=== PATIENT | male | born 1935 | race Caucasian/White ===

== ENCOUNTER 2024-04-15 09:57 | Inpatient (IN) ==
[2024-04-15 11:28] LABS: Basophils # (auto) 0.02 K/uL (0.00-0.20); Basophils % (auto) 0.4 %; Eosinophils # (auto) 0.05 K/uL (0.00-0.50); Eosinophils % (auto) 0.9 %; Immature Granulocytes # (auto) 0.02 K/uL (0.01-0.20); Immature Granulocytes % (auto) 0.4 %; Lymphocytes # (auto) 0.52 K/uL (1.20-3.40); Lymphocytes % (auto) 9.3 %; Mean Corpuscular Hemoglobin 31.7 pg (25.0-34.0); Mean Corpuscular Hgb Conc 33.3 g/dL (32.0-36.0); Mean Corpuscular Volume 95.1 fL (80.0-100.0); Mean Platelet Volume 10.9 fL (9.4-12.4); Monocytes # (auto) 0.51 K/uL (0.11-0.59); Monocytes % (auto) 9.1 %; Neutrophils # (auto) 4.46 K/uL (1.40-6.50); Neutrophils % (auto) 79.9 %; Platelet Count 130 K/uL (130-400); RDW Coefficient of Variation 15.5 % (11.5-14.5); RDW Standard Deviation 53.9 fL (36.4-46.3); Red Blood Count 3.47 M/uL (4.70-6.10); White Blood Count 5.58 K/ul (4.8-10.8)
[2024-04-15 11:40] LABS: Alanine Aminotransferase 10 U/L (7-52); Albumin Globulin Ratio 1.6 (0.9-2); Albumin Level 4.1 gm/dl (3.4-5.0); Alkaline Phosphatase 64 U/L (34-104); Anion Gap 8 (3-11); Aspartate Aminotransferase 17 U/L (13-39); BUN Creatinine Ratio 18.2 (10-20); Bilirubin,Total 0.5 mg/dl (0.2-1.0); Blood Urea Nitrogen 30 mg/dl (6-23); Calcium 8.8 mg/dl (8.6-10.3); Carbon Dioxide 24 mmol/L (21-32); Chloride 106 mmol/L (98-107); Globulin 2.6 gm/dl (2.5-4.0); Glucose 126 mg/dl (70-99(Fasting)); Potassium 3.8 mmol/L (3.5-5.1); Sodium 138 mmol/L (136-145); Total Protein 6.7 gm/dl (6.0-8.3)
[2024-04-15 11:51] LABS: Partial Thromboplastin Time 26 Seconds (21-31)
--- NOTE | 2024-04-15 12:27 | Emergency Department Note ---
Impression & Plan GI bleed, Anemia, Colostomy present ED Provider Note NAME: ARTUR COSTELLO AGE: 88 SEX: M : 1935 ARRIVES VIA: Ambulance INFORMANT: Patient, ED PROVIDER(S): Nhan Cee MD CHIEF COMPLAINT: GI bleeding MEDICAL DECISION MAKING: Patient presents due to concern for GI bleeding. IV was established and blood work was obtained. Patient initially seen in the triage area as there were no beds in which the patient could be seen. Patient with a normal white count hemoglobin 11 which is chronic and stable. Platelet count is unremarkable. Kidney function with creatinine 1.65 which is around the patient's baseline at least from seen back in August. BSG 126 but nonfasting not DKA. Type and screen ordered. Patient does have melenic appearing stool from the ostomy which is Hemoccult positive. I did discuss the possibility of talking with GI and close outpatient follow-up but as the patient is of an older age and the patient reports more significant bleeding prior to being seen today do not think it unreasonable to offer admission of the patient. PPI bolus and drip ordered. I did consider escalation of care and did offer admission of the patient the patient would prefer inpatient stay. I did message with the on-call parliamentary librarian Dr. Woodson to make him aware. I did speak Alejandra Bolivar PA-C and the patient was admitted by Dr. Tucker. Discussion w/ other healthcare providers: Alejandra Bolivar PA-C and Dr. Tucker inpatient medicine service Dr. Woodson gastroenterology Prior /Outside records reviewed: none Differential diagnosis: Diverticulitis, AVM, coagulopathy, colitis, inflammatory bowel disease, malignancy, esophagitis, peptic ulcer disease, variceal bleed, gastritis, fissure, hemorrhoids, as well as other pathologies. Diagnostics, as interpreted by me: ECG: none Cardiac monitoring: An order was placed for continuous cardiac monitoring. The monitor shows a rate of 87 with sinus rhythm. Patient was placed on pulse oximetry Medical decision rules: none Imaging studies: None HPI: Patient presents due to concern for GI bleeding. Patient reports that Friday and Friday the patient had more bright red blood noted coming from his colostomy. The patient does report that years ago he did have a more significant concerning lesion within the colon. Patient also does report that he had a AAA and ex lap repair completed in 2013 and subsequently did develop a ventral incarcerated hernia which resulted and his hemicolectomy and associated ostomy. Patient reportedly had some bleeding in 2015 had a colonoscopy performed by Dr. Terry at which point in time there was a lesion that after discussion with surgery could have been malignant and thus the patient was referred to colorectal surgery at [facility]. Patient's that he is not had any bleeding since then. Patient does not take aspirin Plavix or blood thinners. Patient denies any abdominal pain no nausea or vomiting. Patient was concerned given the bleeding. PAST MEDICAL HISTORY: See Below PAST SURGICAL HISTORY: See Below SOCIAL HISTORY: See Below HOME MEDICATIONS: See Below ALLERGIES: See Below VITALS: See Below PHYSICAL EXAMINATION: GENERAL: NAD, non-toxic. Wearing glasses. EYE EXAM: Normal conjunctiva. PERRL, no anisocoria and EOM's grossly intact w/o pain. OROPHARYNX: Moist mucus membranes, grossly normal dentition. NECK: Trachea midline, no stridor. Supple, no nuchal rigidity, no adenopathy, non-tender. No signs of meningismus. FROM of the neck with good chin to chest and neck extension. LUNGS: Clear to auscultation. Normal chest wall mechanics. HEART: NSR, no MRG. ABDOMEN: Abdomen soft, non-tender, incisional scars well-healed noted over the abdomen, ostomy noted in the left abdomen, melenic stool noted, heme positive. No masses, no rebound or guarding. BACK: No CVA TTP. SKIN: No rashes and no bruising. UPPER EXTREMITIES: Upper extremities are grossly normal. LOWER EXTREMITIES: Grossly normal, no edema. NEURO EXAM: A&O x3, cranial nerves II-XII grossly intact, normal speech, moves all 4 extremities. 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 Diverticulosis Acute GI bleeding Surgical History S/P small bowel resection History of bowel resection with colostomy S/P AAA repair Family History Other Cancer Social History Smoking Status: Former smoker Tobacco Type: Cigarettes Hx Alcohol Use: Yes Alcohol type: hard liquor Hx Substance Use: No Preferred Language: Lao Communication Ability: Effective 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 Required: No Beliefs That Will Affect Care: None Current Living Situation: Spouse Current Living Situation Comment: [facility] Other Information That Helps Us Care for You: No Feels Safe at Home: Yes Safety Concerns: Feels Safe At This Time Assistive Devices: Glasses Allergies Allergies Allergy/AdvReac Type Severity Reaction Status Date / Time aspirin AdvReac Intermediate NOSE BLEEDS Verified 09/02/23 23:13 EYE NUMBING AGENT AdvReac Intermediate EYE Uncoded 09/02/23 23:13 IRRITATION Home Meds Home Medications Medication Instructions Recorded Confirmed ascorbic acid (vitamin C) 1,000 mg 1 g PO BID 09/02/23 04/15/24 tablet (Vitamin C) diltiazem HCl 180 mg 180 mg PO QPM 09/02/23 04/15/24 capsule,extended release 24 hr escitalopram oxalate 10 mg tablet 10 mg PO QAM 09/02/23 04/15/24 esomeprazole magnesium 20 mg 20 mg PO QAM 09/02/23 04/15/24 capsule,delayed release loratadine 10 mg tablet (Claritin) 10 mg PO PM 09/02/23 04/15/24 tamsulosin 0.4 mg capsule 0.4 mg PO QPM 09/02/23 04/15/24 trazodone 50 mg tablet 50 - 100 mg PO HS PRN Insomnia 09/02/23 04/15/24 vit C 250 mg-vit E 90 mg-zinc 40 1 tab PO PM 04/15/24 04/15/24 mg-copper 1 [id number] capsule (PreserVision AREDS-2) zaleplon 10 mg capsule 10 mg PO HS PRN Insomnia 04/15/24 04/15/24 Results & Data (ED) Vital Signs Vital Signs - 24 hr 04/15/24 10:07 04/15/24 11:50 04/15/24 13:30 Temperature 36.1 C L Temperature Source Temporal Artery Scan Pulse Rate 90 76 Pulse Rate [Finger] 83 Respiratory Rate 20 17 22 Respiratory Effort / Characteristics Non-Labored Spontaneous Non-Labored Spontaneous Respiratory Depth Normal Normal Respiratory Pattern Regular Regular Blood Pressure 128/76 156/99 H Blood Pressure [Right Arm] 122/83 Blood Pressure Mean 93 118 Blood Pressure Mean [Right Arm] 96 Pulse Oximetry 94 95 97 Oxygen Delivery Method Room Air Room Air Sepsis Recent Fever Within 48 Hours No Sepsis New/Unexplained Change in Mental Status N/A Sepsis Action Taken by Nursing No Action Required Home Medications Current Medication List: was personally reviewed by me Laboratory Data Attestation: I reviewed the patient's lab results. 04/15/24 11:06 04/15/24 11:06 Lab Results 04/15/24 Range/Units 11:06 WBC 5.58 (4.8-10.8) K/ul RBC 3.47 L (4.70-6.10) M/uL Hgb 11.0 L (14.0-18.0) g/dl Hct 33.0 L (42.0-52.0) % MCV 95.1 (80.0-100.0) fL MCH 31.7 (25.0-34.0) pg MCHC 33.3 (32.0-36.0) g/dL RDW Std Deviation 53.9 H (36.4-46.3) fL RDW Coeff of Janeth 15.5 H (11.5-14.5) % Plt Count 130 (130-400) K/uL MPV 10.9 (9.4-12.4) fL Immature Gran % (Auto) 0.4 % Neut % (Auto) 79.9 % Lymph % (Auto) 9.3 % Sibley % (Auto) 9.1 % Eos % (Auto) 0.9 % Baso % (Auto) 0.4 % Neut # (Auto) 4.46 (1.40-6.50) K/uL Lymph # (Auto) 0.52 L (1.20-3.40) K/uL Sibley # (Auto) 0.51 (0.11-0.59) K/uL Eos # (Auto) 0.05 (0.00-0.50) K/uL Baso # (Auto) 0.02 (0.00-0.20) K/uL Immature Gran # (Auto) 0.02 (0.01-0.20) K/uL PT 11.0 (9.0-12.0) Seconds INR 1.0 (0.9-1.1) APTT 26 (21-31) Seconds PTT Ratio 1.0 Sodium 138 (136-145) mmol/L Potassium 3.8 (3.5-5.1) mmol/L Chloride 106 (98-107) mmol/L Carbon Dioxide 24 (21-32) mmol/L Anion Gap 8 (3-11) BUN 30 H (6-23) mg/dl Creatinine 1.65 H (0.6-1.4) mg/dl Est Cr Clr Drug Dosing Not Reportable eGFR 40.19 BUN/Creatinine Ratio 18.2 (10-20) Glucose 126 H (70-99(Fasting)) mg/dl Calcium 8.8 (8.6-10.3) mg/dl Total Bilirubin 0.5 (0.2-1.0) mg/dl AST 17 (13-39) U/L ALT 10 (7-52) U/L Alkaline Phosphatase 64 (34-104) U/L Total Protein 6.7 (6.0-8.3) gm/dl Albumin 4.1 (3.4-5.0) gm/dl Globulin 2.6 (2.5-4.0) gm/dl Albumin/Globulin Ratio 1.6 (0.9-2) Blood Type O Positive Antibody Screen NEGATIVE Administered Medications Pantoprazole Sodium 40 mg/ (Dextrose) 100 mls @ 20 mls/hr IV Q5H SANTHOSH Stop: 05/15/24 12:44 Last Admin: 04/15/24 13:53 Dose: 8 mg/hr, 20 mls/hr Documented By: NRB Sodium Chloride (Nss) 1,000 mls @ 80 mls/hr IV .[id number] SANTHOSH Stop: 04/16/24 17:30 Last Admin: 04/15/24 17:53 Dose: 80 mls/hr Documented By: BCD Discontinued Medications Pantoprazole Sodium 80 mg/ (Dextrose) 120 mls @ 480 mls/hr IV NOW ONE Stop: 04/15/24 12:41 Last Infusion: 04/15/24 13:50 Dose: Infused Documented By: Admin: 04/15/24 13:33 Dose: 480 mls/hr Documented By: NIKOLAI Pantoprazole Sodium (Pantoprazole Bolus/Drip) 1 each IV NOW STA Stop: 04/15/24 12:28 Last Admin: 04/15/24 15:18 Dose: Not Given Documented By: MMF Discharge Plan Visit Data Chief Complaint: Bleeding Stated Complaint: ostomy bag ED Provider: Nhan Cee Discharge Problem: GI bleed, Anemia, Colostomy present Patient Disposition: Admitted As Inpatient Discharge Instructions Interventions: ED Discharge Assessment Last Done: 04/15/24 16:33 Discharge Problem: GI bleed Qualifiers: GI bleed type/associated pathology: melena Qualified Code(s): K92.1 - Melena Anemia Qualifiers: Anemia type: unspecified type Qualified Code(s): D64.9 - Anemia, unspecified
--- NOTE | 2024-04-15 13:06 | History & Physical Report ---
Date of Service April 15, 2024 Assessment & Plan (1) GI bleed: (2) Hematochezia: (3) Parastomal hernia: (4) Anemia: Plan: Patient is 88-year-old male with PMH HTN, HLD, GERD, BPH, ischemic colitis, 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 4 days ago started with red blood filling his ostomy bag x 3 episodes with since blood mixed with stool. 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 Biopsied. Injected. Clip was placed. 09/03/23 Cecum, ulcerated mass, biopsy: Ulcerated granulation tissue and inflamed adenoma. Comment: The history of a mass is noted. The vast majority of the specimen consists of ulcerated granulation tissue. One fragment of inflamed adenoma is noted. No diagnostic adenocarcinoma is identified In ER afebrile, vital stable. No leukocytosis. H/H: 11/33. (Hgb: 10 on discharge on 09/07/2023). BUN: 30, Cr: 1.65 In ER given Protonix bolus and drip Currently no apparent bright red blood in ostomy bag. H&H and vitals stable. Will repeat H&H tonight Type and cross PRBC's. Hold for now. Continue Protonix IV NPO for now GI consult CBC, BMP in am Blood consent was obtained from the patient as delegated by Dr. Tucker. Risks and benefits were explained. All questions were answered, and the patient (or patient delegate) was offered the opportunity to discuss with attending physician and declined. (5) CKD (chronic kidney disease), stage III: Plan: Cr: 1.65. 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 Will hold zaleplon DVT Prophylaxis SCDs Admit med/tele Full Code as per discussion with pt, however reports would not want prolonged ventilation Follows with Dr Charles aJrrett for routine care Pt was seen and care coordinated with Dr Tucker. See addendum I spent a total of 70 minutes reviewing notes, outpatient records, labs, medication, coordinating, documenting and providing care for this patient excluding time spent in the performance of separately billed services. History of Present Illness Chief Complaint: Bleeding from ostomy Primary Care Provider: Dr Charles Jarrett Patient is 88-year-old male with PMH HTN, HLD, GERD, BPH, ischemic colitis, ruptured AAA repair in 2013 requiring emergency repair then developed incarcerated ventral hernia with small bowel perforation and sigmoid perfor ation, status post small bowel resection with anastomoses and left hemicolectomy presented to ER today with c/o bleeding into ostomy started 4 days ago. Patient states Friday night started with red blood filling his ostomy bag. Patient states had 3 episodes of filling ostomy bag with red blood over the first 24 hours. Since that time he has noticed blood mixed in with stool. Yesterday feeling a little lightheaded and more nauseated than usual so didn't eat much and states hasn't had stool output today. Today did notice some dark looking blood around stoma site. Denies vomiting, fever/chills. History of hospitalization at [facility] 09/02/2023-09/07/2023 for bright red blood from ostomy and had colonoscopy showing partially obstructing bleeding mass and bleeding was clipped during colonoscopy, and also with parastomal hernia. He states since that time had been doing well until 4 days ago[address] with [address] Kaplan colorectal surgery at [facility]. Patient reports that he would not want any major surgeries but would undergo scope if needed. Has nausea upon first awakening in mornings for past 10 years. Has intermittent right flank pain x years. Denies abdominal pain, fever/chills, diaphoresis, VILLEGAS, syncope, CP, SOB, palpitations, cough, rhinorrhea, paresthesias, weakness, extremity edema, rashes, urinary symptoms. Allergies Allergy/AdvReac Type Severity Reaction Status Date / Time aspirin AdvReac Intermediate NOSE BLEEDS Verified 09/02/23 23:13 EYE NUMBING AGENT AdvReac Intermediate EYE Uncoded 09/02/23 23:13 IRRITATION Home Medications Medication Instructions Recorded Confirmed Type ascorbic acid (vitamin C) 1,000 mg 1 g PO BID 09/02/23 04/15/24 History tablet (Vitamin C) diltiazem HCl 180 mg 180 mg PO QPM 09/02/23 04/15/24 History capsule,extended release 24 hr escitalopram oxalate 10 mg tablet 10 mg PO QAM 09/02/23 04/15/24 History esomeprazole magnesium 20 mg 20 mg PO QAM 09/02/23 04/15/24 History capsule,delayed release loratadine 10 mg tablet (Claritin) 10 mg PO PM 09/02/23 04/15/24 History tamsulosin 0.4 mg capsule 0.4 mg PO QPM 09/02/23 04/15/24 History trazodone 50 mg tablet 50 - 100 mg PO HS PRN Insomnia 09/02/23 04/15/24 History vit C 250 mg-vit E 90 mg-zinc 40 1 tab PO PM 04/15/24 04/15/24 History mg-copper 1 [id number] capsule (PreserVision AREDS-2) zaleplon 10 mg capsule 10 mg PO HS PRN Insomnia 04/15/24 04/15/24 History Past Med/Surg History Problem List (Updated 04/15/24 @ 14:21 by Alejandra Celestin PA-C) Hematochezia Anemia Parastomal hernia Colonic mass GI bleed Medical History (Updated 04/15/24 @ 14:21 by Alejandra Celestin PA-C) Insomnia Depression BPH (benign prostatic hyperplasia) CKD (chronic kidney disease), stage III Ischemic colitis Peripheral vascular disease CAD (coronary artery disease) Acute kidney injury Nephrolithiasis Renal cyst Hypertension 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 Diverticulosis Acute GI bleeding Surgical History S/P small bowel resection History of bowel resection with colostomy S/P AAA repair Family History (Updated 04/15/24 @ 14:07 by Alejandra Celestin PA-C) Other Cancer Social History Smoking Status: Former smoker Tobacco Type: Cigarettes Hx Alcohol Use: No Hx Substance Use: No Preferred Language: Syrian Communication Ability: Effective Rubber Curer Required: No Beliefs That Will Affect Care: None Current Living Situation: Spouse Feels Safe at Home: Yes Assistive Devices: Cane Review of Systems Review of Systems: All systems reviewed & are unremarkable except as noted in HPI & below Physical Exam Physical Exam: General: no acute distress, WDWN, pleasant elderly male Head: normocephalic, atraumatic Eyes: conjunctiva non-injected, anicteric ENT: normal inspection external ears, nose, mucous membranes moist Neck: supple, trachea midline Lungs: clear, no respiratory distress, no wheezing/rhonchi/rales CV: RRR, no murmur, no pretibial edema Abd: +healed surgical incisions, +ventral hernia, +ostomy left abdomen, currently ostomy bag without noted blood or stool, hypoactive BS, soft, non- tender to palpation Ext: no cyanosis, no calf tenderness Neuro: A&O x 3, no focal deficits noted, normal affect Skin: warm, dry Results & Data Results & Data Vital Signs (Past 12 Hours) Vital Signs Temp Pulse Pulse Resp BP BP Pulse Ox 04/15/24 11:50 83 17 122/83 95 04/15/24 10:07 36.1 C L 90 20 128/76 94 O2 Del Method 04/15/24 11:50 Room Air 04/15/24 10:07 Room Air Laboratory Results Short CBC 04/15/24 Range/Units 11:06 WBC 5.58 (4.8-10.8) K/ul Hgb 11.0 L (14.0-18.0) g/dl Hct 33.0 L (42.0-52.0) % Plt Count 130 (130-400) K/uL BMP 04/15/24 11:06 Sodium 138 Potassium 3.8 Chloride 106 Carbon Dioxide 24 BUN 30 H Creatinine 1.65 H Glucose 126 H Calcium 8.8 Liver Function 04/15/24 Range/Units 11:06 Total Bilirubin 0.5 (0.2-1.0) mg/dl AST 17 (13-39) U/L ALT 10 (7-52) U/L Alkaline Phosphatase 64 (34-104) U/L Albumin 4.1 (3.4-5.0) gm/dl Supervising Physician Co-Signing Physician Notes I have seen and discussed the case with the collaborating advanced practitioner. I agree with the above H&P. I have reviewed and confirmed the patients medical history, the findings on physical examination, and the patients diagnosis and treatment plan with Fawad MERINO and agree with the information documented. In short, Mr. Tillman is an 88 year old gentleman with hx of small bowel perf s/p resection who is admitted for concern for bloody ostomy output. Hgb stable at 11. No abdominal pain and no blood noted in bag at time of exam Last Colonoscopy; States that his stoma started bleeding so underwent colonoscopy FINAL DIAGNOSIS Cecum, ulcerated mass, biopsy: - Ulcerated granulation tissue and inflamed adenoma. - See comment. Comment: The history of a mass is noted. The vast majority of the specimen consists of u lcerated granulation tissue. One fragment of inflamed adenoma is noted. No diagnostic adenocarcinoma is identified. Clinical History Anemia, GI bleed. Procedure performed: Colonoscopy. Gross Description ULCERATED MASS IN CECUM The specimen is received in a container labeled ulcerated mass in cecum with the patient name. The specimen consists of multiple pink, valerio and red irregular fragments of soft tissue. The fragments range from less than 0.1 to 0.4 cm in greatest dimension. The specimen is submitted entirely in a single cassette for levels. AH Microscopic Description Pancytokeratin is negative in the fragments of inflamed/ulcerated granulation tissue. CD31 highlights endothelial cells and a granulation tissue type architecture. GENERAL APPEARANCE: AxOx4, generally well-appearing M for stated age HEENT: NC, AT. MMM. EOMI, clear conjunctiva, oropharynx clear. HEART: Normal rate and regular rhythm, normal S1/S1, no m/r/g LUNGS: CTAB, moving air well. No crackles or wheezes are heard. ABDOMEN: protuberant, empty ostomy bag during exam BACK: No CVAT, no obvious deformity. EXTREMITIES: Without cyanosis, clubbing or edema. NEUROLOGICAL: Grossly nonfocal. Alert and oriented, moving all 4 extremities. CN not formally tested but appear grossly intact Skin: Warm and dry without any rash. : #GIB, bright red blood per ostomy #History of inflamed adenoma no output noted a bedside, exam benign CLD PPI drip trend H&H GI consult consented for blood I spent a total of 15 minutes coordinating, documenting, and providing care for this patient excluding time spent in the performance of separately billed services. All of the aforementioned completed outside of collaborating with the assigned advanced practitioner for a full treatment plan. I have reviewed the advanced practitioner's documentation, and I agree with, and take responsibility for the plan of care
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
--- OUTSIDE RECORDS SUMMARY | 2024-04-15 13:23 | External Medical Summary | Summary of Care ---
Author Name Unknown Organization [facility] Address [address] [place] [address] Phone [phone] Care Team Providers Care Billing Assistant Name Role Phone Charles Jarrett MD Primary Care Provider [phone] Reason for Visit * Reason Comments Mohs Surgery Nose * Evaluate & Treat - Unlimited Visits (Within 30 days (routine)) - Authorized Specialty Diagnoses / Procedures Referred By Rosetta t Referred To Contact Dermatology Diagnoses Basal cell carcinoma (BCC) of skin of nose Lizabeth Shah MD [address] [place] [phone] Referral ID Status Reason Start Date Expiration Date Visits Requested Visits Authorized [id number] Authorized Specialty Services Required 12/25/[phone] Encounter Details Date Type Department Care Team (Late st Contact Info) Description 01/26/2024 8:00 AM EDT Office Visit MOHS Surgery [facility] [address] [place] [address] Ania Schumacher MD [address] [place] [address] Basal cell carcinoma (BCC) of right nasal [...] by mouth twice daily. Active Nystatin (NYSTOP) 777992 UNIT/GM powder Apply topically to affected area [...] nasal tip 1000 mg OR ONCE 01/26/2024 01/27/2024 Ended documented as of this encounter (statuses [...] because he has a neighbor urologist in [place] who recommended against it unless PSA rises [...] MD - 01/26/2024 8:15 AM EDT [facility] Note (See separate transcribed operative note [...] AM EDT Chief Complaint Patient presents with [facility] Surgery Nose Referral Doctor: Alyssa Hypertension History: [...] 01/30/2024 7:30 AM EDT Hospital Encounter OR [facility], OPERATING ROOM [facility] [place] [address] [place] [phone] Nils Moore MD [facility] [address] [place], [place] [phone] 01/30/2024 7:30 AM EDT - 01/30/2024 9:34 AM EDT Surgery OR [facility], OPERATING ROOM [facility], [facility] [address] [place] [address] Nils Moore MD [facility] [place] [address] REVISION OF COLOSTOMY SIMPLE 02/12/2024 12:15 PM EDT Office Visit [facility] [address] [place], [place] [phone] Janna Ibarra MD [address] [place] [address] 02/18/2024 3:30 PM EST Office Visit General Surgery, [address] [phone] Edwige Forrest PA-C [facility] [address] [place], [place] [phone] 03/29/2024 2:30 PM EST Office Visit General Surgery, [place] [address] [place] [address] Cipriano Wyatt DO [address] [place] [address] 07/06/2024 1:30 PM EDT Office Visit General Internal Medicine, [facility] [address] [place] [address] Charles Jarrett MD [address] [place] [address] Scheduled Procedures Name Priority Associated [...] 01/02/2024 01/01/2023, 11/12 CKD HGB USE SMARTSET 68903 05/19/202405/19, 05/19/2023, 01/01/2023, Additional history exists CKD PHOS USE SMARTSET 36382 07/20/2024 040 11/2023, 07/05/2022, 12/26/2021, Additional history exists Colonoscopy Discontinued 12/15/2013, 06/2010, 11/14/2010, Additional history exists HPV (Gardasil) Vaccine Aged Out No lo nger eligible based on patient's age to complete this topic MENINGOCOCCAL (MENACTRA/MENVEO) Aged Out No longer eligible based on patient's age to complete this topic documented as of this encounter Medical Devices Implanted Type Area Athletic Equipment Custodian Device Identifier Shelf Expiration Date Model / Serial / Lot Graft Jorge Carter18mm [id number] - [id number] Implanted:Qty : 1 on 12/09/2013 at OR [facility] N/A: Aorta [employer] 10/11/2017 [id number] / / [id number] Drain Glcm Brvldt [employer] Imnpl - [id number] - [id number] Implanted:Qty : 1 on 10/19/2020 by Sheryl Narayanan MD at [facility] Left: Eye [employer] [id number] 04/20/2022 [id number] / [id number] / LOT NA Graft Eunice Cornea Split - [id number] - [id number] Implanted:Qty : 1 on 10/19/2020 by Sheryl Narayanan MD at OR [facility] Left: Eye [employer] 03/13/2022 HCO-HH1 / [id number] / [id number] Drain Glcm Brvldt [facility] Imnpl - [id number] - [id number] Implanted:Qty : 1 on 12/03/2021 by Sheryl Narayanan MD at [facility] Left: Eye [employer] [id number] 01/11/2023 [id number] / [id number] / LOT NA Graft Eunice Cornea Split - [id number] - [id number] Implanted:Qty : 1 on 12/03/2021 by Sheryl Narayanan MD at [facility] Left: Eye [employer] 09/04/2023 HCO-HH1 / [id number] / [id number] documented as of this encounter Visit Diagnoses Diagnosis History of creation of ostomy (HCC)- Primary 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 No Care Teams Billing Assistant Relationship Specialty Start Date End Date Charles Jarrett MD [address] [place] [address] PCP - General Internal Medicine 10/25/19 documented as of this encounter
--- OUTSIDE RECORDS SUMMARY | 2024-04-15 13:23 | External Medical Summary | Summary of Care ---
Author Name Unknown Organization [facility] Address [address] [place] [address] Phone [phone] Care Team Providers Care Nail Technician Teacher Name Role Phone Charles Jarrett MD Primary Care Provider [phone] Reason for Visit * Reason Onset Date Comments Appointment 02/13/2024 Encounter Details Date Type Department Care Team (Late st Contact Info) Description 02/13/2024 Telephone [facility] [address] [place], [place] [phone] Janna Ibarra MD [address] [place] [address] Appointment Allergies Active Allergy Reactions Criticality Noted Date Comments Proparacaine Hcl Other (Please comment) 016 sensitivity per pt- causes itching, irritation to eyelids Aspirin Low 11/09/2012 Nose bleed; CAN tolerate NSAIDs documented as of this encounter (statuses as of 02/24/2024) Medications Ascorbic Acid (VITAMIN C) 1000 MG Tablet 1 tablet by mouth twice daily. Active Nystatin (NYSTOP) 711873 UNIT/GM powder Apply topically to affected area [...] as of this encounter (statuses as of 02/24/2024) Active Problems Problem Noted Date Diagnosed Date [...] because he has a neighbor urologist in [place] who recommended against it unless PSA rises [...] as of this encounter (statuses as of 02/24/2024) Resolved Problems Problem Noted Date Diagnosed Date [...] as of this encounter (statuses as of 02/24/2024) Immunizations Name Administration Dates Next Due COVID-19 [...] Assessment Author No 04/23/2021 2:00 PM EST BalplacidosMarlonGriffin, ORTHOTIC AIDE * Are you blind or do you have serious difficulty seeing, even when wearing glasses? Answer Date of Assessment Author No 04/23/2021 2:00 PM EST Balonis, Griffin, ORTHOTIC AIDE * Do you have serious difficulty walking or climbing stairs? (5 years old or older) Answer Date of Assessment Author No 04/23/2021 2:00 PM EST Balonis Griffin, ORTHOTIC AIDE * Do you have difficulty dressing or bathing? (5 years old or older) Answer Date of Assessment Author No 04/23/2021 2:00 PM EST Balonis, Griffin, ORTHOTIC AIDE * Because of a physical, mental, or emotional condition, do you have difficulty doing errands alone such as visiting a doctors office or shopping? (15 years old or older) Answer Date of Assessment Author No 04/23/2021 2:00 PM EST BalMarlon nietoyel, ORTHOTIC AIDE documented as of this encounter Mental Status * Because of a physical, mental, or emotional condition, do you have serious difficulty concentrating, remembering, or making decisions? (5 years old or older) Answer Entry Date Author No 04/23/2021 2:00 PM EST Marlon Steelyel, ORTHOTIC AIDE documented in this encounter Miscellaneous Notes * Telephone Encounter - Argentina Bhakta OSA - 02/13/2024 7:25 AM EDT Please assist with scheduling. Return for in October IOP check Dr Abarca documented in this encounter Plan of Treatment Upcoming Encounters Date Type Department Care Team (Late st Contact Info) Description 03/29/2024 2:30 PM EST Office Visit General Surgery, [facility] [address] [place] [address] Cipriano Wyatt DO [address] [place] [address] 07/06/2024 1:30 PM EDT Office Visit General Internal Medicine [facility] [address] [place] [phone] Charles Jarrett MD [address] [place] [address] 08/17/2024 1:15 PM EDT Office Visit [address] [address] Niru Eli MD [address] [place] [address] [facility] [address] [place] [address] Photographer Gretel [address] [address] 11/04/2024 12:15 PM EDT Office Visit [address] [address] Janna Ibarra MD [address] [place] [phone] Health Maintenance Due Date Last Done Comments DTap/Tdap Vaccines (1 - Tdap) 1954 Zoster Vaccines (1 of 2) 1987 Adult Wellness Visit 2003 Pneumococcal Vaccine: 65+ Years (2 of 2 - PCV) 03/31/2004 03/31/2003 COVID-19 Vaccine (3 - 2023- season) 2023 08/03/2020, 07/06/2020 Influenza Vaccine (FLU shot) (#1) 2023 01/01/2023, 01/26/2022, 01/30/2021, Additional history exists Albumin/Creatinine Ratio 01/02/2024 01/01/2023, 11/12 CKD HGB USE SMARTSET 20403 05/19/202405/19, 05/19/2023, 01/01/2023, Additional history exists CKD PHOS USE SMARTSET 78817 07/20/202411/2023, 07/05/2022, 12/26/2021, Additional history exists Colonoscopy Discontinued 12/15/2013, 06/2010, 11/14/2010, Additional history exists HPV (Gardasil) Vaccine Aged Out No lo nger eligible based on patient's age to complete this topic MENINGOCOCCAL (MENACTRA/MENVEO) Aged Out No longer eligible based on patient's age to complete this topic documented as of this encounter Medical Devices Implanted Type Area Property Management Bookkeeper Device Identifier Shelf Expiration Date Model / Serial / Lot Graft Hemashld [id number] - [id number] Implanted:Qty : 1 on 12/09/2013 [place] [facility] [place]A: Aorta Xuba 10/11/2017 [id number] / / [id number] Drain Glcm Brvldt [facility] Imnpl - [id number] - [id number] Implanted:Qty : 1 on 10/19/2020 by Sheryl Narayanan MD at [facility] Left: Eye [employer] [id number] 04/20/2022 [id number] / [id number] / LOT NA Graft [place] Cornea Split - [id number] - [id number] Implanted:Qty : 1 on 10/19/2020 by Sheryl Narayanan MD at [facility] Left: Eye [employer] 03/13/2022 HCO-HH1 / [id number] / [id number] Drain Glcm Brvldt [facility] Imnp - [id number] - [id number] Implanted:Qty : 1 on 12/03/2021 by Sheryl Narayanan MD at [facility] Left: Eye [employer] [id number] 01/11/2023 [id number] / [id number] / LOT NA Graft [place] Cornea Split - [id number] - [id number] Implanted:Qty : 1 on 12/03/2021 by Sheryl Narayanan MD at [facility] Left: Eye [employer] 09/04/2023 HCO-HH1 / [id number] / [id number] documented as of this encounter Advance Directives * Full Code [...] of Attor luis m? No Care Teams Nail Technician Teacher Relationship Specialty Start Date End Date Charles Jarrett MD [address] [place] [address] PCP - General Internal Medicine 10/25/19 documented as of this encounter
--- OUTSIDE RECORDS SUMMARY | 2024-04-15 13:23 | External Medical Summary | Summary of Care ---
Author Name Unknown Organization [facility] Address [address] [place] [address] Phone [phone] Care Team Providers Care Family Consultant Name Role Phone Charles Jarrett MD Primary Care Provider [phone] Reason for Visit * Reason Comments Other Vision about the shannon e left eye, poor right eye Encounter Details Date Type Department Care Team (Latest Contact Info) Description 02/12/2024 3:00 PM EDT Office Visit [facility] [address] [place], [place] [address] Niru Eli MD [address] [place], [place] [phone] Exudative age-related macular degeneration of right eye with active choroidal neovascularization (HCC)* Allergies Active Allergy Reactions Criticality Noted Date Comments Proparacaine Hcl Other (Please comment) 016 sensitivity per pt- causes itching, irritation to eyelids Aspirin Low 11/09/2012 Nose bleed; CAN tolerate NSAIDs documented as of this encounter (statuses as of 02/12/2024) Medications Medication Sig Dispensed Refills Start Date End Date Status Ascorbic Acid (VITAMIN C) 1000 MG Tablet 1 tablet by mouth twice daily. Active Nystatin (NYSTOP) 856201 UNIT/GM powder Apply topically to affected area [...] THE EVENING 90 Capsule 3 10/15/2023 Active documented as of this encounter (statuses as of 02/12/2024) Active Problems Problem Noted Date Diagnosed Date [...] because he has a neighbor urologist in [place] who recommended against it unless PSA rises [...] as of this encounter (statuses as of 02/12/2024) Resolved Problems Problem Noted Date Diagnosed Date [...] as of this encounter (statuses as of 02/12/2024) Immunizations Name Administration Dates Next Due COVID-19 [...] as of this encounter Progress Notes * Moni Leavitt TECH - 02/12/2024 2:34 PM EDT 02/12/2024 6 month follow up AMD OU CC: No chief complaint on file. Nursing notes reviewed. Visual Acuity Visual Acuity (Snellen - Linear) Right Left Dist sc CF 20/80 Edited by: Moni Leavitt [facility] 2001 Glaucoma OS AMD OD Family History Problem Relation Name Age of Onset Other (Brain tumor) Mother Cancer Father Pancreatic cancer Other (Nasal cancer) Sister Other (Other) Sister no family hx of AAA Past Medical History: Diagnosis Date AAA (abdominal [...] performed [place] Nar[place] [facility]PLORATION OF ABDOMEN N/A 08/16/2014 EXPLORATORY LAPAROTOMY performed by Argentina Dumont MD [place] [facility]JECTION OF EYE DRUG 01/18/13 Lucentis #23 [...] performed by Brian Allen MD at [place] [facility] INSERT AQUEOUS SHUNT, EXTERNAL APPROACH Left 10/19/2020 INSERTION AQUEOUS ANTERIOR DRAINAGE DEVICE W/O EXTRAOCULAR RESERVOIR performed by Sheryl Narayanan MD at OR [facility] IR DRAINAGE ABSCESS/SPECIMEN W CATHETER PLACEMENT 08/31/2014 RADIOLOGICAL GUIDANCE FOR ABSCESS DRAINAGE performed by Yandel Gonzalez MD at [place] [facility] VIVIEN FLEX SIGMOID DIAGNOSITIC 12/15/2013 SIGMOIDOSCOPY FLEXIBLE DIAGNOSTIC performed by Solitario Garcia MD at [place] [facility] LASER TRABECULOPLASTY Bilateral 2014 Ama Ruiz LASER [...] signed) RANIBIZUMAB 0.5 MG/0.05ML IO SOLN 12/20. 10 08 adn 02/19 REx3 RANIBIZUMAB 0.5 MG/0.05ML IO SOLN last done 07/21 REx4 RANIBIZUMAB 0.5 MG/0.05ML IO SOLN 12/25/10 Injection # 5 OD (Heberabelily) RANIBIZUMAB 0.5 MG/0.05ML IO SOLN 02/11/11 Injection #6 OD (Heberabelily) RANIBIZUMAB 0.5 MG/0.05ML IO SOLN 03/18/2011 Injection # 7 (13) OD (Heberabelily) RANIBIZUMAB 0.5 MG/0.05ML IO SOLN 08/27/11 lucentis [...] performed by Brian Allen MD at [place] [facility] REMOVAL OF SMALL INTESTINE W/FUSION N/A 08/16/2014 ENTERECTOMY SMALL BOWEL RESECTION performed by Argentina Dumont MD [place] [facility] REPAIR/GRAFT SCLERAL LESION Left 10/19/2020 REPAIR SCLERAL STAPHYLOMA WITH GRAFT performed by Sheryl Narayanan MD at [facility] REPAIR/GRAFT SCLERAL LESION Left 12/03/2021 REPAIR SCLERAL STAPHYLOMA WITH GRAFT performed by Sheryl Narayanan MD at [facility] RUP ANEUR AORTA INVOL RENAL,ME 12/09/2013 REPAIR ANEURYSM ABDOMINAL AORTA VISCERAL RUPTURED performed by Bishop Bianchi MD [place] [facility] Testing OCT (02/12/2024) R:248 L: X OCT (prior) Choroid thin OU R:226 L: 258, no fluid RNFL (prior) R: 68, 68, 55, 66, 69, 67 L: 74, X, 71, 73, 73, 72 IVFA (prior) Window defect, no change from prior photo All relevant labs and/or testing reviewed and discussed with patient. Patient verbalizes understanding. Assessment and Plan Advanced glaucoma OS Glaucoma OD Poor vision, fluctuates throughout the day Choroidal thinning (last done appx 5 years ago, reduced perfusion may affect optic nerve) Dr. 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 Patient advised to call if visual blur, distortion or blind spot develop. Discussed importance of dietary and lifestyle modification including not smoking, and increasing intake of omega 3 (fish three times a week), vitamin D, and smoker formula antioxidants including lutein. 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 Niru Eli MD This note is prepared by Moni Leavitt acting as a Scribe for me. The scribes documentation has been prepared under my direction and personally reviewed by me in its entirely. I confirm that the note above accurately reflects all work, treatment, procedures, and medical decision making performed by me. Niru Eli MD documented in this encounter Nursing Notes * Moni Leavitt TECH - 02/12/2024 2:37 PM EDT Images from the original note were not included. Chuy Tillman presents for 6 month return [...] can be found in the ophth exam. 1239 documented in this encounter Plan of Treatment Upcoming Encounters Date Type Department Care Team (Late st Contact Info) Description 03/29/2024 2:30 PM EST Office Visit General Surgery, [place] [address] [place], [place] [phone] Cipriano Wyatt DO [address] [place], [place] [phone] 07/06/2024 1:30 PM EDT Office Visit General Internal Medicine [address] [place] [address] Charles Jarrett MD [address] [place] [address] Scheduled Orders Name Type Priority Associated Diagnoses [...] PCV) 03/31/2004 03/31/2003 COVID-19 Vaccine (3 - season) 2023 08/03/2020, 07/06/2020 Influenza Vaccine (FLU shot) (#1) 2023 01/01/2023, 01/26/2022, 01/30/2021, Additional history exists Albumin/Creatinine Ratio 01/02/2024 01/01/2023, 11/12 CKD HGB USE SMARTSET 10200 05/19/202405/19, 05/19/2023, 01/01/2023, Additional history exists CKD PHOS USE SMARTSET 24769 07/20/2024 040 11/2023, 07/05/2022, 12/26/2021, Additional history exists Colonoscopy Discontinued 12/15/2013, 06/2010, 11/14/2010, Additional history exists HPV (Gardasil) Vaccine Aged Out No lo nger eligible based on patient's age to complete this topic MENINGOCOCCAL (MENACTRA/MENVEO) Aged Out No longer eligible based on patient's age to complete this topic documented as of this encounter Medical Devices Implanted Type Area Germ Drier Device Identifier Shelf Expiration Date Model / Serial / Lot Graft Hemashld [id number] - [id number] Implanted:Qty : 1 on 12/09/[place] [facility] [place]A: Aorta [place] [employer] (P) 10/11/2017 [id number] / / [id number] [facility] - [id number] - [id number] Implanted:Qty : 1 on 10/19/2020 by Sheryl Narayanan MD at [facility] Left: Eye [employer] [id number] 04/20/2022 [id number] / [id number] / LOT NA Graft [place] Cornea Split - [id number] - [id number] Implanted:Qty : 1 on 10/19/2020 by Sheryl Narayanan MD at [facility] Left: Eye [employer] 03/13/2022 HCO-HH1 / [id number] / [id number] Drain Glcm Brvldt T[employer] Imnpl - [id number] - [id number] Implanted:Qty : 1 on 12/03/2021 by Sheryl Narayanan MD at [facility] Left: Eye [employer] [id number] 01/11/2023 [id number] / [id number] / LOT NA Graft [place] Cornea Split - [id number] - [id number] Implanted:Qty : 1 on 12/03/2021 by Sheryl Narayanan MD at [facility] Left: Eye [employer] 09/04/2023 O-1 / [id number] / [id number] documented as of this encounter Visit Diagnoses Diagnosis Exudative age-related macular degeneration of right eye with active choroidal neovascularization (HCC)- Primary documented in this encounter Advance Directives * [...] of Attor luis m? No Care Teams Family Consultant Relationship Specialty Start Date End Date Charles Jarrett MD [address] [facility] [place] [address] PCP - General Internal Medicine 10/25/19 documented as of this encounter
--- OUTSIDE RECORDS SUMMARY | 2024-04-15 13:23 | External Medical Summary | Summary of Care ---
Author Name Unknown Organization [facility] Address [address] [place] [address] Phone [phone] Care Team Providers Care Wharf Tender Head Name Role Phone Charles Jarrett MD Primary Care Provider [phone] Reason for Visit * Reason Onset Date Comments Medication Refill 02/02/2024 Encounter Details Date Type Department Care Team (Late st Contact Info) Description 02/02/2024 Telephone General Internal Medicine, [place] [facility] [address] [place] [address] Charles Jarrett MD [address] [place] [address] Medication Refill Allergies Active Allergy Reactions Criticality Noted Date Comments Proparacaine Hcl Other (Please comment) 016 sensitivity per pt- causes itching, irritation to eyelids Aspirin Low 11/09/2012 Nose bleed; CAN tolerate NSAIDs documented as of this encounter (statuses as of 02/02/2024) Medications Medication Sig Dispensed Refills Start Date End Date Status Ascorbic Acid (VITAMIN C) 1000 MG Tablet 1 tablet by mouth twice daily. Active Nystatin (NYSTOP) 927737 UNIT/GM powder Apply topically to affected area [...] as of this encounter (statuses as of 02/02/2024) Active Problems Problem Noted Date Diagnosed Date [...] because he has a neighbor urologist in [place] who recommended against it unless PSA rises [...] as of this encounter (statuses as of 02/02/2024) Resolved Problems Problem Noted Date Diagnosed Date [...] as of this encounter (statuses as of 02/02/2024) Immunizations Name Administration Dates Next Due COVID-19 [...] No 04/23/2021 documented as of this encounter Miscellaneous Notes * Telephone Encounter - Niru Emmanuel LPN - 02/02/2024 3:55 PM EDT Called and spoke with patient and yes he does take Zaleplon once or twice a week * Telephone Encounter - Nelson Fernando, heater helper - 02/02/2024 3:39 PM EDT Pt calling requesting the following medication below that is listed as "Historical". The following information was provided: Medication Name: Zaleplon 10 MG Capsule Directions: 1-2 times a week Preferred Quantity: 90DS Previous Prescriber: Charles Jarrett MD Preferred Pharmacy: [facility] #[id number] Please review and approve if appropriate. Thank you, Armand Fernando, Manager Of Administration Scruff Worker 1 [facility] ([facility] (Formerly Telepharmacy) 02/02/2024,3:39 PM documented in this encounter Plan of Treatment Upcoming Encounters Date Type Department Care Team (Late st Contact Info) Description 02/12/2024 12:15 PM EDT Office Visit [facility] [address] [place] [address] Janna Ibarra MD [address] [place] [address] 03/29/2024 2:30 PM EST Office Visit General Surgery, [place] [address], [place] [phone] Cipriano Wyatt DO [address] [place], [place] [phone] 07/06/2024 1:30 PM EDT Office Visit General Internal Medicine [facility] [address] [place] [address] Charles Jarrett MD [address] [place] [address] Health Maintenance Due Date Last Done Comments DTap/Tdap Vaccines (1 - Tdap) 1954 Zoster Vaccines (1 of 2) 1987 Adult Wellness Visit 2003 Pneumococcal Vaccine: 65+ Years (2 of 2 - PCV) 03/31/2004 03/31/2003 COVID-19 Vaccine (3 - season) 2023 08/03/2020, 07/06/2020 Influenza Vaccine (FLU shot) (#1) 2023 01/01/2023, 01/26/2022, 01/30/2021, Additional history exists Albumin/Creatinine Ratio 01/02/2024 01/01/2023, 0812/2021 CKD HGB USE SMARTSET 64562 05/19/202405/19, 05/19/2023, 01/01/2023, Additional history exists CKD PHOS USE SMARTSET 50307 07/20/202411/2023, 07/05/2022, 12/26/2021, Additional history exists Colonoscopy Discontinued 12/15/2013, 06/2010, 11/14/2010, Additional history exists HPV (Gardasil) Vaccine Aged Out No lo nger eligible based on patient's age to complete this topic MENINGOCOCCAL (MENACTRA/MENVEO) Aged Out No longer eligible based on patient's age to complete this topic documented as of this encounter Medical Devices Implanted Type Area Computer Technologist Device Identifier Shelf Expiration Date Model / Serial / Lot Graft Hemashld [id number] - [id number] Implanted:Qty : 1 on 12/09/2013 [place] [facility] [place]A: Aorta [employer] 10/11/2017 [id number] / / [id number] Drain Glcm Brvldt T[employer] Imnpl - [id number] - [id number] Implanted:Qty : 1 on 10/19/2020 by Sheryl Narayanan MD at [facility] Left: Eye [employer] [id number] 04/20/2022 HK921-977 / [id number] / LOT NA Graft [place] Cornea Split - [id number] - [id number] Implanted:Qty : 1 on 10/19/2020 by Sheryl Narayanan MD at [facility] Left: Eye [facility] [employer] 03/13/2022 HCO-HH1 / [id number] / [id number] Drain Glcm Brvldt Tami Imnpl - [id number] - [id number] Implanted:Qty : 1 on 12/03/2021 by Sheryl Narayanan MD at [facility] Left: Eye [employer] [id number] 01/11/2023 OF748-318 / [id number] / LOT NA Graft [place] Cornea Split - [id number] - [id number] Implanted:Qty : 1 on 12/03/2021 by Sheryl Narayanan MD at OR [facility] Left: Eye [employer] 09/04/2023 HCO-HH1 / [id number] / [id number] documented as of this encounter Advance [...] of Attor luis m? No Care Teams Wharf Tender Head Relationship Specialty Start Date End Date Charles Jarrett MD [address] [place] [address] PCP - General Internal Medicine 10/25/19 documented as of this encounter
--- OUTSIDE RECORDS SUMMARY | 2024-04-15 13:23 | External Medical Summary | Summary of Care ---
Author Name Unknown Organization [facility] Address [address] [place] [address] Phone [phone] Care Team Providers Care Window Assembler Name Role Phone Charles Jarrett MD Primary Care Provider [phone] Reason for Visit * Reason Onset Date Comments Medication Refill 02/02/2024 Encounter Details Date Type Department Care Team (Late st Contact Info) Description 02/02/2024 Telephone General Internal Medicine, [place] [facility] [address] [place] [address] Charles Jarrett MD [address] [place] [address] Medication Refill Allergies Active Allergy Reactions Criticality Noted Date Comments Proparacaine Hcl Other (Please comment) 016 sensitivity per pt- causes itching, irritation to eyelids Aspirin Low 11/09/2012 Nose bleed; CAN tolerate NSAIDs documented as of this encounter (statuses as of 02/05/2024) Medications Medication Sig Dispensed Refills Start Date End Date Status Ascorbic Acid (VITAMIN C) 1000 MG Tablet 1 tablet by mouth twice daily. Active Nystatin (NYSTOP) 514488 UNIT/GM powder Apply topically to affected area [...] as of this encounter (statuses as of 02/05/2024) Active Problems Problem Noted Date Diagnosed Date [...] because he has a neighbor urologist in [place] who recommended against it unless PSA rises [...] as of this encounter (statuses as of 02/05/2024) Resolved Problems Problem Noted Date Diagnosed Date [...] as of this encounter (statuses as of 02/05/2024) Immunizations Name Administration Dates Next Due COVID-19 [...] encounter Miscellaneous Notes * Telephone Encounter - Charles Jarrett MD - 02/05/2024 12:59 PM EDT I have never prescribed Zaleplon for Nelson. I did not see anything on PDMP check as well. * Telephone Encounter - Niru Emmanuel LPN - 02/02/2024 3:55 PM EDT Called and spoke with patient and yes he does take Zaleplon once or twice a week * Telephone Encounter - Nelson Fernando PHARM Tech - 02/02/2024 3:39 PM EDT Pt calling requesting the following medication below that is listed as "Historical". The following information was provided: Medication Name: Zaleplon 10 MG Capsule Directions: 1-2 times a week Preferred Quantity: 90DS Previous Prescriber: Charles Jarrett MD Preferred Pharmacy: [facility][id number] [address] [facility] Please review and approve if appropriate. Thank you, Armand Fernando, Exhibitor Sales Hepatologist 1 Centralized Clinical Pharmacy Services (CCPS) (Formerly Telepharmacy) 02/02/2024,3:39 PM documented in this encounter Plan of Treatment Upcoming Encounters Date Type Department Care Team (Late st Contact Info) Description 02/12/2024 12:30 PM EDT Office Visit [facility] [address] [place], [place] [phone] Janna Ibarra MD [address] [place], [place] [phone] 03/29/2024 2:30 PM EST Office Visit General Surgery, [place] [address] [place] [address], [place] [phone] Cipriano Wyatt DO [address], [place] [id number] 07/06/2024 1:30 PM EDT Office Visit General Internal Medicine [facility] [place] [address] [place] [address] Charles Jarrett MD [address] [place] [address] Health Maintenance Due Date Last [...] 01/02/2024 01/01/2023, 11/12 CKD HGB USE SMARTSET 37653 05/19/202405/19, 05/19/2023, 01/01/2023, Additional history exists CKD PHOS USE SMARTSET 61196 07/20/202411/2023, 07/05/2022, 12/26/2021, Additional history exists Colonoscopy Discontinued 12/15/2013, 06/2010, 11/14/2010, Additional history exists HPV (Gardasil) Vaccine Aged Out No lo nger eligible based on patient's age to complete this topic MENINGOCOCCAL (MENACTRA/MENVEO) Aged Out No longer eligible based on patient's age to complete this topic documented as of this encounter Medical Devices Implanted Type Area Vice President Of Consulting Services Device Identifier Shelf Expiration Date Model / Serial / Lot Graft Hemashld [id number] - [id number] Implanted:Qty : 1 on 12/09/2013 at OR [facility] [place] N/A: Aorta [employer] 10/11/2017 [id number] / / [id number] Drain Glcm Brvldt Tami Imnpl - [id number] - [id number] Implanted:Qty : 1 on 10/19/2020 by Sheryl Narayanan MD at [facility] Left: Eye [employer] OPT[employer] [id number] 04/20/2022 WQ652-179 / [id number] / LOT NA Graft [place] Cornea Split - [id number] - [id number] Implanted:Qty : 1 on 10/19/2020 by Sheryl Narayanan MD at OR [facility] Left: Eye LIONS VISION[employer]IFT 03/13/2022 HCO-HH1 / [id number] / [id number] Drain Glcm Brvldt Tami Imnpl - [id number] - [id number] Implanted:Qty : 1 on 12/03/2021 by Sheryl Narayanan MD at [facility] Left: Eye [facility] : [employer] [id number] 01/11/2023 ZT089-131 / [id number] / LOT NA Graft [place] Cornea Split - [id number] - [id number] Implanted:Qty : 1 on 12/03/2021 by Sheryl Narayanan MD at OR [facility] Left: Eye LIONS VISIONGIFT 09/04/2023 HCO-1 / [id number] / [id number] documented as of this encounter Advance [...] of Attor luis m? No Care Teams Window Assembler Relationship Specialty Start Date End Date Charles Jarrett MD [address] [place] [address] PCP - General Internal Medicine 10/25/19 documented as of this encounter
--- OUTSIDE RECORDS SUMMARY | 2024-04-15 13:23 | External Medical Summary | Summary of Care ---
Author Name Unknown Organization [facility] Address [address] [place] [address] Phone [phone] Care Team Providers Care Restaurant Line Cook Name Role Phone Charles Jarrett MD Primary Care Provider [phone] Reason for Visit * Reason Onset Date Comments Medication Refill 02/02/2024 Encounter Details Date Type Department Care Team (Late st Contact Info) Description 02/02/2024 Telephone General Internal Medicine, [place] [facility] [address] [place] [address] Charles Jarrett MD [address] [place] [address] Medication Refill Allergies Active Allergy [...] by mouth twice daily. Active Nystatin (NYSTOP) 460649 UNIT/GM powder Apply topically to affected area [...] because he has a neighbor urologist in [place] who recommended against it unless PSA rises [...] week * Telephone Encounter - Nelson Fernando, tanker serviceman - 02/02/2024 3:39 PM EDT Pt calling requesting the following medication below that is listed as "Historical". The following information was provided: Medication Name: Zaleplon 10 MG Capsule Directions: 1-2 times a week Preferred Quantity: 90DS Previous Prescriber: Charles Jarrett MD Preferred Pharmacy: E [facility] [id number] Please review and approve if appropriate. Thank you, Armand Fernando, Tooth Cutter Vice President Of Human Resources 1 Centralized Clinical Pharmacy Services (CCPS) (Formerly Telepharmacy) 02/02/2024,3:39 PM documented in this encounter Plan of Treatment Upcoming Encounters Date Type Department Care Team (Late st Contact Info) Description 02/12/2024 12:15 PM EDT Office Visit [facility] [address] [place] [address] Janna Ibarra MD [address] [place] [address] 03/29/2024 2:30 PM EST Office Visit General Surgery, [place] [address] [place], [place] [phone] Cipriano Wyatt DO [address] [place], [place] [address] 07/06/2024 1:30 PM EDT Office Visit General Internal Medicine [address] [place] [address] [place] [address] Charles Jarrett MD [address] [place] [address] Health Maintenance Due Date Last [...] 01/02/2024 01/01/2023, 0812/2021 CKD HGB USE SMARTSET 98391 05/19/202405/19, 05/19/2023, 01/01/2023, Additional history exists CKD PHOS USE SMARTSET 07012 07/20/202411/2023, 07/05/2022, 12/26/2021, Additional history exists Colonoscopy Discontinued 12/15/2013, 06/2010, 11/14/2010, Additional history exists HPV (Gardasil) Vaccine Aged Out No lo nger eligible based on patient's age to complete this topic MENINGOCOCCAL (MENACTRA/MENVEO) Aged Out No longer eligible based on patient's age to complete this topic documented as of this encounter Medical Devices Implanted Type Area Truckload Checker Device Identifier Shelf Expiration Date Model / Serial / Lot Graft Hemashld [id number] - [id number] Implanted:Qty : 1 on 12/09/2013 at OR [facility] [place] [place] N/A: Aorta [employer] 10/11/2017 [id number] / / [id number] Drain Glcm Brvldt Tami Ac Imnpl - [id number] - [id number] Implanted:Qty : 1 on 10/19/2020 by Sheryl Narayanan MD at [facility] Left: Eye [facility] [employer] MED[employer] OPTICS [id number] 04/20/2022 TE699-706 / [id number] / LOT NA Graft [place] Cornea Split - [id number] - [id number] Implanted:Qty : 1 on 10/19/2020 by Sheryl Narayanan MD at [facility] Left: Eye [employer] VISIONGIFT 03/13/2022 HCO-HH1 / [id number] / [id number] Drain Glcm Brvldt Tami Imnpl - [id number] - [id number] Implanted:Qty : 1 on 12/03/2021 by Sheryl Narayanan MD at OR [facility] Left: Eye [facility] [employer] [id number] 01/11/2023 LE388-499 / [id number] / LOT NA Graft [place] Cornea Split - [id number] - [id number] Implanted:Qty : 1 on 12/03/2021 by Sheryl Narayanan MD at OR [facility] Left: Eye LIONS V[employer] 09/04/2023 HCO-HH1 / [id number] / [id number] documented as of this encounter Advance [...] of Attor luis m? No Care Teams Restaurant Line Cook Relationship Specialty Start Date End Date Charles Jarrett MD [address] [place] [address] PCP - General Internal Medicine 10/25/19 documented as of this encounter
--- OUTSIDE RECORDS SUMMARY | 2024-04-15 13:23 | External Medical Summary | Summary of Care ---
Author Name Unknown Organization [facility] Address [address] [place] [address] Phone [phone] Care Team Providers Care Steam Shovel Runner Name Role Phone Charles Jarrett MD Primary Care Provider [phone] Reason for Visit * Reason Onset Date Comments Medication Refill 02/02/2024 Encounter Details Date Type Department Care Team (Late st Contact Info) Description 02/02/2024 Telephone General Internal Medicine, [place] [facility] [address] [place] [address] Charles Jarrett MD [address] [place] [address] Medication Refill Allergies Active Allergy [...] by mouth twice daily. Active Nystatin (NYSTOP) 732740 UNIT/GM powder Apply topically to affected area [...] because he has a neighbor urologist in [place] who recommended against it unless PSA rises [...] encounter Miscellaneous Notes * Telephone Encounter - Nelson Fernando PHARM Tech - 02/02/2024 3:39 PM EDT Pt calling requesting the following medication below that is listed as "Historical". The following information was provided: Medication Name: Zaleplon 10 MG Capsule Directions: 1-2 times a week Preferred Quantity: 90DS Previous Prescriber: Charles Jarrett MD Preferred [facility]acy: [id number] [address] [facility] Please review and approve if appropriate. Thank you, Armand Fernando, Hose Finisher Camp Assistant 1 Centralized Clinical Pharmacy Services (CCPS) (Formerly Telepharmacy) 02/02/2024,3:39 PM documented in this encounter Plan of Treatment Upcoming Encounters Date Type Department Care Team (Late st Contact Info) Description 02/12/2024 12:15 PM EDT Office Visit [facility] [address] [place] [address] Janna Ibarra MD [address] [place] [address] 03/29/2024 2:30 PM EST Office Visit General Surgery, [place] [address] [place] [address] Cipriano Wyatt, [address] [place], [place] [address] 07/06/2024 1:30 PM EDT Office Visit General Internal Medicine [address] [place] [address] [place] [address] Charles Jarrett MD [address] [place], [place] [address] Health Maintenance Due Date Last Done Comments DTap/Tdap Vaccines (1 - Tdap) 1956 Zoster Vaccines (1 of 2) 1987 Adult Wellness Visit 2003 Pneumococcal Vaccine: 65+ Years (2 of 2 - PCV) 03/31/2004 03/31/2003 COVID-19 Vaccine ( - season) 2023 08/03/2020, 07/06/2020 Influenza Vaccine (FLU shot) (#1) 2023 01/01/2023, 01/26/2022, 01/30/2021, Additional history exists Albumin/Creatinine Ratio 01/02/2024 01/01/2023, 11/12 CKD HGB USE SMARTSET 94988 05/19/202405/19, 05/19/2023, 01/01/2023, Additional history exists CKD PHOS USE SMARTSET 42494 07/20/202411/2023, 07/05/2022, 12/26/2021, Additional history exists Colonoscopy Discontinued 12/15/2013, 06/2010, 11/14/2010, Additional history exists HPV (Gardasil) Vaccine Aged Out No lo nger eligible based on patient's age to complete this topic MENINGOCOCCAL (MENACTRA/MENVEO) Aged Out No longer eligible based on patient's age to complete this topic documented as of this encounter Medical Devices Implanted Type Area Leather Fitter Device Identifier Shelf Expiration Date Model / Serial / Lot Graft Hemashld [id number] - [id number] Implanted:Qty : 1 on 12/09/2013 at OR [facility] [place] N/A: Aorta [employer] 10/11/2017 [id number] / / [id number] Drain Glcm Brvldt [facility] - [id number] - [id number] Implanted:Qty : 1 on 10/19/2020 by Sheryl Narayanan MD at [facility] Left: Eye [employer] OPT[employer] [id number] 04/20/2022 JK024-750 / [id number] / LOT NA Graft [place] Cornea Split - [id number] - [id number] Implanted:Qty : 1 on 10/19/2020 by Sheryl Narayanan MD at [facility] Left: Eye LIONS VISION[employer]IFT 03/13/2022 HCO-HH1 / [id number] / [id number] Drain Glcm Brvldt [facility] - [id number] - [id number] Implanted:Qty : 1 on 12/03/2021 by Sheryl Narayanan MD at [facility] Left: Eye [facility] [employer] [employer] OPT[employer] [id number] 01/11/2023 KL708-016 / [id number] / LOT NA Graft [place] Cornea Split - [id number] - [id number] Implanted:Qty : 1 on 12/03/2021 by Sheryl Narayanan MD at [facility] Left: Eye LIONS [employer] 09/04/2023 HCO-HH1 / [id number] / [id number] documented as of this encounter Advance [...] of Attor luis m? No Care Teams Steam Shovel Runner Relationship Specialty Start Date End Date Charles Jarrett MD [address] [place] [address] PCP - General Internal Medicine 10/25/19 documented as of this encounter
--- OUTSIDE RECORDS SUMMARY | 2024-04-15 13:23 | External Medical Summary | Summary of Care ---
Author Name Unknown Organization [facility] Address [address] [place] [address] Phone [phone] Care Team Providers Care District Captain Name Role Phone Charles Jarrett MD Primary Care Provider [phone] Reason for Visit * Reason Comments Other Vision about the shannon e left eye, poor right eye Encounter Details Date Type Department Care Team (Latest Contact Info) Description 02/12/2024 3:00 PM EDT Office Visit [facility] [address] [place], [place] [phone] Niru Eli MD [address] [place], [place] [phone] Exudative age-related macular degeneration of right eye [...] by mouth twice daily. Active Nystatin (NYSTOP) 668561 UNIT/GM powder Apply topically to affected area [...] because he has a neighbor urologist in [place] who recommended against it unless PSA rises [...] CF 20/80 Edited by: Moni Leavitt TECH [facility] [place][NOTE 2] Glaucoma OS AMD OD Family History Problem [...] performed by Sheryl Nar[place]an MD [place] [facility] [place]PLORATION OF ABDOMEN N/A 08/16/2014 EXPLORATORY LAPAROTOMY performed by Argentina Dumont MD at [place] [facility] INJECTION OF EYE DRUG 01/18/13 Lucentis #23 [...] performed by Brian Allen MD at RADIOLOGY [facility] INSERT AQUEOUS SHUNT, EXTERNAL APPROACH Left 10/19/2020 INSERTION AQUEOUS ANTERIOR DRAINAGE DEVICE W/O EXTRAOCULAR RESERVOIR performed by Sheryl Narayanan MD at [facility] IR DRAINAGE ABSCESS/SPECIMEN W CATHETER PLACEMENT 08/31/2014 RADIOLOGICAL GUIDANCE FOR ABSCESS DRAINAGE performed by Yandel Gonzalez MD at [place] [facility] VIVIEN FLEX SIGMOID DIAGNOSITIC 12/15/2013 SIGMOIDOSCOPY FLEXIBLE DIAGNOSTIC performed by Solitario Garcia MD at [place]OSCOPY [facility] LASER TRABECULOPLASTY Bilateral 2014 Ama Ruiz LASER [...] performed by Brian Allen MD at RADIOLOGY [facility] REMOVAL OF SMALL INTESTINE W/FUSION N/A 08/16/2014 ENTERECTOMY SMALL BOWEL RESECTION performed by Argentina Dumont MD at [place] [facility] REPAIR/GRAFT SCLERAL LESION Left 10/19/2020 REPAIR SCLERAL STAPHYLOMA WITH GRAFT performed by Sheryl Narayanan MD at [facility] REPAIR/GRAFT SCLERAL LESION Left 12/03/2021 REPAIR SCLERAL STAPHYLOMA WITH GRAFT performed by Sheryl Narayanan MD at [facility] RUP ANEUR AORTA INVOL RENAL,ME 12/09/2013 REPAIR ANEURYSM ABDOMINAL AORTA VISCERAL RUPTURED performed by Bishop Bianchi MD at [place] [facility] Testing OCT (02/12/2024) R:248 L: X OCT [...] 2:30 PM EST Office Visit General Surgery, [place] [address] [place], [place] [address] Cipriano Wyatt DO [address] [place], [place] [address] 07/06/2024 1:30 PM EDT Office Visit General Internal Medicine [address] [place] [address] Charles Jarrett MD [address] [place] [address] Scheduled Orders Name Type Priority [...] 01/02/2024 01/01/2023, 11/12 CKD HGB USE SMARTSET 74351 05/19/202405/19, 05/19/2023, 01/01/2023, Additional history exists CKD PHOS USE SMARTSET 39149 07/20/2024 040 11/2023, 07/05/2022, 12/26/2021, Additional history exists Colonoscopy Discontinued 12/15/2013, 06/2010, 11/14/2010, Additional history exists HPV (Gardasil) Vaccine Aged Out No lo nger eligible based on patient's age to complete this topic MENINGOCOCCAL (MENACTRA/MENVEO) Aged Out No longer eligible based on patient's age to complete this topic documented as of this encounter Medical Devices Implanted Type Area Tanner Rotary Drum Continuous Process Device Identifier Shelf Expiration Date Model / Serial / Lot Graft Hemashld [id number] - [id number] Implanted:Qty : 1 on 12/09/2013 [place] [facility] N/A: Aorta [employer] 10/11/2017 [id number] / / [id number] Drain [facility] Brv[facility]t [facility] - [id number] - [id number] Implanted:Qty : 1 on 10/19/2020 by Sheryl Narayanan MD at [facility] Left: Eye [employer] [id number] 04/20/2022 JO902-362 / [id number] / LOT NA Graft [place] Cornea Split - [id number] - [id number] Implanted:Qty : 1 on 10/19/2020 by Sheryl Narayanan MD at OR [facility] Left: Eye LIONS VISION[employer]IFT 03/13/2022 HCO-HH1 / [id number] / [id number] Drain Glcm Brvldt Tami Ac Imnpl - [id number] - [id number] Implanted:Qty : 1 on 12/03/2021 by Sheryl Narayanna MD at [facility] Left: Eye [facility] [employer] [id number] 01/11/2023 TR415-400 / [id number] / LOT NA Graft [place] Cornea Split - [id number] - [id number] Implanted:Qty : 1 on 12/03/2021 by Sheryl Narayanan MD at [facility] Left: Eye LIONS V[employer]IFT 09/04/2023 O-1 / [id number] / [id number] documented as of this encounter Visit [...] of Attor luis m? No Care Teams District Captain Relationship Specialty Start Date End Date Charles Jarrett MD [address] [place] [facility] [place] [address] PCP - General Internal Medicine 10/25/19 documented as of this encounter
--- OUTSIDE RECORDS SUMMARY | 2024-04-15 13:23 | External Medical Summary | Summary of Care ---
Author Name Unknown Organization [facility] Address [address] [place] [address] Phone [phone] Care Team Providers Care Equine Manager Name Role Phone Charles Jarrett MD Primary Care Provider [phone] Reason for Visit * Reason Onset Date Comments Medication Refill 02/02/2024 Encounter Details Date Type Department Care Team (Late st Contact Info) Description 02/02/2024 Telephone General Internal Medicine, [place] [facility] [address] [place] [address] Charles Jarrett MD [address] [place] [address] Medication Refill Allergies Active Allergy [...] by mouth twice daily. Active Nystatin (NYSTOP) 401648 UNIT/GM powder Apply topically to affected area [...] because he has a neighbor urologist in [place] who recommended against it unless PSA rises [...] week * Telephone Encounter - [place] Fernando, top distribution executive - 02/02/2024 3:39 PM EDT Pt calling requesting the following medication below that is listed as "Historical". The following information was provided: Medication Name: Zaleplon 10 MG Capsule Directions: 1-2 times a week Preferred Quantity: 90DS Previous Prescriber: Charles Jarrett MD Preferred Pharmacy: E [facility] [id number] Please review and approve if appropriate. Thank you, Armand Fernando, Certified Medical Coder Computer Graphics Illustrator 1 Centralized Clinical Pharmacy Services (CCPS) (Formerly Telepharmacy) 02/02/2024,3:39 PM documented in this encounter Plan of Treatment Upcoming Encounters Date Type Department Care Team (Late st Contact Info) Description 02/12/2024 12:15 PM EDT Office Visit [facility] [address] [place] [address] Janna Ibarra MD [address] [place] [address] 03/29/2024 2:30 PM EST Office Visit General Surgery, [place] [address] [place], [place] [phone] Cipriano Wyatt DO [address] [place], [place] [address] 07/06/2024 1:30 PM EDT Office Visit General Internal Medicine [address] [place] [address] [place] [address] Charles Jarrett MD [address] [place] [address] Health Maintenance Due Date Last [...] 01/02/2024 01/01/2023, 0812/2021 CKD HGB USE SMARTSET 22818 05/19/202405/19, 05/19/2023, 01/01/2023, Additional history exists CKD PHOS USE SMARTSET 89861 07/20/202411/2023, 07/05/2022, 12/26/2021, Additional history exists Colonoscopy Discontinued 12/15/2013, 06/2010, 11/14/2010, Additional history exists HPV (Gardasil) Vaccine Aged Out No lo nger eligible based on patient's age to complete this topic MENINGOCOCCAL (MENACTRA/MENVEO) Aged Out No longer eligible based on patient's age to complete this topic documented as of this encounter Medical Devices Implanted Type Area Roller Mill Tender Device Identifier Shelf Expiration Date Model / Serial / Lot Graft Hemashld [id number] - [id number] Implanted:Qty : 1 on 12[place]09/[place] [facility] [place]A: Aorta W[employer] 10/11/2017 [id number] / / [id number] Drain Glcm Brvldt Tami Ac Imnpl - [id number] - [id number] Implanted:Qty : 1 on 10/19/2020 by Sheryl Narayanan MD at [facility] Left: Eye [employer] [id number] 04/20/2022 OC026-638 / [id number] / LOT NA Graft [place] Cornea Split - [id number] - [id number] Implanted:Qty : 1 on 10/19/2020 by Sheryl Narayanan MD at [facility] Left: Eye [employer]ID[employer]Z VISIONGIFT 03/13/2022 HCO-HH1 / [id number] / [id number] Drain Glcm Brvldt Tami Imnpl - [id number] - [id number] Implanted:Qty : 1 on 12/03/2021 by Sheryl Narayanan MD at [facility] Left: Eye [employer] [id number] 01/11/2023 BU071-158 / [id number] / LOT NA Graft [place] Cornea Split - [id number] - [id number] Implanted:Qty : 1 on 12/03/2021 by Sheryl Narayanan MD at [facility] Left: Eye [employer]IONS [employer] 09/04/2023 HCO-HH1 / [id number] / [id number] documented as of this encounter Advance [...] of Attor luis m? No Care Teams Equine Manager Relationship Specialty Start Date End Date Charles Jarrett MD [address] [place] [address] PCP - General Internal Medicine 10/25/19 documented as of this encounter
--- OUTSIDE RECORDS SUMMARY | 2024-04-15 13:24 | External Medical Summary | Summary of Care ---
Author Name Unknown Organization [facility] Address [address] [place] [address] Phone [phone] Care Team Providers Care Sample Room Supervisor Name Role Phone Charles Jarrett MD Primary Care Provider [phone] Reason for Visit * Reason Onset Date Comments Test Results 01/26/2024 Encounter Details Date Type Department Care Team (Late st Contact Info) Description 01/26/2024 Telephone General Internal Medicine, [facility] [address] [place] [address] Charles Jarrett MD [address] [place] [address] Test Results Allergies Active Allergy Reactions Criticality Noted Date Comments Proparacaine Hcl Other (Please comment) 016 sensitivity per pt- causes itching, irritation to eyelids Aspirin Low 11/09/2012 Nose bleed; CAN tolerate NSAIDs documented as of this encounter (statuses as of 01/26/2024) Medications Medication Sig Dispensed Refills Start Date End Date Status Ascorbic Acid (VITAMIN C) 1000 MG Tablet 1 tablet by mouth twice daily. Active Nystatin (NYSTOP) 712702 UNIT/GM powder Apply topically to affected area [...] as of this encounter (statuses as of 01/26/2024) Active Problems Problem Noted Date Diagnosed Date [...] as of this encounter (statuses as of 01/26/2024) Resolved Problems Problem Noted Date Diagnosed Date [...] as of this encounter (statuses as of 01/26/2024) Immunizations Name Administration Dates Next Due COVID-19 [...] Telephone Encounter - Charles Jarrett MD - 01/26/2024 1:11 PM EDT Called and informed ECHO result. No changes. He verbalized understanding. documented in this encounter Plan of Treatment Upcoming Encounters Date Type Department Care Team (Late st Contact Info) Description 01/30/2024 7:30 AM EDT Hospital Encounter [facility], OPERATING ROOM [facility] [address] [place] [address] Nils Moore MD [address] [place] [address] 01/30/2024 7:30 AM EDT - 01/30/2024 9:34 AM EDT Surgery OR C, OPERATING ROOM [facility] [address] [place] [address] Nils Moore MD [address] [place] [address] REVISION OF COLOSTOMY SIMPLE 02/12/2024 12:15 PM EDT Office Visit [facility] [address] [place] [address] Tevin Ryan, Janna Power MD [address] [place] [address] 02/18/2024 3:30 PM EST Office Visit General Surgery, [place] [address] [place] [address] Edwige Forrest PA-C [address] [place] [address] 03/29/2024 2:30 PM EST Office Visit General Surgery, [place] [address] [place] [address] Cipriano Wyatt DO [address] [place] [address] 07/06/2024 1:30 PM EDT Office Visit General Internal Medicine, [facility] [address], [place] [address] Charles Jarrett MD [address] [place] [address] Scheduled Procedures Name Priority Associated Diagnoses Date/Ti [...] 01/02/2024 01/01/2023, 11/12 CKD HGB USE SMARTSET 84895 05/19/202405/19, 05/19/2023, 01/01/2023, Additional history exists CKD PHOS USE SMARTSET 28546 07/20/202411/2023, 07/05/2022, 12/26/2021, Additional history exists Colonoscopy Discontinued 12/15/2013, 06/2010, 11/14/2010, Additional history exists HPV (Gardasil) Vaccine Aged Out No lo nger eligible based on patient's age to complete this topic MENINGOCOCCAL (MENACTRA/MENVEO) Aged Out No longer eligible based on patient's age to complete this topic documented as of this encounter Medical Devices Implanted Type Area [employer] Device Identifier Shelf Expiration Date Model / Serial / Lot Graft Hemashld [id number] - [id number] Implanted:Qty : 1 on 12/09/2013 at OR [facility] N/A: Aorta Zank 10/11/2017 [id number] / / [id number] Drain Glcm Brvldt Tami Imnp - [id number] - [id number] Implanted:Qty : 1 on 10/19/2020 by Sheryl Narayanan MD at [facility] Left: Eye [employer] [id number] 04/20/2022 [id number] / [id number] / LOT NA Graft [place] Cornea Split - [id number] - [id number] Implanted:Qty : 1 on 10/19/2020 by Sheryl Narayanan MD at OR [facility] Left: Eye [employer]IONS [employer] 03/13/2022 HCO-HH1 / [id number] / [id number] Drain Glcm Brvldt Tami Imnpl - [id number] - [id number] Implanted:Qty : 1 on 12/03/2021 by Sheryl Narayanan MD at OR [facility] Left: Eye [employer] [id number] 01/11/2023 [id number] / [id number] / LOT NA Graft [place] Cornea Split - [id number] - [id number] Implanted:Qty : 1 on 12/03/2021 by Sheryl Narayanan MD at OR [facility] Left: Eye [employer] 09/04/2023 HCO-HH1 / [id number] / [id number] documented as of this encounter Advance [...] of Attor luis m? No Care Teams Sample Room Supervisor Relationship Specialty Start Date End Date Charles Jarrett MD [address] [place] [address] PCP - General Internal Medicine 10/25/19 documented as of this encounter
--- OUTSIDE RECORDS SUMMARY | 2024-04-15 13:24 | External Medical Summary | Summary of Care ---
Author Name Unknown Organization [facility] Address [address] [place] [address] Phone [phone] Care Team Providers Care Police Sergeant Precinct Name Role Phone Charles Jarrett MD Primary Care Provider [phone] Encounter Details Date Type Department Care Team (Late st Contact Info) Description 12/29/2023 Orders Only Outcomes Research Department [address] [place] [address] Stefani Posey CHRA [employer] Research Other*[id number] Allergies Active Allergy Reactions Criticality Noted Date Comments Proparacaine Hcl Other (Please comment) 016 sensitivity per pt- causes itching, irritation to eyelids Aspirin Low 11/09/2012 Nose bleed; CAN tolerate NSAIDs documented as of this encounter (statuses as of 12/29/2023) Medications Medication Sig Dispensed Refills Start Date End Date Status Ascorbic Acid (VITAMIN C) 1000 MG Tablet 1 tablet by mouth twice daily. Active Nystatin (NYSTOP) 941134 UNIT/GM powder Apply topically to affected area [...] as of this encounter (statuses as of 12/29/2023) Active Problems Problem Noted Date Diagnosed Date [...] he has a neighbor urologist in [place] who recommended against it unless PSA [...] as of this encounter (statuses as of 12/29/2023) Resolved Problems Problem Noted Date Diagnosed Date [...] as of this encounter (statuses as of 12/29/2023) Immunizations Name Administration Dates Next Due COVID-19 mRNA, LNP-s, No Pre serve, 2-Dose Series (Moderna) 08/03/2020,07/06/2020 Seasonal Influenza, PF, 6 M & above, IM , (FluLaval or Fluzone) 03/25/2017 Seasonal Influenza, Quadrivalent Hd (Fluzone Hd) 01/01/2023 Seasonal Influenza, Trivalen t, (IIV3), with Preserv, (Fluzone) 01/11/2014,01/22/2007 Seasonal Influenza, Trivalen t, Adjuvanted, 65+ YRS, [...] No 04/23/2021 documented as of this encounter Plan of Treatment Upcoming Encounters Date Type Department Care Team (Late st Contact Info) Description 01/07/2024 1:30 PM EDT Office Visit General Internal Medicine, [facility] [address] [place] [address] Charles Jarrett MD [address] [place] [address] 01/26/2024 8:00 AM EDT Office Visit [facility] Surgery [facility] [address] [place] [address] Ania Schumacher MD [address] [place] [address] 01/30/2024 7:30 AM EDT Hospital Encounter [facility] [address] [place] [address] Nils Moore MD [address] [place] [address] 01/30/2024 7:30 AM EDT - 01/30/2024 9:34 AM EDT Surgery [facility] [address] [place] [address] Nils Moore MD [address] [place] [address] REVISION OF COLOSTOMY SIMPLE 02/18/2024 3:30 PM EST Office Visit General Surgery, [place] [address] [place] [address] Edwige Forrest PA-C [address] [place] [address] 03/29/2024 2:30 PM EST Office Visit General Surgery, [place] [address] [place], [place] [address] Cipriano Wyatt DO [address] [place] [address] 04/30/2024 1:30 PM EST Office Visit Cardiology, [facility] [address] [facility] [place] [address] Mayo Cedillo DO [facility] [place] [address] Scheduled Orders Name Type Priority Associated Diagnoses Orde r Schedule MYCODE SUBSEQUENT ADULT Lab Routine MyCode Research Other*[id number] Every 6 Months for 2 Occurrences starting 12/29/2023 until 01/17/2025 Scheduled Procedures Name Priority Associated Diagnoses Date/Ti [...] 01/02/2024 01/01/2023, 11/12 CKD HGB USE SMARTSET 17960 05/19/202405/19, 05/19/2023, 01/01/2023, Additional history exists CKD PHOS USE SMARTSET 83163 07/20/202411/2023, 07/05/2022, 12/26/2021, Additional history exists Colonoscopy Discontinued 12/15/2013, 06/2010, 11/14/2010, Additional history exists HPV (Gardasil) Vaccine Aged Out No lo nger eligible based on patient's age to complete this topic MENINGOCOCCAL (MENACTRA/MENVEO) Aged Out No longer eligible based on patient's age to complete this topic documented as of this encounter Medical Devices Implanted Type Area Printing Gray Cloth Tender Device Identifier Shelf Expiration Date Model / Serial / Lot Graft Hemashld [id number] - [id number] Implanted:Qty : 1 on 12/09/2013 at [place] [facility] N/A: Aorta [employer] 10/11/2017 [id number] / / [id number] Drain Glcm Brvldt Tami Imnpl - [id number] - [id number] Implanted:Qty : 1 on 10/19/2020 by Sheryl Narayanan MD at [facility] Left: Eye [employer] [id number] 04/20/2022 [id number] / [id number] / LOT NA Graft [place] Cornea Split - [id number] - [id number] Implanted:Qty : 1 on 10/19/2020 by Sheryl Narayanan MD at OR [facility] Left: Eye [employer] 03/13/2022 HCO-HH1 / [id number] / [id number] Drain Glcm Brvldt Tami Imnpl - [id number] - [id number] Implanted:Qty : 1 on 12/03/2021 by Sheryl Narayanan MD at [facility] Left: Eye [employer] [id number] 01/11/2023 [id number] / [id number] / LOT NA Graft [place] Cornea Split - [id number] - [id number] Implanted:Qty : 1 on 12/03/2021 by Sheryl Narayanan MD at OR [facility] Left: Eye LILUIS [employer]ISION[employer] 09/04/2023 HCO-HH1 / [id number] / [id number] documented as of this encounter Visit Diagnoses Diagnosis History of creation of ostomy (HCC)- Primary MyCode Research Other*[id number] History of creation of ostomy (HCC) documented [...] of Attor luis m? No Care Teams Police Sergeant Precinct Relationship Specialty Start Date End Date Charles Jarrett MD [address] [place] [address] PCP - General Internal Medicine 10/25/19 documented as of this encounter
--- OUTSIDE RECORDS SUMMARY | 2024-04-15 13:24 | External Medical Summary | Summary of Care ---
Author Name Unknown Organization [facility] Address [address] [place] [address] Phone [phone] Care Team Providers Care Phlebotomy Instructor Name Role Phone Charles Jarrett MD Primary Care Provider [phone] Reason for Visit * Reason Onset Date Comments Advice 01/15/2024 Encounter Details Date Type Department Care Team (Late st Contact Info) Description 01/15/2024 Telephone General Internal Medicine, [facility] [address] [place] [address] Charles Jarrett MD [address] [place] [address] Advice Allergies Active Allergy Reactions Criticality Noted Date Comments Proparacaine Hcl Other (Please comment) 016 sensitivity per pt- causes itching, irritation to eyelids Aspirin Low 11/09/2012 Nose bleed; CAN tolerate NSAIDs documented as of this encounter (statuses as of 01/15/2024) Medications Medication Sig Dispensed Refills Start Date End Date Status Ascorbic Acid (VITAMIN C) 1000 MG Tablet 1 tablet by mouth twice daily. Active Nystatin (NYSTOP) 873217 UNIT/GM powder Apply topically to affected area [...] as of this encounter (statuses as of 01/15/2024) Active Problems Problem Noted Date Diagnosed Date [...] because he has a neighbor urologist in [place] who recommended against it unless PSA rises [...] as of this encounter (statuses as of 01/15/2024) Resolved Problems Problem Noted Date Diagnosed Date [...] as of this encounter (statuses as of 01/15/2024) Immunizations Name Administration Dates Next Due COVID-19 [...] Telephone Encounter - Charles Jarrett MD - 01/15/2024 1:02 PM EDT Called Nelson. 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 We also briefly discussed management of ascending aneurysm with surgery if it continues to enlarge. Nelson is not sure he wants any kind of surgery. He wants to wait until he gets ECHO to place cardiothoracic surgery referral. He thanked me forthe call. * Telephone Encounter - Dacia Vásquez OSA - 01/15/2024 10:19 AM EDT Received call from patient who is asking for a return call to explain why PCP ordered an Echo. documented in this encounter Plan of Treatment Upcoming Encounters Date Type Department Care Team (Late st Contact Info) Description 01/22/2024 7:15 AM EDT Cardiac Studies Cardiac Studies, [facility] [address] [place] [address] 01/26/2024 8:00 AM EDT Office Visit [facility] [address] [place] [address] Ania Schumacher MD [address] [place] [address] 01/30/2024 7:30 AM EDT Hospital Encounter OR [facility], OPERATING ROOM [facility] [address] [place] [address] Nils Moore MD [address] [place], [place] [address] 01/30/2024 7:30 AM EDT - 01/30/2024 9:34 AM EDT Surgery OR [facility], OPERATING ROOM [facility] [address] [place] [address] Nils Moore MD [address] [place], [place] [address] REVISION OF COLOSTOMY SIMPLE 02/12/2024 12:15 PM EDT Office Visit [facility] [address] [place], [place] [address] Janna Ibarra MD [address] [place], [place] [address] 02/18/2024 3:30 PM EST Office Visit General Surgery, [place] [address] [place], [place] [address] Edwige Forrest PA-C [address] [place], [place] [address] 03/29/2024 2:30 PM EST Office Visit General Surgery, [place] [address] [place], [place] [address] Cipriano Wyatt DO [address] [place] [address] 07/06/2024 1:30 PM EDT Office Visit General Internal Medicine, [facility] [address] [place] [address] Charles Jarrett MD [address] [place] [address] Scheduled Procedures Name Priority Associated Diagnoses Date/Ti [...] 01/02/2024 01/01/2023, 11/12 CKD HGB USE SMARTSET 31721 05/19/202405/19, 05/19/2023, 01/01/2023, Additional history exists CKD PHOS USE SMARTSET 45895 07/20/202411/2023, 07/05/2022, 12/26/2021, Additional history exists Colonoscopy Discontinued 09/03/2023, 06/2013, 11/14/2010, Additional history exists HPV (Gardasil) Vaccine Aged Out No lo nger eligible based on patient's age to complete this topic MENINGOCOCCAL (MENACTRA/MENVEO) Aged Out No longer eligible based on patient's age to complete this topic documented as of this encounter Medical Devices Implanted Type Area Grain Mill Products Inspector Device Identifier Shelf Expiration Date Model / Serial / Lot Graft Jorge Carter18mm [id number] - [id number] Implanted:Qty : 1 on 12/09/2013 at OR [facility] N/A: Aorta LifeWave 10/11/2017 [id number] / / [id number] Drain Glcm Brvldt Tami Imnpl - [id number] - [id number] Implanted:Qty : 1 on 10/19/2020 by Sheryl Narayanan MD at [facility] Left: Eye [employer] [id number] 04/20/2022 [id number] / [id number] / LOT NA Graft [place] Cornea Split - [id number] - [id number] Implanted:Qty : 1 on 10/19/2020 by Sheryl Narayanan MD at OR [facility] Left: Eye [employer]IONS [employer] 03/13/2022 HCO-HH1 / [id number] / [id number] Drain Glcm Brvldt [facility] Imnpl - [id number] - [id number] Implanted:Qty : 1 on 12/03/2021 by Sheryl Narayanan MD at [facility] Left: Eye [employer] [id number] 01/11/2023 [id number] / [id number] / LOT NA Graft [place] Cornea Split - [id number] - [id number] Implanted:Qty : 1 on 12/03/2021 by Sheryl Narayanan MD at OR [facility] Left: Eye [employer] 09/04/2023 HCO-HH1 / [id number] / [id number] documented as of this encounter Advance [...] of Attor luis m? No Care Teams Phlebotomy Instructor Relationship Specialty Start Date End Date Charles Jarrett MD [address] [place] [address] PCP - General Internal Medicine 10/25/19 documented as of this encounter
--- OUTSIDE RECORDS SUMMARY | 2024-04-15 13:24 | External Medical Summary | Summary of Care ---
Author Name Unknown Organization [facility] Address [address] [place] [address] Phone [phone] Care Team Providers Care Vein Access Technician Name Role Phone Charles Jarrett MD Primary Care Provider [phone] Encounter Details Date Type Department Care Team (Latest Contact Info) Description 09/03/2023 7:55 PM EDT - 09/03/2023 11:59 PM EDT Hospital Encounter Radiology [facility] [address] [place] [address] Discharge Disposition: Home - Self Care Allergies Active Allergy Reactions Criticality Noted Date Comments Proparacaine Hcl Other (Please comment) 016 sensitivity per pt- causes itching, irritation to eyelids Aspirin Low 11/09/2012 Nose bleed; CAN tolerate NSAIDs documented as of this encounter (statuses as of 01/17/2024) Medications Medication Sig Dispensed Refills Start Date End Date Status Ascorbic Acid (VITAMIN C) 1000 MG Tablet 1 tablet by mouth twice daily. Active Nystatin (NYSTOP) 006596 UNIT/GM powder Apply topically to affected area [...] before breakfast. 90 Capsule 3 07/01/2023 Active documented as of this encounter (statuses as of 01/17/2024) Active Problems Problem Noted Date Diagnosed Date [...] because he has a neighbor urologist in [place] who recommended against it unless PSA rises [...] as of this encounter (statuses as of 01/17/2024) Resolved Problems Problem Noted Date Diagnosed Date [...] as of this encounter (statuses as of 01/17/2024) Immunizations Name Administration Dates Next Due COVID-19 [...] - 12 Alcohol Use Standard Drinks/Week Comments Yes 5.8 (1 standard drink = 0.6 oz p ure alcohol) 1 martini a day Utilities Answer Date Recorded Do you have [...] (15 years old or older) No 04/23/19 22 Cognitive Status Response Date of Assessm ent Because of a physical, menta l, or emotional condition, do you have serious difficulty concentrating, remembering, or making decisions? (5 years old or older) No 04/23/2021 documented as of this encounter Plan of Treatment Upcoming Encounters Date Type Department Care Team (Late st Contact Info) Description 01/22/2024 7:15 AM EDT Cardiac Studies Cardiac Studies, [facility] [address] [place] [address] 01/26/2024 8:00 AM EDT Office Visit [facility] Surgery [facility] [address] [place] [address] Ania Schumacher MD [address] [place] [address] 01/30/2024 7:30 AM EDT Hospital Encounter OR [facility], OPERATING ROOM [facility] [address] [place] [address] Nils Moore MD [address] [place], [place] [address] 01/30/2024 7:30 AM EDT - 01/30/2024 9:34 AM EDT Surgery OR [facility] [address] [place] [address] Nils Moore MD [address] [place], [place] [address] REVISION OF COLOSTOMY SIMPLE 02/12/2024 12:15 PM EDT Office Visit [address] [address] Janna Ibarra MD [address] [place] [address] 02/18/2024 3:30 PM EST Office Visit General Surgery, [place] [address] [place] [address] Edwige Forrest PA-C [address] [place] [address] 03/29/2024 2:30 PM EST Office Visit General Surgery, [place] [address] [place] [address] Cipriano Wyatt DO [address] [place] [address] 07/06/2024 1:30 PM EDT Office Visit General Internal Medicine, [facility] [address] [place] [address] Charles Jarrett MD [address] [place] [address] Scheduled Procedures Name Priority Associated Diagnoses Date/Ti [...] 01/02/2024 01/01/2023, 11/12 CKD HGB USE SMARTSET 64334 05/19/202405/19, 05/19/2023, 01/01/2023, Additional history exists CKD PHOS USE SMARTSET 80827 07/20/20240 11/2023, 07/05/2022, 12/26/2021, Additional history exists Colonoscopy Discontinued 09/03/2023, 06/2013, 11/14/2010, Additional history exists HPV (Gardasil) Vaccine Aged Out No lo nger eligible based on patient's age to complete this topic MENINGOCOCCAL (MENACTRA/MENVEO) Aged Out No longer eligible based on patient's age to complete this topic documented as of this encounter Medical Devices Implanted Type Area Dance Hall Host/Hostess Device Identifier Shelf Expiration Date Model / Serial / Lot Graft Blankld [id number] - [id number] Implanted:Qty : 1 on 12/09/2013 at OR [facility] N/A: Aorta [employer] 10/11/2017 [id number] / / [id number] Drain Glcm Brvldt [facility] Imnp - [id number] - [id number] Implanted:Qty : 1 on 10/19/2020 by Sheryl Narayanan MD at [facility] Left: Eye [employer] [id number] 04/20/2022 [id number] / [id number] / LOT NA Graft [place] Cornea Split - [id number] - [id number] Implanted:Qty : 1 on 10/19/2020 by Sheryl Narayanan MD at OR [facility] Left: Eye [employer] VISION[employer]IFT 03/13/2022 HCO-HH1 / [id number] / [id number] Drain Glcm Br[facility]ldt [facility] - [id number] - [id number] Implanted:Qty : 1 on 12/03/2021 by Sheryl Narayanan MD at [facility] Left: Eye [employer] [id number] 01/11/2023 [id number] / [id number] / LOT NA Graft [place] Cornea Split - [id number] - [id number] Implanted:Qty : 1 on 12/03/2021 by Sheryl Narayanan MD at [facility] Left: Eye [employer] VISIONGIFT 09/04/2023 O-HH1 / [id number] / [id number] documented as of this encounter Procedures Procedure Name Priority Date/Time Associated Diagnosis Comments RADIOLOGY EXAM - CT (IMAGES ONLY, NO REPORT) Routine 09/03/2023 7:55 PM EDT documented in this encounter Results * RADIOLOGY EXAM - CT (IMAGES ONLY, NO REPORT) (09/03/2023 7:55 PM EDT) 09/03/2023 7:55 PM EDT Narrative Scheduling, Silent - 01/16/2024 9:30 AM EDT This is an imaging study not interpreted or resulted by a [facility] or [facility] contracted radiologist. Charles Jarrett MD RAD CT documented in this encounter Advance Directives * [...] of Attor luis m? No Care Teams Vein Access Technician Relationship Specialty Start Date End Date Charles Jarrett MD [address] [place] [address] PCP - General Internal Medicine 10/25/19 documented as of this encounter
--- OUTSIDE RECORDS SUMMARY | 2024-04-15 13:24 | External Medical Summary | Summary of Care ---
Author Name Unknown Organization [facility] Address [address] [place] [address] Phone [phone] Care Team Providers Care Control Systems Eng Name Role Phone Charles Jarrett MD Primary Care Provider Encounter Details Date Type Department Care Team (Latest Contact Info) Description 09/02/2023 9:30 PM EDT - 09/02/2023 11:59 PM EDT Hospital Encounter Radiology Film File [address] [place] [address] Discharge Disposition: Home - Self [...] by mouth twice daily. Active Nystatin (NYSTOP) 043554 UNIT/GM powder Apply topically to affected area [...] because he has a neighbor urologist in [place] who recommended against it unless PSA rises [...] 7:15 AM EDT Cardiac Studies Cardiac Studies, [facility] [address] [place] [address] 01/26/2024 8:00 AM EDT Office Visit [facility] Surgery [facility] [address] [place] [address] Ania Schumacher MD [address] [place] [address] 01/30/2024 7:30 AM EDT Hospital Encounter [place] [facility], OPER[facility]OM [facility] [address] [place] [address] Nils Moore MD [address], [place] [phone] 01/30/2024 7:30 AM EDT - 01/30/2024 9:34 AM EDT Surgery [facility] [address] [place] [address] Nils Moore MD [address], [place] [phone] REVISION OF COLOSTOMY SIMPLE 02/12/2024 12:15 PM EDT Office Visit [address] [address] Janna Ibarra MD [address] [place] [address] 02/18/2024 3:30 PM EST Office Visit General Surgery, [place] [address] [place] [address] Edwige Forrest PA-C [address] [place] [address] 03/29/2024 2:30 PM EST Office Visit General Surgery, [place] [address] [place] [address] Ciprinao Wyatt DO [address] [place] [address] 07/06/2024 1:30 PM EDT Office Visit General Internal Medicine, [facility] [address] [place] [address] Charles Jarrett MD [address] [place] [address] Scheduled Procedures Name Priority Associated Diagnoses Date/Ti [...] 01/02/2024 01/01/2023, 11/12 CKD HGB USE SMARTSET 24026 05/19/202405/19, 05/19/2023, 01/01/2023, Additional history exists CKD PHOS USE SMARTSET 99353 07/20/20240 11/2023, 07/05/2022, 12/26/2021, Additional history exists Colonoscopy Discontinued 09/03/2023, 06/2013, 11/14/2010, Additional history exists HPV (Gardasil) Vaccine Aged Out No lo nger eligible based on patient's age to complete this topic MENINGOCOCCAL (MENACTRA/MENVEO) Aged Out No longer eligible based on patient's age to complete this topic documented as of this encounter Medical Devices Implanted Type Area Clinical Business Analyst Device Identifier Shelf Expiration Date Model / Serial / Lot Graft Blankld [id number] - [id number] Implanted:Qty : 1 on 12/09/2013 at OR [facility] N/A: Aorta KwiClick 10/11/2017 [id number] / / [id number] Drain Glcm Brvldt [facility] Imnp - [id number] - [id number] Implanted:Qty : 1 on 10/19/2020 by Sheryl Narayanan MD at [facility] Left: Eye [employer] [id number] 04/20/2022 [id number] / [id number] / LOT NA Graft [place] Cornea Split - [id number] - [id number] Implanted:Qty : 1 on 10/19/2020 by Sheryl Narayanan MD at [facility] Left: Eye [employer] VISIONGIFT 03/13/2022 HCO-HH1 / [id number] / [id number] Drain Glcm Br[facility]t [facility] - [id number] - [id number] Implanted:Qty : 1 on 12/03/2021 by Sheryl Narayanan MD at [facility] Left: Eye [employer] [id number] 01/11/2023 TY777-832 / [id number] / LOT NA Graft [place] Cornea Split - [id number] - [id number] Implanted:Qty : 1 on 12/03/2021 by Sheryl Narayanan MD at [facility] Left: Eye [employer] VISIONGIFT 09/04/2023 [facility] / [id number] / [id number] documented as of this encounter Procedures Procedure Name Priority Date/Time Associated Diagnosis Comments RADIOLOGY EXAM - CT (IMAGES ONLY, NO REPORT) Routine 09/02/2023 9:30 PM EDT documented in this encounter Results * RADIOLOGY EXAM - CT (IMAGES ONLY, NO REPORT) (09/02/2023 9:30 PM EDT) 09/02/2023 9:28 PM EDT Narrative Scheduling, Silent - 01/16/2024 9:44 AM EDT This is an imaging study not interpreted or resulted by [facility] contracted radiologist. Charles Jarrett MD RAD CT [...] of Attor luis m? No Care Teams Control Systems Eng Relationship Specialty Start Date End Date Charles Jarrett MD [address] [place] [address] PCP - General Internal Medicine 10/25/19 documented as of this encounter
--- OUTSIDE RECORDS SUMMARY | 2024-04-15 13:24 | External Medical Summary | Summary of Care ---
Author Name Unknown Organization [facility] Address [address] [place] [address] Phone [phone] Care Team Providers Care Driver Salesman Name Role Phone Charles Jarrett MD Primary Care Provider [phone] Encounter Details Date Type Department Care Team (Late st Contact Info) Description 09/03/2023 Orders Only General Internal Medicine, [facility] [address] [place] [address] Charles Jarrett MD [address] [place] [address] Allergies Active Allergy Reactions Criticality Noted Date Comments Proparacaine Hcl Other (Please comment) 016 sensitivity per pt- causes itching, irritation to eyelids Aspirin Low 11/09/2012 Nose bleed; CAN tolerate NSAIDs documented as of this encounter (statuses as of 01/16/2024) Medications Medication Sig Dispensed Refills Start Date End Date Status Ascorbic Acid (VITAMIN C) 1000 MG Tablet 1 tablet by mouth twice daily. Active Nystatin (NYSTOP) 583260 UNIT/GM powder Apply topically to affected area [...] as of this encounter (statuses as of 01/16/2024) Active Problems Problem Noted Date Diagnosed Date [...] as of this encounter (statuses as of 01/16/2024) Resolved Problems Problem Noted Date Diagnosed Date [...] as of this encounter (statuses as of 01/16/2024) Immunizations Name Administration Dates Next Due COVID-19 [...] = 0.6 oz p ure alcohol) 1 a Utilities Answer Date Recorded Do you have [...] 7:15 AM EDT Cardiac Studies Cardiac Studies, [facility] [address] [place] [address] 01/26/2024 8:00 AM EDT Office Visit [facility] [address] [place] [address] Ania Schumacher MD [address] [place] [address] 01/30/2024 7:30 AM EDT Hospital Encounter OR [facility], OPERATING ROOM [facility] [address] [place] [address] Nils Moore MD [address] [place] [address] 01/30/2024 7:30 AM EDT - 01/30/2024 9:34 AM EDT Surgery OR [facility], OPERATING ROOM [facility] [address] [place] [address] Nils Moore MD [address], [place] [phone] REVISION OF COLOSTOMY SIMPLE 02/12/2024 12:15 PM EDT Office Visit [facility] Eye [facility] [address] [place] [address] Janna Ibarra MD [address] [place] [address] 02/18/2024 3:30 PM EST Office Visit General Surgery, [place] [address] [place] [address] Edwige Forrest PA-C [address] [place] [address] 03/29/2024 2:30 PM EST Office Visit General Surgery, [place] [address] [place] [address] Cipriano Wyatt DO [address] [place] [address] 07/06/2024 1:30 PM EDT Office Visit General Internal Medicine, [facility] [address] [place], [place] [phone] Charles Jarrett MD [address] [place] [address] Scheduled Procedures Name Priority Associated Diagnoses Date/Ti [...] 01/02/2024 01/01/2023, 11/12 CKD HGB USE SMARTSET 88313 05/19/202405/19, 05/19/2023, 01/01/2023, Additional history exists CKD PHOS USE SMARTSET 14756 07/20/202411/2023, 07/05/2022, 12/26/2021, Additional history exists Colonoscopy Discontinued 09/03/2023, 06/2013, 11/14/2010, Additional history exists HPV (Gardasil) Vaccine Aged Out No lo nger eligible based on patient's age to complete this topic MENINGOCOCCAL (MENACTRA/MENVEO) Aged Out No longer eligible based on patient's age to complete this topic documented as of this encounter Medical Devices Implanted Type Area Watch Repair Technician Device Identifier Shelf Expiration Date Model / Serial / Lot Graft Hemashld [id number] - [id number] Implanted:Qty : 1 on 12/09/[address] [facility] N/A: Aorta HELIX BIOMEDIX 10/11/2017 [id number] / / [id number] Drain Glcm Brvldt [employer] Imnpl - [id number] - [id number] Implanted:Qty : 1 on 10/19/2020 by Sheryl Narayanan MD at [facility] Left: Eye [employer] [id number] 04/20/2022 PN434-486 / [id number] / LOT NA Graft [place] Cornea Split - [id number] - [id number] Implanted:Qty : 1 on 10/19/2020 by Sheryl Narayanan MD at [facility] Left: Eye L[employer] V[employer]IFT 03/13/2022 HCO-HH1 / [id number] / [id number] Drain Glcm Brvldt [employer]npl - [id number] - [id number] Implanted:Qty : 1 on 12/03/2021 by Sheryl Narayanan MD at [facility] Left: Eye [employer] [id number] 01/11/2023 EV490-249 / [id number] / LOT NA Graft [place] Cornea Split - [id number] - [id number] Implanted:Qty : 1 on 12/03/2021 by Sheryl Narayanan MD at [facility] Left: Tucker BAPTISTE VISIONGIFT 09/04/2023 [facility] / [id number] / [id number] documented as of this encounter Procedures [...] study not interpreted or resulted by a [facility] or [facility] contracted radiologist. Charles Jarrett MD RAD CT [...] of Attor luis m? No Care Teams Driver Salesman Relationship Specialty Start Date End Date [facility] [address] [facility] [address] PCP - General Internal Medicine 10/25/19 documented as of this encounter
--- OUTSIDE RECORDS SUMMARY | 2024-04-15 13:24 | External Medical Summary | Summary of Care ---
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 Active Nystatin (NYSTOP) 133227 UNIT/GM powder Apply topically to affected area [...] tip 1000 mg OR ONCE 01/26/2024 01/27/2024 Active documented as of this encounter (statuses [...] because he has a neighbor urologist in [place] who recommended against it unless PSA rises [...] MD - 01/26/2024 8:15 AM EDT [facility] Surgery Note (See separate transcribed operative note [...] AM EDT Chief Complaint Patient presents with [facility] Surgery Nose Referral Doctor: Alyssa Hypertension History: [...] 01/30/2024 7:30 AM EDT Hospital Encounter [place] [facility] [facility] [facility] [address] [place] [address] Nils Moore MD [address] [place], [place] [address] 01/30/2024 7:30 AM EDT - 01/30/2024 9:34 AM EDT Surgery [place] [facility] [facility] [facility] [address] [place] [address] Nils Moore MD [address] [place] [address] REVISION OF COLOSTOMY SIMPLE 02/12/2024 12:15 PM EDT Office Visit [address] [address] Janna Ibarra MD [address] [place] [address] 02/18/2024 3:30 PM EST Office Visit General Surgery, [place] [address] [place] [address] Edwige Forrest PA-C [address] [place], [place] [address] 03/29/2024 2:30 PM EST Office Visit General Surgery, [place] [address] [place] [address] Cipriano Wyatt DO [address] [place] [address] 07/06/2024 1:30 PM EDT Office Visit General Internal Medicine, [facility] [address] [place] [address] Charles Jarrett MD [address] [place], [place] [address] Scheduled Procedures Name Priority Associated Diagnoses Date/Ti [...] 01/02/2024 01/01/2023, 11/12 CKD HGB USE SMARTSET 09148 05/19/202405/19, 05/19/2023, 01/01/2023, Additional history exists CKD PHOS USE SMARTSET 50109 07/20/2024 0411/2023, 07/05/2022, 12/26/2021, Additional history exists Colonoscopy Discontinued 12/15/2013, 06/2010, 11/14/2010, Additional history exists HPV (Gardasil) Vaccine Aged Out No lo nger eligible based on patient's age to complete this topic MENINGOCOCCAL (MENACTRA/MENVEO) Aged Out No longer eligible based on patient's age to complete this topic documented as of this encounter Medical Devices Implanted Type Area Tombstone Polisher Device Identifier Shelf Expiration Date Model / Serial / Lot Graft Jorge Griderit18mm [id number] - [id number] Implanted:Qty : 1 on 12/09/2013 at [place] [facility] N/A: Aorta Tianji 10/11/2017 [id number] / / [id number] Drain Glcm Brvldt Tami Ac Imnpl - [id number] - [id number] Implanted:Qty : 1 on 10/19/2020 by Sheryl Narayanan MD at [facility] Left: Eye [employer] [id number] 04/20/2022 TV460-278 / [id number] / LOT NA Graft [place] Cornea Split - [id number] - [id number] Implanted:Qty : 1 on 10/19/2020 by Sheryl Narayanan MD at [facility] Left: Eye L[employer] VISIONGIFT 03/13/2022 HCO-HH1 / [id number] / [id number] Drain Glcm Brvldt [facility] Imnpl - [id number] - [id number] Implanted:Qty : 1 on 12/03/2021 by Sheryl Narayanan MD at [facility] Left: Eye [employer] [id number] 01/11/2023 CA050-249 / [id number] / LOT NA Graft [place] Cornea Split - [id number] - [id number] Implanted:Qty : 1 on 12/03/2021 by Sheryl Narayanan MD at [facility] Left: Eye [employer] VISION[employer]IFT 09/04/2023 HCO-1 / [id number] / [id number] documented as of this encounter Visit [...] of Attor luis m? No Care Teams Cloud Architect Relationship Specialty Start Date End Date Charles Jarrett MD [address] [place] [address] PCP - General Internal Medicine 10/25/19 documented as of this encounter
--- OUTSIDE RECORDS SUMMARY | 2024-04-15 13:24 | External Medical Summary | Summary of Care ---
Author Name Unknown Organization [facility] Address [address] [place] [address] Phone [phone] Care Team Providers Care Field Service Tech Name Role Phone Charles Jarrett MD Primary Care Provider [phone] Encounter Details Date Type Department Care Team (Late st Contact Info) Description 08/08/2023 Telephone [facility] [address] [place] [address] Tevin Ryan, Janna Power MD [address] [place] [address] Allergies Active Allergy Reactions Criticality Noted Date Comments Proparacaine Hcl Other (Please comment) 016 sensitivity per pt- causes itching, irritation to eyelids Aspirin Low 11/09/2012 Nose bleed; CAN tolerate NSAIDs documented as of this encounter (statuses as of 01/02/2024) Medications Medication Sig Dispensed Refills Start Date End Date Status Ascorbic Acid (VITAMIN C) 1000 MG Tablet 1 tablet by mouth twice daily. 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 90 Capsule 3 07/01/2023 Active dilTIAZem HCl ER Coated Beads 180 MG Oral Capsule Extended Release 24 Hour (Cardizem CD) One tablet each evening 90 Capsule 3 10/07/2022 10/15/19 Discontinued documented as of this encounter (statuses as of 01/02/2024) Active Problems Problem Noted Date Diagnosed Date [...] as of this encounter (statuses as of 01/02/2024) Resolved Problems Problem Noted Date Diagnosed Date [...] as of this encounter (statuses as of 01/02/2024) Immunizations Name Administration Dates Next Due COVID-19 mRNA, LNP-s, No Pre serve, 2-Dose Series (Moderna) 08/03/2020,07/06/2020 Pneumococcal Polysaccharide PPV23 (Pneumovax) 03/31/2003 Seasonal Influenza, PF, 6 M & above, IM , (FluLaval or Fluzone) 03/25/2017 Seasonal Influenza, Quadriva lent Hd (Fluzone Hd) 01/01/2023 Seasonal Influenza, Trivalen t, (IIV3), with Preserv, (Fluzone) 01/11/2014,01/22/2007,03/31/2003 Seasonal Influenza, Trivalen t, Adjuvanted, 65+ YRS, [...] encounter Miscellaneous Notes * Telephone Encounter - Irene Abreu [facility] - 01/02/2024 2:57 PM EDT Pt scheduled and aware. * Telephone Encounter - Thu Sanford [facility] - 08/08/2023 11:34 AM EDT Return in about 6 months (around 02/07/2024) for IOP check. Could someone help me schedule this. 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 Thank you, Thu documented in this encounter Plan of Treatment Upcoming Encounters Date Type Department Care Team (Late st Contact Info) Description 01/07/2024 1:30 PM EDT [facility] [address] [place] [address] Charles Jarrett MD [address] [place] [address] 01/26/2024 8:00 AM EDT Office Visit [facility] Surgery [facility] [address] [place] [address] Ania Schumacher MD [address] [place] [address] 01/30/2024 7:30 AM EDT Hospital Encounter OR [facility], OPERATING ROOM [facility] [address] [place] [phone] Nils Moore MD [address] [place], [place] [address] 01/30/2024 7:30 AM EDT - 01/30/2024 9:34 AM EDT Surgery OR [facility], OPERATING ROOM [facility] [address] [place] [phone] Nils Moore MD [address] [place] [address] REVISION OF COLOSTOMY SIMPLE 02/12/2024 12:15 PM EDT Office Visit [facility] [address] [place], [place] [phone] Janna Ibarra MD [address] [place] [address] 02/18/2024 3:30 PM EST Office Visit General Surgery, [place] [address] [place] [address] Edwige Forrest PA-C [address] [place], [place] [address] 03/29/2024 2:30 PM EST Office Visit General Surgery, [place] [address] [place], [place] [phone] Cipriano Wyatt DO [address] [place] [address] Scheduled Procedures Name Priority Associated Diagnoses Date/Ti [...] 01/02/2024 01/01/2023, 11/12 CKD HGB USE SMARTSET 18295 05/19/202405/19, 05/19/2023, 01/01/2023, Additional history exists CKD PHOS USE SMARTSET 36924 07/20/202411/2023, 07/05/2022, 12/26/2021, Additional history exists Colonoscopy Discontinued 09/03/2023, 06/2013, 11/14/2010, Additional history exists HPV (Gardasil) Vaccine Aged Out No lo nger eligible based on patient's age to complete this topic MENINGOCOCCAL (MENACTRA/MENVEO) Aged Out No longer eligible based on patient's age to complete this topic documented as of this encounter Medical Devices Implanted Type Area Configuration Management Administrator Device Identifier Shelf Expiration Date Model / Serial / Lot Graft Hemashld [id number] - [id number] Implanted:Qty : 1 on 12/09/2013 at OR [facility] N/A: Aorta Xanitos 10/11/2017 [id number] / / [id number] Drain Glcm Brvldt [facility] Iml - [id number] - [id number] Implanted:Qty : 1 on 10/19/2020 by Sheryl Narayanan MD at [facility] Left: Eye [employer] [id number] 04/20/2022 EX935-596 / [id number] / LOT NA Graft [place] Cornea Split - [id number] - [id number] Implanted:Qty : 1 on 10/19/2020 by Sheryl Narayanan MD at [facility] Left: Eye [employer] V[employer] 03/13/2022 HCO-HH1 / [id number] / [id number] Drain Glcm Brvldt T[employer] Imnpl - [id number] - [id number] Implanted:Qty : 1 on 12/03/2021 by Sheryl Narayanan MD at [facility] Left: Eye [employer] [id number] 01/11/2023 CA296-458 / [id number] / LOT NA Graft [place] Cornea Split - [id number] - [id number] Implanted:Qty : 1 on 12/03/2021 by Sheryl Narayanan MD at [facility] Left: Eye [employer] 09/04/2023 HCO-HH1 / [id number] / [id number] documented as of this encounter Advance [...] of Attor luis m? No Care Teams Field Service Tech Relationship Specialty Start Date End Date Charles Jarrett MD [address] [place] [address] PCP - General Internal Medicine 10/25/19 documented as of this encounter
--- OUTSIDE RECORDS SUMMARY | 2024-04-15 13:24 | External Medical Summary | Summary of Care ---
Author Name Unknown Organization [facility] Address [address] [place] [address] Phone [phone] Care Team Providers Care Intake Worker Name Role Phone Charles Jarrett MD Primary Care Provider [phone] Encounter Details Date Type Department Care Team (Late st Contact Info) Description 09/02/2023 Orders Only General Internal Medicine, [facility] [address] [place] [address] Charles Jarrett MD [address] [place] [address] Allergies Active Allergy Reactions Criticality [...] by mouth twice daily. Active Nystatin (NYSTOP) 327009 UNIT/GM powder Apply topically to affected area [...] 7:15 AM EDT Cardiac Studies Cardiac Studies, [facility] [address] [place] [address] 01/26/2024 8:00 AM EDT Office Visit [facility] Surgery [facility] [address] [place] [address] Ania Schumacher MD [address] [place] [address] 01/30/2024 7:30 AM EDT Hospital Encounter [place] [facility] [address] [place] [address] Nils Moore MD [address] [place] [address] 01/30/2024 7:30 AM EDT - 01/30/2024 9:34 AM EDT Surgery OR [facility]PER[facility] ROOM [facility] [address] [place] [address] Nils Moore MD [address] [place], [place] [id number] REVISION OF COLOSTOMY SIMPLE 02/12/2024 12:15 PM EDT Office Visit [facility] [address] [place] [address] Janna Ibarra MD [address] [place] [address] 02/18/2024 3:30 PM EST Office Visit General Surgery, [place] [address] [place] [address] Edwige Forrest PA-C [address] [place] [address] 03/29/2024 2:30 PM EST Office Visit General Surgery, [place] [address] [place] [address] Cipriano Wyatt DO [address] [place] [address] 07/06/2024 1:30 PM EDT Office Visit General Internal Medicine, [facility] [address], [place] [id number] Charles Jarrett MD [address] [place] [address] Scheduled Procedures Name Priority Associated Diagnoses Date/Ti [...] 01/02/2024 01/01/2023, 11/12 CKD HGB USE SMARTSET 82603 05/19/202405/19, 05/19/2023, 01/01/2023, Additional history exists CKD PHOS USE SMARTSET 17126 07/20/202411/2023, 07/05/2022, 12/26/2021, Additional history exists Colonoscopy Discontinued 09/03/2023, 06/2013, 11/14/2010, Additional history exists HPV (Gardasil) Vaccine Aged Out No lo nger eligible based on patient's age to complete this topic MENINGOCOCCAL (MENACTRA/MENVEO) Aged Out No longer eligible based on patient's age to complete this topic documented as of this encounter Medical Devices Implanted Type Area Tool Chaser Device Identifier Shelf Expiration Date Model / Serial / Lot Graft Hemashld [id number] - [id number] Implanted:Qty : 1 on 12/09/2013 at OR [facility] N/A: Aorta [employer] 10/11/2017 [id number] / / [id number] Drain Glcm Brvldt Tami Ac Imnpl - [id number] - [id number] Implanted:Qty : 1 on 10/19/2020 by Sheryl Narayanan MD at [facility] Left: Eye [employer] : [employer] [id number] 04/20/2022 [id number] / [id number] / LOT NA Graft [place] Cornea Split - [id number] - [id number] Implanted:Qty : 1 on 10/19/2020 by Sheryl Narayanan MD at OR [facility] Left: Eye [employer] 03/13/2022 HCO-HH1 / [id number] / [id number] Drain Glcm Brvldt Tami Ac Imnpl - [id number] - [id number] Implanted:Qty : 1 on 12/03/2021 by Sheryl Narayanan MD at OR [facility] Left: Eye [employer] : [employer] [id number] 01/11/2023 [id number] / [id number] / LOT NA Graft [place] Cornea Split - [id number] - [id number] Implanted:Qty : 1 on 12/03/2021 by Sheryl Narayanan MD at OR [facility] Left: Tucker [employer] 09/04/2023 [facility] / [id number] / [id number] documented as of this encounter Procedures [...] study not interpreted or resulted by a [facility] or [facility] contracted radiologist. Charles Jarrett MD [...] of Attor luis m? No Care Teams Intake Worker Relationship Specialty Start Date End Date [facility] Jarrett [facility] [address] [facility] [address] P[facility] - General Internal Medicine 10/25/19 documented as of this encounter
--- OUTSIDE RECORDS SUMMARY | 2024-04-15 13:24 | External Medical Summary | Summary of Care ---
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) Procedures ECHO, COMPLETE (2D), TRANS-THORACIC Charles Jarrett MD [address] [place] [address] Referral ID Status Reason Start Date Expiration Date V isits Requested Visits Authorized [id number] Authorized Precert 01/07/2024 999 999 Reason for Visit * Reason Comments Status Check Encounter Details Date Type Department Care Team (Late st Contact Info) Description 01/07/2024 1:30 PM EDT Office Visit General Internal Medicine, [facility] [address] [place] [address] Charles Jarrett MD [address] [place] [address] Essential hypertension with goal blood pressure less than 140/90*; Chronic kidney disease, stage 3a (HCC); 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 Active Nystatin (NYSTOP) 603213 UNIT/GM powder Apply topically to affected area [...] as of this encounter (statuses as of 01/07/2024) Active Problems Problem Noted Date Diagnosed Date [...] as of this encounter (statuses as of 01/07/2024) Resolved Problems Problem Noted Date Diagnosed Date [...] as of this encounter (statuses as of 01/07/2024) Immunizations Name Administration Dates Next Due COVID-19 [...] Sign Reading Time Taken Comments Blood Pressure 158/82 01/07/2024 1:09 PM EDT Pulse 82 01/07/2024 1:09 PM EDT Temperature 37.2 C (98.9 F) 01/07/2024 1:09 PM ED T Respiratory Rate - - Oxygen Saturation 94% 01/07/2024 1:09 PM EDT room air Inhaled Oxygen Concentration - - Weight 84.7 kg (186 lb 12.8 oz) 01/07/2024 1:09 PM EDT Height - - Body Mass Index 29.26 09/18/2023 1:20 PM EDT documented in this encounter Functional Status Functional Status Response [...] as of this encounter Progress Notes * Charles Jarrett MD - 01/07/2024 1:06 PM EDT Subjective Chuy Tillman is a 88 year old male. Chief Complaint Patient presents with Status Check HPI: Mr. Tillman returns for follow up of hypertension, CKD, depression and general health check up. Heis accompanied by his Nely. Nelson reports improvement in hoarseness and post nasal drip with Claritin. Wonders if he can take it twice a day. No bleeding from ostomy. No abdominal pain. Walks with a cane. No falls. Reports intermittent low back pain. States he does not want any major procedures done. Does not want repeat colonoscopy either. Preferscomfort care if situation arises. Seen by ENT in the interim for hoarseness. No concerns. Seen by general surgery for parastomal hernia. NO surgery recommended. Got blood pressure monitor with no significant high BP numbers. 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 The biopsy was benign (ulcerated granulation tissue and inflamed adenoma). Per patient, he got blood transfusion and iron infusion while in the hospital. " Seen by Dr. Wyatt who recommended no intervention for ulceration at ileocecal valve. Seen by dermatology. Notes reviewed. 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) Elevated prostate specific antigen (PSA) Neuropathy History of dissecting abdominal aortic aneurysm (AAA) repair Atherosclerosis of aorta (HCC) Chronic kidney disease, stage 3a (HCC) Primary open angle glaucoma (POAG) of left eye, 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 Nystatin (NYSTOP) 587081 UNIT/GM powder Apply topically to affected area as needed . traZODone (DESYREL) 50 MG Tablet 1 to [...] MOUTH IN THE EVENING 90 Capsule 3 fluorouracil (EFUDEX) 5 % cream apply to affected area on forehead twice daily x 3 weeks. (Patient not taking: Reported on 09/18/2023) 40 g 5 No current facility-administered medications for this visit. Review of patient's allergies indicates: Allergen Reactions Alcaine [Proparacaine Hcl] Other (Please comment) sensitivity per pt- causes itching, irritation to eyelids Aspirin Nose bleed; CAN tolerate NSAIDs Review of Systems Constitutional: Negative for chills, diaphoresis and fever. HENT: Negative for congestion. Respiratory: Negative for cough, chest tightness and shortness of breath. Cardiovascular: Negative for chest pain, palpitations and leg swelling. Gastrointestinal: Negative for abdominal pain, blood in stool and nausea. Genitourinary: Negative for dysuria and hematuria. Skin: Negative for rash. Neurological: Negative for dizziness, seizures, syncope, light-headedness, numbness and headaches. Objective BP 158/82 | Pulse 82 | Temp 37.2 C (98.9 F) (Oral) | Wt 84.7 kg (186 lb 12.8 oz) | SpO2 94% Comment: room air | BMI 29.26 kg/m | BSA 2 m Physical Exam Constitutional: General: He is not in acute distress. Appearance: Normal appearance. He is not ill-appearing, toxic-appearing or diaphoretic. HENT: Head: Normocephalic and atraumatic. Cardiovascular: Rate and Rhythm: Normal rate and regular rhythm. Heart sounds: Normal heart sounds. No murmur heard. No gallop. Pulmonary: Effort: Pulmonary effort is normal. No respiratory distress. Breath sounds: Normal breath sounds. No wheezing, rhonchi or rales. Abdominal: General: Bowel sounds are normal. Palpations: Abdomen is soft. Tenderness: There is no abdominal tenderness. There is no guarding. Musculoskeletal: Cervical back: Neck supple. Right lower leg: No edema. Left lower leg: No edema. Skin: Findings: No rash. Neurological: Mental Status: He is alert and oriented to person, place, and time. Mental status is at baseline. ASSESSMENT/PLAN: Essential hypertension with goal blood pressure less than 140/90 (Primary) He had 24 hours BP monitoring done showing good BP numbers Reports normal numbers at home. Continue Diltiazem Chronic kidney disease, stage 3a (HCC) Stable. Check renal function - BASIC METABOLIC PANEL; Future; Expected date: 01/07/2024 Subclinical hypothyroidism Will continue to monitor TSH Results: Lab Results Component Value Date/Time TSH - [facility] 4.53 (H) 12/04/2023 01:17 PM TSH - [facility] 8.53 (H) 08/25/2023 01:33 PM TSH - [facility] 6.03 (H) 07/21/2023 01:13 PM TSH - [facility] 4.17 11/26/2019 11:17 AM TSH - [facility] 4.14 02/17/2018 03:30 PM TSH - [facility] 2.61 01/16/2014 04:37 AM TSH - OUT[facility]IDE [facility] 3.98 08/10/2020 12:00 AM BPH without obstruction/lower urinary tract symptoms Stable on Tamsulosin Parastomal hernia without obstruction or gangrene Seen by surgery. No intervention recommended. 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 He is yet to see cardiology Get repeat ECHO Follow Up: Return in about 6 months (around 07/06/2024). I spent a total of 40-54 minutes (exact time 44 mins) on the date of service in preparation, delivery, and documentation of the care provided to Chuy Tillman excluding any time spent in the performance of separately billed services or time spent by another provider/QHP. Charles Jarrtet MD documented in this encounter Plan of Treatment Upcoming Encounters Date Type Department Care Team (Late st Contact Info) Description 01/26/2024 8:00 AM EDT Office Visit [facility] Surgery [facility] [address] [place] [address] Ania Schumacher MD [address] [place] [address] 01/30/2024 7:30 AM EDT Hospital Encounter [place] [facility] [facility] [address] [place] [phone] Nils Moore MD [address] [place], [place] [phone] 01/30/2024 7:30 AM EDT - 01/30/2024 9:34 AM EDT Surgery [place] [facility] [address] [place] [id number] Nils Moore MD [address] [place] [address] REVISION OF COLOSTOMY SIMPLE 02/12/2024 12:15 PM EDT Office Visit [facility] [address] [place] [address] Janna Ibarra MD [address] [place] [address] 02/18/2024 3:30 PM EST [facility] [address] [place] [address] Edwige Forrest, [facility] [address] [place] [address] 03/29/2024 2:30 PM EST Office Visit General Surgery, [place] [address], [place] [phone] Cipriano Wyatt DO [address] [place], [place] [phone] 07/06/2024 1:30 PM EDT Office Visit General Internal Medicine, [facility] [address], [place] [phone] Charles Jarrett MD [address], [place] [phone] Scheduled Orders Name Type Priority Associated Diagnoses Orde r Schedule BASIC METABOLIC PANEL Lab Routine Chronic kidney disease, stage 3a (HCC) Expected: 01/07/2024, Expires: 01/06/2025 ALBUMIN / CREATININE RATIO, URINE Lab Routine Chronic kidney disease, stage 3a (HCC) Expected: 01/07/2024, Expires: 01/06/2025 ECHO, COMPLETE (2D), TRANS-THORACIC Echocardiology Routine 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) Expected: 01/07/2024, Expires: 02/05/2026 Scheduled Procedures Name Priority Associated Diagnoses Date/Ti [...] 01/02/2024 01/01/2023, 11/12 CKD HGB USE SMARTSET 81503 05/19/202405/19, 05/19/2023, 01/01/2023, Additional history exists CKD PHOS USE SMARTSET 90773 07/20/20240 11/2023, 07/05/2022, 12/26/2021, Additional history exists Colonoscopy Discontinued 09/03/2023, 06/2013, 11/14/2010, Additional history exists HPV (Gardasil) Vaccine Aged Out No lo nger eligible based on patient's age to complete this topic MENINGOCOCCAL (MENACTRA/MENVEO) Aged Out No longer eligible based on patient's age to complete this topic documented as of this encounter Medical Devices Implanted Type Area Mapper Device Identifier Shelf Expiration Date Model / Serial / Lot Graft Hemjuan cld [id number] - [id number] Implanted:Qty : 1 on 12/09/2013 at [place] [facility] N/A: Aorta [employer] 10/11/2017 [id number] / / [id number] Glcm Brvldt Tami Ac Imnpl - [id number] - [id number] Implanted:Qty : 1 on 10/19/2020 by Sheryl Narayanan MD at OR [facility] Left: Eye [employer] [id number] 04/20/2022 [id number] / [id number] / LOT NA Graft [place] Cornea Split - [id number] - [id number] Implanted:Qty : 1 on 10/19/2020 by Sheryl Narayanan MD at OR [facility] Left: Eye [employer] 03/13/2022 HCO-HH1 / [id number] / [id number] Drain Glcm Brvldt Tami Imnpl - [id number] - [id number] Implanted:Qty : 1 on 12/03/2021 by Sheryl Narayanan MD at OR [facility] Left: Eye [employer] [id number] 01/11/2023 [id number] / [id number] / LOT NA Graft [place] Cornea Split - [id number] - [id number] Implanted:Qty : 1 on 12/03/2021 by Sheryl Narayanan MD at OR [facility] Left: Tucker [employer] 09/04/2023 O-HH1 / [id number] / [id number] documented as of this encounter Visit Diagnoses Diagnosis History of creation of ostomy (HCC)- Primary Essential hypertension with goal blood pressure less than 140/90- Primary Chronic kidney disease, stage 3a (HCC) 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 No Care Teams Lime Plant Operator Relationship Specialty Start Date End Date Charles Jarrett MD [address] [place] [address] PCP - General Internal Medicine 10/25/19 documented as of this encounter
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
--- OUTSIDE RECORDS SUMMARY | 2024-04-15 13:25 | External Medical Summary | Summary of Care ---
Author Name Unknown Organization [facility] Address [address] [place] [address] Phone [phone] Care Team Providers Care Billing Associate Name Role Phone Charles Jarrett MD Primary Care Provider [phone] Reason for Visit * Reason Comments Outpatient Testing Encounter Details Date Type Department Care Team (Late st Contact Info) Description 12/04/2023 1:20 PM EDT Laboratory Laboratory, [facility] [address] [place] [address] [facility] [address] [place] [address] Subclinical hypothyroidism Allergies Active Allergy Reactions Criticality Noted Date Comments Proparacaine Hcl Other (Please comment) 016 sensitivity per pt- causes itching, irritation to eyelids Aspirin Low 11/09/2012 Nose bleed; CAN tolerate NSAIDs documented as of this encounter (statuses as of 12/04/2023) Medications Medication Sig Dispensed Refills Start Date End Date Status Ascorbic Acid (VITAMIN C) 1000 MG Tablet 1 tablet by mouth twice daily. Active Nystatin (NYSTOP) 289389 UNIT/GM powder Apply topically to affected area [...] as of this encounter (statuses as of 12/04/2023) Active Problems Problem Noted Date Diagnosed Date [...] as of this encounter (statuses as of 12/04/2023) Resolved Problems Problem Noted Date Diagnosed Date [...] as of this encounter (statuses as of 12/04/2023) Immunizations Name Administration Dates Next Due COVID-19 mRNA, LNP-s, No Pre serve, 2-Dose Series (Moderna) 08/03/2020,07/06/2020 Seasonal Influenza, PF, 6 M & above, IM , (FluLaval or Fluzone) 03/25/2017 Seasonal Influenza, Quadrivalent Hd (Fluzone Hd) 01/01/2023 Seasonal Influenza, Split, IIV3, With Preserve, Inj 01/11/2014,01/22/2007 Seasonal Influenza, Trivalent, Adjuvanted, 65+ y rs 01/26/2022,03/09/2019 documented as of this encounter Social [...] Team (Late st Contact Info) Description 12/29/2023 11:30 AM EDT Office Visit Dermatology [facility] [address] [place], [place] [phone] Lizabeth Shah MD [address] [place] [address] 01/07/2024 1:30 PM EDT Office Visit [facility] [address] [place], [place] [phone] Charles Jarrett MD [address] [place], [place] [phone] 01/30/2024 7:30 AM EDT Hospital Encounter [facility], [facility] [address] [place] [phone] Nils Moore MD [address] [place], [place] [phone] 01/30/2024 7:30 AM EDT - 01/30/2024 9:34 AM EDT Surgery [facility], OPERATING ROOM [facility], [facility] [place] [address] [place] [phone] Nils Moore MD [address] [place] [address] REVISION OF COLOSTOMY SIMPLE 02/18/2024 3:30 PM EST Office Visit General Surgery, [place] [address], [place] [phone] Edwige Forrest PA-C [address] [place] [address] 03/29/2024 2:30 PM EST Office Visit General Surgery, [place] [address], [place] [phone] Cipriano Wyatt DO [address] [place], [place] [phone] 04/30/2024 1:30 PM EST Office Visit Cardiology, [facility] [address] [place] [address] Mayo Cedillo, [address] [facility] [place] [address] Pending Results Name Type Priority Associated Diagnoses Date /Time TSH WITH FREE T4 IF INDICATED Lab Routine Subclinical hypothyroidism 12/04/2023 1:17 PM EDT Scheduled Procedures Name Priority Associated Diagnoses Date/Ti me REVISION OF COLOSTOMY SIMPLE History of creation of ostomy (HCC) 01/30/2024 7:30 AM EDT Health Maintenance Due Date Last Done Comments DTaP,Tdap,and Td Vaccines (1 - Tdap) 1956 Zoster Vaccines (1 of 2) 1987 Adult Wellness Visit 2003 Pneumococcal Vaccine: 65+ Years (2 of 2 - PCV) 03/31/2004 03/31/2003 COVID-19 Vaccine (3 - 2022- season) 2022 08/03/2020, 07/06/2020 Influenza Vaccine (FLU shot) (#1) 2023 01/01/2023, 01/26/2022, 01/30/2021, Additional history exists Albumin/Creatinine Ratio 01/02/2024 01/01/2023, 11/12 CKD HGB USE SMARTSET 02321 05/19/202405/19, 05/19/2023, 01/01/2023, Additional history exists CKD PHOS USE SMARTSET 26538 07/20/2024 040 11/2023, 07/05/2022, 12/26/2021, Additional history exists Colonoscopy Discontinued 12/15/2013, 06/2010, 11/14/2010, Additional history exists HPV (Gardasil) Vaccine Aged Out No lo nger eligible based on patient's age to complete this topic MENINGOCOCCAL (MENACTRA/MENVEO) Aged Out No longer eligible based on patient's age to complete this topic documented as of this encounter Medical Devices Implanted Type Area Cardiac Surgeon Device Identifier Shelf Expiration Date Model / Serial / Lot Graft Hemashld [id number] - [id number] Implanted:Qty : 1 on 12/09/2013 at OR [facility] N/A: Aorta [employer] 10/11/2017 [id number] / / [id number] Glcm Brvldt [facility] Imnp - [id number] - [id number] Implanted:Qty : 1 on 10/19/2020 by Sheryl Narayanan MD at [facility] Left: Eye [employer] [id number] 04/20/2022 [id number] / [id number] / LOT NA Graft [place] Cornea Split - [id number] - [id number] Implanted:Qty : 1 on 10/19/2020 by Sheryl Narayanan MD at [facility] Left: Eye [employer] 03/13/2022 HCO-HH1 / [id number] / [id number] Drain Glcm Brvldt Tami Imnp - [id number] - [id number] Implanted:Qty : 1 on 12/03/2021 by Sheryl Narayanan MD at [facility] Left: Eye [employer] [id number] 01/11/2023 [id number] / [id number] / LOT NA Graft [place] Cornea Split - [id number] - [id number] Implanted:Qty : 1 on 12/03/2021 by Sheryl Narayanan MD at [facility] Left: Eye [employer] 09/04/2023 HCO-HH1 / [id number] / [id number] documented as of this encounter Visit Diagnoses Diagnosis 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 No Care Teams Billing Associate Relationship Specialty Start Date End Date Charles Jarrett MD [address] [place] [address] PCP - General Internal Medicine 10/25/19 documented as of this encounter
--- OUTSIDE RECORDS SUMMARY | 2024-04-15 13:25 | External Medical Summary ---
Author Name Unknown Address Unknown Organization K01:LABORATORY [facility] - [address] [facility] [address] Laboratory Report Ordering Provider Test Date Status BRUCERISHIJOANNE 12/04/2023 13:17:50 Final Observation Date Value Abnormality Reference (Units ) Status TSH 12/04/2023 13:17:50 4.53 Above high normal 0. 27-4.20 (uIU/mL) Final Performing Location LABORATORY [facility] - [address] [facility] [address]
--- OUTSIDE RECORDS SUMMARY | 2024-04-15 13:25 | External Medical Summary | Summary of Care ---
Author Name Unknown Organization [facility] Address [address] [place] [address] Phone [phone] Care Team Providers Care Study Specialist Name Role Phone Charles Jarrett MD Primary Care Provider [phone] Reason for Referral * Evaluate & Treat - Unlimited Visits (Within 30 days (routine)) - Authorized Specialty Diagnoses / Procedures Referred By Contac t Referred To Contact Dermatology Diagnoses Basal cell carcinoma (BCC) of skin of nose Lizabeth Shah MD [address] [place] [address] Referral ID Status Reason Start Date Expiration Date Visits Requested Visits Authorized [id number] Authorized Specialty Services Required 12/25/2023 999 999 Question Answer Referral Priority Within 30 days (routine) Where should this appointment be scheduled? [facility] Are you referring the patient for Mohs Surgery and have a current positive skin cancer biopsy result? Yes Type of Procedure MOHS Surgery Comments A. Skin, nose, shave: Basal cell carcinoma, nodular type Reason for Visit * Reason Comments Follow Up Patient here for a s kin check. Hx MIS and ATN. He has several spots of concern. Encounter Details Date Type Department Care Team (Late st Contact Info) Description 12/19/2023 2:30 PM EDT Office Visit Dermatology Kiera Cruz [facility] [address] [place] [address] Lizabeth Shah MD [address] [place] [address] Basal cell carcinoma (BCC) of skin of nose*; Skin neoplasm; Seborrheic keratoses; History of nonmelanoma skin cancer; History of melanoma in situ Allergies Active Allergy Reactions Criticality Noted Date Comments Proparacaine Hcl Other (Please comment) 016 sensitivity per pt- causes itching, irritation to eyelids Aspirin Low 11/09/2012 Nose bleed; CAN tolerate NSAIDs documented as of this encounter (statuses as of 12/25/2023) Medications Medication Sig Dispensed Refills Start Date End Date Status Ascorbic Acid (VITAMIN C) 1000 MG Tablet 1 tablet by mouth twice daily. Active Nystatin (NYSTOP) 778104 UNIT/GM powder Apply topically to affected area [...] as of this encounter (statuses as of 12/25/2023) Active Problems Problem Noted Date Diagnosed Date [...] as of this encounter (statuses as of 12/25/2023) Resolved Problems Problem Noted Date Diagnosed Date [...] as of this encounter (statuses as of 12/25/2023) Immunizations Name Administration Dates Next Due COVID-19 [...] 88 year old male who presents with H non- melanoma skin cancer and melanoma in [...] tablet by mouth twice daily. Nystatin (NYSTOP) 341054 UNIT/GM powder Apply topically to affected area [...] call me to obtain results. [facility] Irritated nevus I discussed the risks, benefits [...] l me to obtain results. [facility] seborrheic keratosis observe actinic keratosis I discussed [...] spots of concern. documented in this encounter Miscellaneous Notes * Addendum Note - Lizabeth Shah MD - 12/25/2023 3:45 PM EDTAddended by: LIZABETH SHAH on: 12/25/2023 03:45 PM Modules accepted: Orders * Result Encounter Note - Lizabeth Shah MD - 12/25/2023 3:45 PM EDT A. Skin, nose, shave: Basal cell carcinoma, nodular type B. Skin, left lower back, shave: Infundibulocystic squamous proliferation, inflamed (see comment) Comment: The lesion is not identified at an inked margin in the planes of section examined. Hematoxylin and eosin stained sections reveal a sessile lesion consisting of hyperkeratosis overlying an acanthotic epidermis with an endophytic and cystic proliferative pattern of growth. Mild keratinocyte atypia is present. Overall, while the histologic findings are not consistent with overt squamous cell carcinoma, the lesion shows an architecturally atypical growth pattern and could thus possess dysplastic/invasive potential or represent an evolving form of keratoacanthoma. If the lesion persists or recurs, resampling/removal of the lesion should be considered if clinically warranted. Patient Phone Numbers mobile [phone] Spoke with patient Mohs ordered He would like this scheduled with his . documented in this encounter Plan of Treatment Upcoming Encounters Date Type Department Care Team (Late st Contact Info) Description 01/07/2024 1:30 PM EDT Office Visit General Internal Medicine, [facility] [address], [place] [phone] Charles Jarrett MD [address] [place] [address] 01/30/2024 7:30 AM EDT Hospital Encounter OR [facility], OPERATING ROOM [facility] [address] [place] [phone] Nils Moore MD [address] [place] [address] 01/30/2024 7:30 AM EDT - 01/30/2024 9:34 AM EDT Surgery OR [facility] [address] [place] [phone] Nils Moore MD [address], [place] [phone] REVISION OF COLOSTOMY SIMPLE 02/18/2024 3:30 PM EST Office Visit General Surgery, [facility] [address] [place] [address] Edwige Forrest PA-C [address] [place] [address] 03/29/2024 2:30 PM EST Office Visit General Surgery, [facility] [address], [place] [phone] Cipriano Wyatt DO [address] [place] [address] 04/30/2024 1:30 PM EST Office Visit Cardiology, [facility] [address] [facility] [place] [address] Mayo Cedillo, DO [facility] [place] [address] Scheduled Procedures Name Priority Associated Diagnoses Date/Ti me REVISION OF COLOSTOMY SIMPLE History of creation of ostomy (HCC) 01/30/2024 7:30 AM EDT Scheduled Referrals Name Type Priority Associated Diagnoses Orde r Schedule MOHS SURGERY REFERRAL OP Referral Within 30 days (routine) Basal cell carcinoma (BCC) of skin of nose Ordered: 12/25/2023 Health Maintenance Due Date Last Done Comments DTap/Tdap Vaccines (1 - Tdap) 1954 Zoster Vaccines (1 of 2) 1987 Adult Wellness Visit 2003 Pneumococcal Vaccine: 65+ Years (2 of 2 - PCV) 03/31/2004 03/31/2003 COVID-19 Vaccine (3 - season) 2023 08/03/2020, 07/06/2020 Influenza Vaccine (FLU shot) (#1) 2023 01/01/2023, 01/26/2022, 01/30/2021, Additional history exists Albumin/Creatinine Ratio 01/02/2024 01/01/2023, 11/12 CKD HGB USE SMARTSET 01142 05/19/202405/19, 05/19/2023, 01/01/2023, Additional history exists CKD PHOS USE SMARTSET 14659 07/20/20240 11/2023, 07/05/2022, 12/26/2021, Additional history exists Colonoscopy Discontinued 12/15/2013, 06/2010, 11/14/2010, Additional history exists HPV (Gardasil) Vaccine Aged Out No lo nger eligible based on patient's age to complete this topic MENINGOCOCCAL (MENACTRA/MENVEO) Aged Out No longer eligible based on patient's age to complete this topic documented as of this encounter Medical Devices Implanted Type Area Environmental Air Specialist Device Identifier Shelf Expiration Date Model / Serial / Lot Graft Jorge Carter18mm [id number] - [id number] Implanted:Qty : 1 on 12/09/2013 at OR [facility] N/A: Aorta R + B Group 10/11/2017 [id number] / / [id number] Drain Glcm Brvldt Tami Imnp - [id number] - [id number] Implanted:Qty : 1 on 10/19/2020 by Sheryl Narayanan MD at [facility] Left: Eye [employer] [id number] 04/20/2022 [id number] / [id number] / LOT NA Graft [place] Cornea Split - [id number] - [id number] Implanted:Qty : 1 on 10/19/2020 by Sheryl Narayanan MD at [facility] Left: Eye LIboosk [employer] 03/13/2022 HCO-HH1 / [id number] / [id number] Drain Glcm Brvldt [facility] Imnp - [id number] - [id number] Implanted:Qty : 1 on 12/03/2021 by Sheryl Narayanan MD at [facility] Left: Eye [employer] [id number] 01/11/2023 [id number] / [id number] / LOT NA Graft [place] Cornea Split - [id number] - [id number] Implanted:Qty : 1 on 12/03/2021 by Sheryl Narayanan MD at [facility] Left: Eye LILUIS [employer]IFT 09/04/2023 O-HH1 / [id number] / [id number] documented as of this encounter Procedures Procedure Name Priority Date/Time Associated Diagnosis Comments SURGICAL PATHOLOGY Routine 12/19/2023 2: 47 PM EDT Skin neoplasm documented in this encounter Results * SURGICAL PATHOLOGY (12/19/2023 2:47 PM EDT) Final Diagnosis A. Skin, nose, shave: Basal cell carcinoma, nodular type B. Skin, left lower back, shave: Infundibulocystic squamous proliferation, inflamed (see comment) Comment: The lesion is not identified at an inked margin in the planes of section examined. Hematoxylin and eosin stained sections reveal a sessile lesion consisting of hyperkeratosis overlying an acanthotic epidermis with an endophytic and cystic proliferative pattern of growth. Mild keratinocyte atypia is present. Overall, while the histologic findings are not consistent with overt squamous cell carcinoma, the lesion shows an architecturally atypical growth pattern and could thus possess dysplastic/invasiv e potential or represent an evolving form of keratoacanthoma. If the lesion persists or recurs, resampling/removal of the lesion should be considered if clinically warranted. 12/25/2023 3:42 PM EDT LABORATORY [facility] Clinical History See Order Comments 12/25/2023 3:42 PM EDT LABORATORY C Order Comments A- sebaceous hyperplasia with translucent papule possible. Bcc B- irritated nevus 12/25/2023 3:42 PM EDT [facility] Gross Description A. Skin. Received in formalin with a container labeled with "Chuy Gail Snellfogle", "[id number]", "1935" and " nose". Received is a 0.7 x 0.5 cm skin shave. The skin surface has a white to yellow slightly raised, firm dull, mottled papule that encompasses the entire specimens surface. The underlying tissue is inked. The specimen is bisected and submitted in cassette A1. Gross By: MD Hansen Skin. Received in formalin with a container labeled with "Chuy Gail Snellfogle", "[id number]", "1935" and " left lower back". Received is a 1.1 x 0.7 cm skin shave. The skin surface has a valerio to pink, slightly raised slightly rough firm, dull, mottled scaly keratotic appearing papule measuring 0.7 x 0.6 cm which extends to the closest margin. The underlying tissue is inked. The specimen is trisected and submitted in cassette B1. Gross By: 12/25/2023 3:42 PM EDT LABORATORY [facility] Sign Out Location Pathologist sign out performed at [facility] ([facility]), [facility] [place] [address]. 12/25/2023 3:42 PM EDT LABORATORY [facility] Photographic images and diagrams represent giordano findings in this case; they are not intended to replace a complete review of the final diagnostic report. The following statement applies to Flow Cytometry, Histology, In situ Hybridization Assays and Molecular Genetics. This test was developed and performed at [facility] and its performance characteristics determined by [facility] It has not been cleared or approved by the U.S. Food and Drug Administration. The FDA has determined that such clearance or approval is not necessary. This test is used for clinical purposes. It should not be regarded as investigational or for research. Special stains, including histochemical stains, and studies using immunologic and ARPAN methodology (where applicable) are performed with appropriate positive and negative control reactions. 12/25/2023 3:42 PM EDT LABORATORY [facility] Tissue Skin structure / Unknown 12/19/2023 2:47 PM EDT 12/19/2023 2:47 PM EDT Comment:A- sebaceous hyperpl luz with translucent papule possible. BccB- irritated nevus Specimen from wound (specimen) Skin structure / Unknown 12/19/2023 2:47 PM EDT 12/19/2023 2:47 PM EDT Comment:A- sebaceous hyperpl luz with translucent papule possible. 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 No Care Teams Study Specialist Relationship Specialty Start Date End Date Charles Jarrett MD [address] [place] [address] PCP - General Internal Medicine 10/25/19 documented as of this encounter
--- OUTSIDE RECORDS SUMMARY | 2024-04-15 13:25 | External Medical Summary | Summary of Care ---
Author Name Unknown Organization [facility] Address [address] [place] [address] Phone [phone] Care Team Providers Care Ceo Na Name Role Phone Charles Jarrett MD Primary Care Provider [phone] Reason for Visit * Reason Onset Date Comments Advice 11/24/2023 Encounter Details Date Type Department Care Team (Late st Contact Info) Description 11/24/2023 Telephone General Surgery, [place] [address] [place] [address] Nils Moore MD [address] [place] [address] Advice Allergies Active Allergy Reactions Criticality Noted Date Comments Proparacaine Hcl Other (Please comment) 016 sensitivity per pt- causes itching, irritation to eyelids Aspirin Low 11/09/2012 Nose bleed; CAN tolerate NSAIDs documented as of this encounter (statuses as of 11/26/2023) Medications Medication Sig Dispensed Refills Start Date End Date Status Ascorbic Acid (VITAMIN C) 1000 MG Tablet 1 tablet by mouth twice daily. Active Nystatin (NYSTOP) 479245 UNIT/GM powder Apply topically to affected area [...] as of this encounter (statuses as of 11/26/2023) Active Problems Problem Noted Date Diagnosed Date [...] as of this encounter (statuses as of 11/26/2023) Resolved Problems Problem Noted Date Diagnosed Date [...] as of this encounter (statuses as of 11/26/2023) Immunizations Name Administration Dates Next Due COVID-19 mRNA, LNP-s, No Pre serve, 2-Dose Series (Moderna) 08/03/2020,07/06/2020 Pneumococcal Polysaccharide PPV23 (Pneumovax) 03/31/2003 Seasonal Influenza, PF, 6 M & above, IM , (FluLaval or Fluzone) 03/25/2017 Seasonal Influenza, Quadriva lent Hd (Fluzone Hd) 01/01/2023 Seasonal Influenza, Split, I IV3, With Preserve, Inj 01/11/2014,01/22/2007,03/31/2003 Seasonal Influenza, Trivalen t, Adjuvanted, 65+ yrs 01/26/2022,03/09/2019 documented as of this encounter Social [...] encounter Miscellaneous Notes * Telephone Encounter - Naida Cid LPN - 11/26/2023 9:34 AM EDT Returned call to patient and LVM to return call. * Telephone Encounter - Jazlyn Morrissey OSA - 11/25/2023 5:06 PM EDT Patient returned your call during non business hours, please call patient back tomorrow if possible. * Telephone Encounter - Naida Cid LPN - 11/25/2023 10:16 AM EDT Patient called and LVM to return call to discuss another surgery date in January. Number provided to return call. * Telephone Encounter - Fauzia Blanco OSA - 11/24/2023 2:33 PM EDT Pt calling in stating that his stoma is back to normal and he is wondering if his surgery should bepushed out until January. Please call the pt to discuss and advise. documented in this encounter Plan of Treatment Upcoming Encounters Date Type Department Care Team (Late st Contact Info) Description 12/16/2023 3:06 PM EDT Hospital Encounter OR [facility], OPERATING ROOM [facility] [address] [place] [phone] Nils Moore MD [address], [place] [phone] 12/16/2023 3:06 PM EDT - 12/16/2023 5:10 PM EDT Surgery OR [facility], OPERATING ROOM [facility] [address] [place] [phone] Nils Moore MD [address], [place] [phone] REVISION OF COLOSTOMY SIMPLE 12/29/2023 11:30 AM EDT Office Visit Dermatology [address] [address] Lizabeth Shah MD [address] [place] [phone] 01/07/2024 1:30 PM EDT Office Visit General Internal Medicine, [facility] [address], [place] [phone] Charles Jarrett MD [address], [place] [phone] 01/07/2024 3:30 PM EDT Office Visit General Surgery, [place] [address] [place] [address] Edwige Forrest PA-C [address] [place] [address] 03/29/2024 2:30 PM EST Office Visit General Surgery, [place] [address] [place] [address] Cipriano Wyatt DO [address], [place] [phone] 04/30/2024 1:30 PM EST Office Visit Cardiology, [facility] [address] [facility] [place] [address] [address], [address] [facility] [place] [address] Scheduled Procedures Name Priority Associated Diagnoses Date/Ti me REVISION OF COLOSTOMY SIMPLE History of creation of ostomy (HCC) 12/16/2023 3:06 PM EDT Health Maintenance Due Date Last Done Comments DTaP,Tdap,and Td Vaccines (1 - Tdap) 1954 Zoster Vaccines (1 of 2) 1987 Adult Wellness Visit 2003 Pneumococcal Vaccine: 65+ Years (2 of 2 - PCV) 03/31/2004 03/31/2003 COVID-19 Vaccine ( - season) 2022 08/03/2020, 07/06/2020 Influenza Vaccine (FLU shot) (#1) 2023 01/01/2023, 01/26/2022, 01/30/2021, Additional history exists Albumin/Creatinine Ratio 01/02/2024 01/01/2023, 11/12 CKD HGB USE SMARTSET 66820 05/19/202405/19, 05/19/2023, 01/01/2023, Additional history exists CKD PHOS USE SMARTSET 79798 07/20/2024 04/0 11/2023, 07/05/2022, 12/26/2021, Additional history exists Colonoscopy Discontinued 12/15/2013, 06/2010, 11/14/2010, Additional history exists HPV (Gardasil) Vaccine Aged Out No lo nger eligible based on patient's age to complete this topic MENINGOCOCCAL (MENACTRA/MENVEO) Aged Out No longer eligible based on patient's age to complete this topic documented as of this encounter Medical Devices Implanted Type Area Director Of Cardiac Rehabilitation Device Identifier Shelf Expiration Date Model / Serial / Lot Graft Hemashld [id number] - [id number] Implanted:Qty : 1 on 12/09/2013 at [place] [facility] N/A: Aorta Wellntel 10/11/2017 [id number] / / [id number] Drain Glcm Brvldt [facility] Imnpl - [id number] - [id number] Implanted:Qty : 1 on 10/19/2020 by Sheryl Narayanan MD at [facility] Left: Eye [employer] [id number] 04/20/2022 [id number] / [id number] / LOT NA Graft [place] Cornea Split - [id number] - [id number] Implanted:Qty : 1 on 10/19/2020 by Sheryl Narayanan MD at [facility] Left: Eye LIONS [employer] 03/13/2022 HCO-HH1 / [id number] / [id number] Drain Glcm Brvldt [facility] Imnp - [id number] - [id number] Implanted:Qty : 1 on 12/03/2021 by Sheryl Narayanan MD at [facility] Left: Eye [employer] [id number] 01/11/2023 [id number] / [id number] / LOT NA Graft [place] Cornea Split - [id number] - [id number] Implanted:Qty : 1 on 12/03/2021 by Sheryl Narayanan MD at [facility] Left: Eye LIONS [employer] 09/04/2023 HCO-HH1 / [id number] / [id number] documented as of this encounter Advance [...] of Attor luis m? No Care Teams Ceo Na Relationship Specialty Start Date End Date Charles Jarrett MD [address] [place] [address] PCP - General Internal Medicine 10/25/19 documented as of this encounter
--- OUTSIDE RECORDS SUMMARY | 2024-04-15 13:25 | External Medical Summary ---
Author Name Unknown Address Unknown Organization K01:[facility] - [address] [place] [address] Laboratory Report Ordering Provider Test Date Status JOANNE BARRERA 12/04/2023 13:17:50 Final Observation Date Value Abnormality Reference (Units ) Status T4, Free 12/04/2023 13:17:50 1.1 0.9-1.7 (n g/dL) Final Performing Location [facility] - [address] [place] [address]
--- OUTSIDE RECORDS SUMMARY | 2024-04-15 13:25 | External Medical Summary | Summary of Care ---
Author Name Unknown Organization [facility] Address [address] [place] [address] Phone [phone] Care Team Providers Care Material Controller Name Role Phone Charles Jarrett MD Primary Care Provider [phone] Reason for Visit * Reason Comments Follow Up Patient here for a s kin check. Hx MIS and ATN. He has several spots of concern. Encounter Details Date Type Department Care Team (Late st Contact Info) Description 12/19/2023 2:30 PM EDT Office Visit Dermatology [facility] [address] [place] [address] Lizabeth Shah MD [address] [place] [address] Skin neoplasm*; Seborrheic keratoses; History of [...] by mouth twice daily. Active Nystatin (NYSTOP) 651815 UNIT/GM powder Apply topically to affected area [...] 88 year old male who presents with [facility] non- melanoma skin cancer and melanoma [...] tablet by mouth twice daily. Nystatin (NYSTOP) 571799 UNIT/GM powder Apply topically to affected area [...] PM EDT Office Visit General Internal Medicine, [facility] [address], [place] [phone] Charles Jarrett MD [address], [place] [address] 01/30/2024 7:30 AM EDT Hospital Encounter OR [facility], OPERATING ROOM [facility] [address] [place] [phone] Nils Moore MD [facility] [address] [place], [place] [phone] 01/30/2024 7:30 AM EDT - 01/30/2024 9:34 AM EDT Surgery OR [facility], OPERATING ROOM [facility] [address] [place] [phone] Nils Moore MD [address] [place], [place] [phone] REVISION OF COLOSTOMY SIMPLE 02/18/2024 3:30 PM EST Office Visit [facility] [address], [place] [phone] Edwige Forrest PA-C [address] [place] [address] 03/29/2024 2:30 PM EST Office Visit General Surgery, [place] [address] [place] [address] Cipriano Waytt DO [address] [place] [address] 04/30/2024 1:30 PM EST Office Visit Cardiology, [facility] [address] [facility] [address] Mayo Cedillo, DO [address] [place] [address] Pending Results Name Type Priority Associated Diagnoses [...] 01/02/2024 01/01/2023, 11/12 CKD HGB USE SMARTSET 49905 05/19/202405/19, 05/19/2023, 01/01/2023, Additional history exists CKD PHOS USE SMARTSET 40823 07/20/2024 04/0 11/2023, 07/05/2022, 12/26/2021, Additional history exists Colonoscopy Discontinued 12/15/2013, 0 06/2010, 11/14/2010, Additional history exists HPV (Gardasil) Vaccine Aged Out No lo nger eligible based on patient's age to complete this topic MENINGOCOCCAL (MENACTRA/MENVEO) Aged Out No longer eligible based on patient's age to complete this topic documented as of this encounter Medical Devices Implanted Type Area Cotton Buyer Device Identifier Shelf Expiration Date Model / Serial / Lot Graft Hemashld [id number] - [id number] Implanted:Qty : 1 on 12/09/2013 at OR [facility] N/A: Aorta Ryla 10/11/2017 [id number] / / [id number] Drain Glcm Brvldt [employer] Imnpl - [id number] - [id number] Implanted:Qty : 1 on 10/19/2020 by Sheryl Narayanan MD at [facility] Left: Eye [employer] [id number] 04/20/2022 [id number] / [id number] / LOT NA Graft [place] Cornea Split - [id number] - [id number] Implanted:Qty : 1 on 10/19/2020 by Sheryl Narayanan MD at [facility] Left: Eye LIONS [employer] 03/13/2022 HCO-HH1 / [id number] / [id number] Drain Glcm Brvldt Tami Imnpl - [id number] - [id number] Implanted:Qty : 1 on 12/03/2021 by Sheryl Narayanan MD at [facility] Left: Eye [employer] [id number] 01/11/2023 KS078-741 / [id number] / LOT NA Graft [place] Cornea Split - [id number] - [id number] Implanted:Qty : 1 on 12/03/2021 by Sheryl Narayanan MD at [facility] Left: Eye LIONS [employer] 09/04/2023 HCO-HH1 / [id number] / [id number] documented as of this encounter Visit [...] of Attor luis m? No Care Teams Material Controller Relationship Specialty Start Date End Date Charles Jarrett MD [address] [place] [address] PCP - General Internal Medicine 10/25/19 documented as of this encounter
--- OUTSIDE RECORDS SUMMARY | 2024-04-15 13:25 | External Medical Summary | Summary of Care ---
Author Name Unknown Organization [facility] Address [address] [place] [address] Phone [phone] Care Team Providers Care Manager Tax Name Role Phone Charles Jarrett MD Primary Care Provider [phone] Reason for Visit * Reason Onset Date Comments Advice 11/24/2023 Encounter Details Date Type Department Care Team (Late st Contact Info) Description 11/24/2023 Telephone General Surgery, [place] [address] [place] [address] Nils Moore MD [address] [place] [address] Advice Allergies Active Allergy Reactions Criticality Noted Date Comments Proparacaine Hcl Other (Please comment) 016 sensitivity per pt- causes itching, irritation to eyelids Aspirin Low 11/09/2012 Nose bleed; CAN tolerate NSAIDs documented as of this encounter (statuses as of 11/25/2023) Medications Medication Sig Dispensed Refills Start Date End Date Status Ascorbic Acid (VITAMIN C) 1000 MG Tablet 1 tablet by mouth twice daily. Active Nystatin (NYSTOP) 742227 UNIT/GM powder Apply topically to affected area [...] as of this encounter (statuses as of 11/25/2023) Active Problems Problem Noted Date Diagnosed Date [...] because he has a neighbor urologist in [place] who recommended against it unless PSA rises [...] as of this encounter (statuses as of 11/25/2023) Resolved Problems Problem Noted Date Diagnosed Date [...] as of this encounter (statuses as of 11/25/2023) Immunizations Name Administration Dates Next Due COVID-19 [...] 12/16/2023 3:06 PM EDT Hospital Encounter OR C, [facility] [address] [facility] [address] Nils Moore MD [address] [place] [address] 12/16/2023 3:06 PM EDT - 12/16/2023 5:10 PM EDT Surgery OR GM, OPERATING ROOM [facility], [facility] [address] [place] [address] Nils Moore MD [address] [place] [address] REVISION OF COLOSTOMY SIMPLE 12/29/2023 11:30 AM EDT Office Visit Dermatology [facility] [address] [place] [address] Lizabeth Shah MD [address] [place] [address] 01/07/2024 1:30 PM EDT Office [facility] [address] [place] [address] Charles Jarrett MD [address] [place] [address] 01/07/2024 3:30 PM EDT Office Visit General Surgery, [place] [address] [place] [address] Edwige Forrest PA-C [address] [place] [address] 03/29/2024 2:30 PM EST Office Visit General Surgery, [place] [address] [place] [address] Cipriano Wyatt DO [address] [place] [address] 04/30/2024 1:30 PM EST Office Visit Cardiology, [facility] [address] [place] [address] Mayo Ceidllo, DO [address] [place] [address] Scheduled Procedures Name Priority Associated Diagnoses Date/Ti [...] 01/02/2024 01/01/2023, 11/12 CKD HGB USE SMARTSET 48651 05/19/202405/19, 05/19/2023, 01/01/2023, Additional history exists CKD PHOS USE SMARTSET 36992 07/20/202411/2023, 07/05/2022, 12/26/2021, Additional history exists Colonoscopy Discontinued 12/15/2013, 06/2010, 11/14/2010, Additional history exists HPV (Gardasil) Vaccine Aged Out No lo nger eligible based on patient's age to complete this topic MENINGOCOCCAL (MENACTRA/MENVEO) Aged Out No longer eligible based on patient's age to complete this topic documented as of this encounter Medical Devices Implanted Type Area Assistant Professor Of Philosophy Device Identifier Shelf Expiration Date Model / Serial / Lot Graft Hemashld [id number] - [id number] Implanted:Qty : 1 on 12/09/2013 at OR [facility] N/A: Aorta [employer] 10/11/2017 [id number] / / [id number] Drain Glcm Brvldt [facility] Imnpl - [id number] - [id number] Implanted:Qty : 1 on 10/19/2020 by Sheryl Narayanan MD at OR [facility] Left: Eye [employer] [id number] 04/20/2022 LD897-871 / [id number] / LOT NA Graft Platinum Cornea Split - [id number] - [id number] Implanted:Qty : 1 on 10/19/2020 by Sheryl Narayanan MD at OR [facility] Left: Eye [employer] 03/13/2022 HCO-HH1 / [id number] / [id number] Drain Glcm Brvldt Tami Imnpl - [id number] - [id number] Implanted:Qty : 1 on 12/03/2021 by Sheryl Narayanan MD at OR [facility] Left: Eye [employer] [id number] 01/11/2023 XI796-882 / [id number] / LOT NA Graft Platinum Cornea Split - [id number] - [id number] Implanted:Qty : 1 on 12/03/2021 by Sheryl Narayanan MD at OR [facility] Left: Eye [employer] 09/04/2023 HCO-HH1 / [id number] / [id number] documented as of this encounter Advance [...] of Attor luis m? No Care Teams Manager Tax Relationship Specialty Start Date End Date Charles Jarrett MD [address] [place] [address] PCP - General Internal Medicine 10/25/19 documented as of this encounter
--- OUTSIDE RECORDS SUMMARY | 2024-04-15 13:25 | External Medical Summary | Summary of Care ---
Author Name Unknown Organization [facility] Address [address] [place] [address] Phone [phone] Care Team Providers Care Industrial Health And Safety Professor Name Role Phone Charles Jarrett MD Primary Care Provider [phone] Reason for Visit * Reason Onset Date Comments Advice 11/24/2023 Encounter Details Date Type Department Care Team (Late st Contact Info) Description 11/24/2023 Telephone General Surgery, [place] [address] [place] [address] Nils Moore MD [address] [place] [address] Advice Allergies Active Allergy Reactions [...] by mouth twice daily. Active Nystatin (NYSTOP) 511822 UNIT/GM powder Apply topically to affected area [...] encounter Miscellaneous Notes * Telephone Encounter - Jazlyn Morrissey OSA [...] 12/16/2023 3:06 PM EDT Hospital Encounter [place] [facility], OPERATING ROOM [facility], [facility] [address] [place] [address] Nils Moore MD [address] [place] [address] 12/16/2023 3:06 PM EDT - 12/16/2023 5:10 PM EDT Surgery OR [facility], OPERATING ROOM [facility], [facility] [address] [place] [address] Nils Moore MD [address] [place], [place] [address] REVISION OF COLOSTOMY SIMPLE 12/29/2023 11:30 AM EDT Office Visit Dermatology [address] [address] Lizabeth Shah MD [address] [place] [address] 01/07/2024 1:30 PM EDT Office Visit General Internal Medicine, [facility] [address] [place], [place] [phone] Charles Jarrett MD [address] [place], [place] [address] 01/07/2024 3:30 PM EDT Office Visit General Surgery, [place] [address] [place] [address] Edwige Forrest PA-C [address] [place], [place] [address] 03/29/2024 2:30 PM EST Office Visit General Surgery, [place] [address] [place] [address] Cipriano Wyatt, DO [address] [place] [address] 04/30/2024 1:30 PM EST Office Visit Cardiology, [facility] [address] [place] [address] Mayo Cedillo, DO [address] [place] [address] Scheduled Procedures Name Priority Associated Diagnoses Date/Ti me REVISION OF COLOSTOMY SIMPLE History of creation of ostomy (HCC) 12/16/2023 3:06 PM EDT Health Maintenance Due Date Last Done Comments DTaP,Tdap,and Td Vaccines (1 - Tdap) 1956 Zoster Vaccines (1 of 2) 1987 Adult Wellness Visit 2003 Pneumococcal Vaccine: 65+ Years (2 of 2 - PCV) 03/31/2004 03/31/2003 COVID-19 Vaccine (3 - season) 2022 08/03/2020, 07/06/2020 Influenza Vaccine (FLU shot) (#1) 2023 01/01/2023, 01/26/2022, 01/30/2021, Additional history exists Albumin/Creatinine Ratio 01/02/2024 01/01/2023, 11/12 CKD HGB USE SMARTSET 46774 05/19/202405/19, 05/19/2023, 01/01/2023, Additional history exists CKD PHOS USE SMARTSET 18331 07/20/2024 0411/2023, 07/05/2022, 12/26/2021, Additional history exists Colonoscopy Discontinued 12/15/2013, 06/2010, 11/14/2010, Additional history exists HPV (Gardasil) Vaccine Aged Out No lo nger eligible based on patient's age to complete this topic MENINGOCOCCAL (MENACTRA/MENVEO) Aged Out No longer eligible based on patient's age to complete this topic documented as of this encounter Medical Devices Implanted Type Area Brain Picker Device Identifier Shelf Expiration Date Model / Serial / Lot Graft Hemashld [id number] - [id number] Implanted:Qty : 1 on 12/09/2013 at [place] [facility] N/A: Aorta [employer] 10/11/2017 [id number] / / [id number] Drain Glcm Brvldt [facility] Imnpl - [id number] - [id number] Implanted:Qty : 1 on 10/19/2020 by Sheryl Narayanan MD at [facility] Left: Eye [employer] [id number] 04/20/2022 LG483-129 / [id number] / LOT NA Graft [place] Cornea Split - [id number] - [id number] Implanted:Qty : 1 on 10/19/2020 by Sheryl Narayanan MD at OR [facility] Left: Eye [employer] 03/13/2022 HCO-HH1 / [id number] / [id number] Drain [facility] - [id number] - [id number] Implanted:Qty : 1 on 12/03/2021 by Sheryl Narayanan MD at OR [facility] Left: Eye [employer] [id number] 01/11/2023 VH022-344 / [id number] / LOT NA Graft [place] Cornea Split - [id number] - [id number] Implanted:Qty : 1 on 12/03/2021 by Sheryl Narayanan MD at OR [facility] Left: Eye [employer] 09/04/2023 HCO-HH1 / [id number] / [id number] documented as of this encounter Advance [...] of Attor luis m? No Care Teams Industrial Health And Safety Professor Relationship Specialty Start Date End Date Charles Jarrett MD [address] [place] [address] PCP - General Internal Medicine 10/25/19 documented as of this encounter
--- OUTSIDE RECORDS SUMMARY | 2024-04-15 13:25 | External Medical Summary | Summary of Care ---
Author Name Unknown Organization [facility] Address [address] [place] [address] Phone [phone] Care Team Providers Care Fabric Designer Name Role Phone Charles Jarrett MD Primary Care Provider [phone] Reason for Visit * Reason Comments Follow Up Patient here for a s kin check. Hx MIS and ATN. He has several spots of concern. Encounter Details Date Type Department Care Team (Late st Contact Info) Description 12/19/2023 2:30 PM EDT Office Visit Dermatology [facility] [address] [place] [address] Lizabeth Shah MD [address] [place] [address] Skin neoplasm*; Seborrheic keratoses; History of [...] by mouth twice daily. Active Nystatin (NYSTOP) 262433 UNIT/GM powder Apply topically to affected area [...] 88 year old male who presents with [facility] non- melanoma skin cancer and melanoma [...] tablet by mouth twice daily. Nystatin (NYSTOP) 408521 UNIT/GM powder Apply topically to affected area [...] Office Visit General Internal Medicine, [facility] [address] [place], [place] [phone] Charles Jarrett MD [address] [place], [place] [address] 01/30/2024 7:30 AM EDT Hospital Encounter [place] [facility], OPERATING ROOM [facility] [address] [place] [address] Nils Moore MD [facility] [address] [place], [place] [address] 01/30/2024 7:30 AM EDT - 01/30/2024 9:34 AM EDT Surgery OR [facility], OPERATING ROOM [facility] [address] [place] [address] Nils Moore MD [address] [place], [place] [address] REVISION OF COLOSTOMY SIMPLE 02/18/2024 3:30 PM EST Office Visit [facility] [address] [place], [place] [address] Edwige Forrest PA-C [address] [place] [address] 03/29/2024 2:30 PM EST Office Visit General Surgery, [place] [address] [place] [address] Cipriano Wyatt DO [address] [place] [address] 04/30/2024 1:30 PM EST Office Visit Cardiology, [facility] [address] [facility] [address] Mayo Cedillo, DO [address] [place] [address] Pending Results Name Type Priority Associated Diagnoses [...] 01/02/2024 01/01/2023, 11/12 CKD HGB USE SMARTSET 08257 05/19/202405/19, 05/19/2023, 01/01/2023, Additional history exists CKD PHOS USE SMARTSET 39697 07/20/2024 04/0 11/2023, 07/05/2022, 12/26/2021, Additional history exists Colonoscopy Discontinued 12/15/2013, 0 06/2010, 11/14/2010, Additional history exists HPV (Gardasil) Vaccine Aged Out No lo nger eligible based on patient's age to complete this topic MENINGOCOCCAL (MENACTRA/MENVEO) Aged Out No longer eligible based on patient's age to complete this topic documented as of this encounter Medical Devices Implanted Type Area Clasp Machine Operator Device Identifier Shelf Expiration Date Model / Serial / Lot Graft Hemashld [id number] - [id number] Implanted:Qty : 1 on 12/09/2013 at OR [facility] N/A: Aorta [employer] 10/11/2017 [id number] / / [id number] Drain Glcm Brvldt [facility] Ac Imnpl - [id number] - [id number] Implanted:Qty : 1 on 10/19/2020 by Sheryl Narayanan MD at OR [facility] Left: Eye [employer] [id number] 04/20/2022 YD179-574 / [id number] / LOT NA Graft [place] Cornea Split - [id number] - [id number] Implanted:Qty : 1 on 10/19/2020 by Sheryl Narayanan MD at OR [facility] Left: Eye [employer] 03/13/2022 HCO-HH1 / [id number] / [id number] Drain Glcm Brvldt Tami Imnpl - [id number] - [id number] Implanted:Qty : 1 on 12/03/2021 by Sheryl Narayanan MD at OR [facility] Left: Eye [employer] [id number] 01/11/2023 WA974-329 / [id number] / LOT NA Graft [place] Cornea Split - [id number] - [id number] Implanted:Qty : 1 on 12/03/2021 by Sheryl Narayanan MD at OR [facility] Left: Eye [employer] 09/04/2023 HCO-HH1 / [id number] / [id number] documented as of this encounter Visit [...] of Attor luis m? No Care Teams Fabric Designer Relationship Specialty Start Date End Date Charles Jarrett MD [address] [place] [address] PCP - General Internal Medicine 10/25/19 documented as of this encounter
--- OUTSIDE RECORDS SUMMARY | 2024-04-15 13:25 | External Medical Summary | Summary of Care ---
Author Name Unknown Organization [facility] Address [address] [place] [address] Phone [phone] Care Team Providers Care Cosmetologist Apprentice Name Role Phone Charles Jarrett MD Primary Care Provider [phone] Reason for Visit * Reason Comments Follow Up Patient here for a s kin check. Hx MIS and ATN. He has several spots of concern. Encounter Details Date Type Department Care Team (Late st Contact Info) Description 12/19/2023 2:30 PM EDT Office Visit Dermatology [facility] [address] [place] [address] Lizabeth Shah MD [address] [place] [address] Skin neoplasm*; Seborrheic keratoses; History of [...] by mouth twice daily. Active Nystatin (NYSTOP) 389779 UNIT/GM powder Apply topically to affected area [...] 88 year old male who presents with [facility] non- melanoma skin cancer and [...] tablet by mouth twice daily. Nystatin (NYSTOP) 079387 UNIT/GM powder Apply topically to affected area [...] PM EDT Office Visit General Internal Medicine, [facility] [address] [place], [place] [phone] Charles Jarrett MD [address] [place], [place] [address] 01/30/2024 7:30 AM EDT Hospital Encounter [place] [facility], OPERATING ROOM [facility] [address] [place] [phone] Nils Moore MD [facility] [address] [place], [place] [address] 01/30/2024 7:30 AM EDT - 01/30/2024 9:34 AM EDT Surgery OR [facility], OPERATING ROOM [facility] [address] [place] [address] Nils Moore MD [address] [place], [place] [phone] REVISION OF COLOSTOMY SIMPLE 02/18/2024 3:30 PM EST Office Visit [facility] [address] [place], [place] [phone] Edwige Forrest PA-C [address] [place] [address] 03/29/2024 2:30 PM EST Office Visit General Surgery, [facility] [address] [place] [address] Cipriano Wyatt DO [address] [place] [address] 04/30/2024 1:30 PM EST Office Visit Cardiology, [facility] [address] [facility] [address] Mayo Cedillo, DO [address] [place] [address] Pending Results Name Type Priority Associated Diagnoses [...] 01/02/2024 01/01/2023, 11/12 CKD HGB USE SMARTSET 08877 05/19/202405/19, 05/19/2023, 01/01/2023, Additional history exists CKD PHOS USE SMARTSET 95644 07/20/2024 04/0 11/2023, 07/05/2022, 12/26/2021, Additional history exists Colonoscopy Discontinued 12/15/2013, 0 06/2010, 11/14/2010, Additional history exists HPV (Gardasil) Vaccine Aged Out No lo nger eligible based on patient's age to complete this topic MENINGOCOCCAL (MENACTRA/MENVEO) Aged Out No longer eligible based on patient's age to complete this topic documented as of this encounter Medical Devices Implanted Type Area Metal Loader Device Identifier Shelf Expiration Date Model / Serial / Lot Graft Hemashld [id number] - [id number] Implanted:Qty : 1 on 12/09/2013 at OR [facility] N/A: Aorta [employer] 10/11/2017 [id number] / / [id number] Drain Glcm Brvldt Tami Ac Imnpl - [id number] - [id number] Implanted:Qty : 1 on 10/19/2020 by Sheryl Narayanan MD at OR [facility] Left: Eye [employer] [id number] 04/20/2022 DJ197-081 / [id number] / LOT NA Graft [employer] Cornea Split - [id number] - [id number] Implanted:Qty : 1 on 10/19/2020 by Sheryl Narayanan MD at OR [facility] Left: Eye [employer] 03/13/2022 HCO-HH1 / [id number] / [id number] Drain Glcm Brvldt [facility]ami Imnpl - [id number] - [id number] Implanted:Qty : 1 on 12/03/2021 by Sheryl Narayanan MD at OR [facility] Left: Eye [employer] [id number] 01/11/2023 QL563-743 / [id number] / LOT NA Graft [employer] Cornea Split - [id number] - [id number] Implanted:Qty : 1 on 12/03/2021 by Sheryl Narayanan MD at OR [facility] Left: Eye [employer]IONS [employer] 09/04/2023 HCO-HH1 / [id number] / [id number] documented as of this encounter Visit [...] of Attor luis m? No Care Teams Cosmetologist Apprentice Relationship Specialty Start Date End Date Charles Jarrett MD [address] [place] [address] PCP - General Internal Medicine 10/25/19 documented as of this encounter
--- OUTSIDE RECORDS SUMMARY | 2024-04-15 13:25 | External Medical Summary | Summary of Care ---
Author Name Unknown Organization [facility] Address [address] [place] [address] Phone [phone] Care Team Providers Care Vac Press Operator Name Role Phone Charles Jarrett MD Primary Care Provider [phone] Reason for Visit * Reason Onset Date Comments Advice 11/24/2023 Encounter Details Date Type Department Care Team (Late st Contact Info) Description 11/24/2023 Telephone General Surgery, [place] [address] [place] [address] Nils Moore MD [address] [place] [address] Advice Allergies Active Allergy Reactions [...] by mouth twice daily. Active Nystatin (NYSTOP) 756601 UNIT/GM powder Apply topically to affected area [...] because he has a neighbor urologist in [place] who recommended against it unless PSA rises [...] Encounter - Naida Cid LPN - 11/26/2023 9:42 AM EDT Patient calling back into the office and he left me know that he would like to push his procedure out to January. I offered him 01/30/2024 and he accepted the date. * Telephone Encounter - Naida Cid LPN [...] EDT Hospital Encounter [place] [facility], OPERATING ROOM [facility] [address] [place] [phone] Nils Moore MD [address] [place], [place] [address] 12/16/2023 3:06 PM EDT - 12/16/2023 5:10 PM EDT Surgery OR [facility], OPERATING ROOM [facility] [address] [place] [address] Nils Moore MD [address] [place], [place] [address] REVISION OF COLOSTOMY SIMPLE 12/29/2023 11:30 AM EDT Office Visit Dermatology [address] [address] Lizabeth Shah MD [address] [place] [address] 01/07/2024 1:30 PM EDT Office Visit General Internal Medicine, [facility] [address] [place], [place] [phone] Charles Jarrett MD [address] [place] [address] 01/07/2024 3:30 PM EDT Office Visit General Surgery, [place] [address] [place], [place] [address] Edwige Forrest PA-C [address] [place], [place] [address] 03/29/2024 2:30 PM EST Office Visit General Surgery, [place] [address] [place], [place] [phone] Cipriano Wyatt DO [address] [place], [place] [address] 04/30/2024 1:30 PM EST Office Visit Cardiology, [facility] [address] [facility] [place] [address] Mayo Cedillo, [address] [facility] [place] [address] Scheduled Procedures Name Priority Associated Diagnoses Date/Ti [...] 01/02/2024 01/01/2023, 11/12 CKD HGB USE SMARTSET 10187 05/19/202405/19, 05/19/2023, 01/01/2023, Additional history exists CKD PHOS USE SMARTSET 51864 07/20/[address]240 11/2023, 07/05/2022, 12/26/2021, Additional history exists Colonoscopy Discontinued 12/15/2013, 06/2010, 11/14/2010, Additional history exists HPV (Gardasil) Vaccine Aged Out No lo nger eligible based on patient's age to complete this topic MENINGOCOCCAL (MENACTRA/MENVEO) Aged Out No longer eligible based on patient's age to complete this topic documented as of this encounter Medical Devices Implanted Type Area Range Rider Device Identifier Shelf Expiration Date Model / Serial / Lot Graft Hemashld [id number] - [id number] Implanted:Qty : 1 on 12/09/2013 at OR [facility] N/A: Aorta [employer] 10/11/2017 [id number] / / [id number] Drain Glcm Brvldt Tami Ac Imnpl - [id number] - [id number] Implanted:Qty : 1 on 10/19/2020 by Sheryl Narayanan MD at OR [facility] Left: Eye [employer] [id number] 04/20/2022 NW381-551 / [id number] / LOT NA Graft [place] Cornea Split - [id number] - [id number] Implanted:Qty : 1 on 10/19/2020 by Sheryl Narayanan MD at OR [facility] Left: Eye [employer] 03/13/2022 HCO-HH1 / [id number] / [id number] Drain Glcm Brvldt Tami Ac Imnpl - [id number] - [id number] Implanted:Qty : 1 on 12/03/2021 by Sheryl Narayanan MD at OR [facility] Left: Eye [employer] [id number] 01/11/2023 RC163-632 / [id number] / LOT NA Graft [place] Cornea Split - [id number] - [id number] Implanted:Qty : 1 on 12/03/2021 by Sheryl Narayanan MD at OR [facility] Left: Eye [employer]IL[employer] V[employer]IFT 09/04/2023 [facility] / [id number] / [id number] documented as of this encounter Advance [...] of Attor luis m? No Care Teams Vac Press Operator Relationship Specialty Start Date End Date Charles Jarrett MD [address] [place] [address] PCP - General Internal Medicine 10/25/19 documented as of this encounter
--- OUTSIDE RECORDS SUMMARY | 2024-04-15 13:26 | External Medical Summary | Summary of Care ---
Author Name Unknown Organization [facility] Address [address] [place] [address] Phone [phone] Care Team Providers Care Manager Safe Name Role Phone Charles Jarrett MD Primary Care Provider [phone] Reason for Visit * Reason Onset Date Comments Appointment 11/13/2023 Reschedule appoi ntment Encounter Details Date Type Department Care Team (Late st Contact Info) Description 11/13/2023 Telephone Dermatology [facility] [address] [place] [address] Services, Scheduling [address] [place] [address] Appointment (Reschedule appointment ) Allergies Active Allergy Reactions Criticality Noted Date Comments Proparacaine Hcl Other (Please comment) 016 sensitivity per pt- causes itching, irritation to eyelids Aspirin Low 11/09/2012 Nose bleed; CAN tolerate NSAIDs documented as of this encounter (statuses as of 11/13/2023) Medications Medication Sig Dispensed Refills Start Date End Date Status Ascorbic Acid (VITAMIN C) 1000 MG Tablet 1 tablet by mouth twice daily. Active Nystatin (NYSTOP) 171826 UNIT/GM powder Apply topically to affected area [...] as of this encounter (statuses as of 11/13/2023) Active Problems Problem Noted Date Diagnosed Date [...] as of this encounter (statuses as of 11/13/2023) Resolved Problems Problem Noted Date Diagnosed Date [...] as of this encounter (statuses as of 11/13/2023) Immunizations Name Administration Dates Next Due COVID-19 [...] encounter Miscellaneous Notes * Telephone Encounter - Veronica Roque OSA - 11/13/2023 12:59 PM EDT Patient called in to reschedule his cancelled 01/01 appointment. He cannot do the 12/24 that is on hold for the reschedules. He only wants to see Dr Shah and will not wait until NA into next year. Please contact patient to discuss other options for scheduling without waiting Thanks documented in this encounter Plan of Treatment Upcoming Encounters Date Type Department Care Team (Late st Contact Info) Description 12/16/2023 3:06 PM EDT Hospital Encounter [facility] [address] [place] [address] Nils Moore MD [address] [place] [address] 12/16/2023 3:06 PM EDT - 12/16/2023 5:10 PM EDT Surgery [facility] [address] [place] [address] Nils Moore MD [address] [place] [address] REVISION OF COLOSTOMY SIMPLE 01/07/2024 1:30 PM EDT Office Visit General Internal Medicine, [facility] [address] [place] [address] Charles Jarrett MD [address] [place] [address] 01/07/2024 3:30 PM EDT Office Visit General Surgery, [place] [address], [place] [address] Edwige Forrest PA-C [address] [place] [address] 03/29/2024 2:30 PM EST Office Visit General Surgery, [place] [address] [place] [address] Cipriano Wyatt DO [address] [place] [address] 04/30/2024 1:30 PM EST Office Visit Cardiology, [facility] [address] [facility] [place] [address] Mayo Cedillo, DO [address] [facility] [place] [address] Scheduled Procedures Name Priority Associated Diagnoses Date/Ti me REVISION OF COLOSTOMY SIMPLE History of creation of ostomy (HCC) 12/16/2023 3:06 PM EDT Health Maintenance Due Date Last Done Comments DTaP,Tdap,and Td Vaccines (1 - Tdap) 1956 Zoster Vaccines (1 of 2) 1987 Pneumococcal Vaccine: 65+ Years (2 of 2 - PCV) 03/31/2004 03/31/2003 COVID-19 Vaccine (3 - 2022-24 season) 2022 08/03/2020, 07/06/2020 Influenza Vaccine (FLU shot) (#1) 2023 01/01/2023, 01/26/2022, 01/30/2021, Additional history exists Albumin/Creatinine Ratio 01/02/2024 01/01/2023, 11/12 CKD HGB USE SMARTSET 16989 05/19/202405/19, 05/19/2023, 01/01/2023, Additional history exists CKD PHOS USE SMARTSET 69510 07/20/2024 0411/2023, 07/05/2022, 12/26/2021, Additional history exists Colonoscopy Discontinued 12/15/2013, 06/2010, 11/14/2010, Additional history exists HPV (Gardasil) Vaccine Aged Out No lo nger eligible based on patient's age to complete this topic MENINGOCOCCAL (MENACTRA/MENVEO) Aged Out No longer eligible based on patient's age to complete this topic documented as of this encounter Medical Devices Implanted Type Area Security Sme Device Identifier Shelf Expiration Date Model / Serial / Lot Graft Hemashld [id number] - [id number] Implanted:Qty : 1 on 12/09/2013 [place] [facility] [place]A: Aorta Red e App 10/11/2017 [id number] / / [id number] Drain Glcm Brvldt [facility] Imnp - [id number] - [id number] Implanted:Qty : 1 on 10/19/2020 by Sheryl Narayanan MD at [facility] Left: Eye [employer] [id number] 04/20/2022 [id number] / [id number] / LOT NA Graft [place] Cornea Split - [id number] - [id number] Implanted:Qty : 1 on 10/19/2020 by Sheryl Narayanan MD at [facility] Left: Eye [employer] 03/13/2022 HCO-HH1 / [id number] / [id number] Drain Glcm Brvldt [facility] Imnp - [id number] - [id number] Implanted:Qty : 1 on 12/03/2021 by Sheryl Narayanan MD at [facility] Left: Eye [employer] [id number] 01/11/2023 BV716-407 / [id number] / LOT NA Graft [place] Cornea Split - [id number] - [id number] Implanted:Qty : 1 on 12/03/2021 by Sheryl Narayanan MD at [facility] Left: Eye [employer] 09/04/2023 HCO-HH1 / [id number] / [id number] documented as of this encounter Advance [...] Attor luis m? No Care Teams Manager Safe Relationship Specialty Start Date End Date Charles Jarrett MD [address] [place] [address] PCP - General Internal Medicine 10/25/19 documented as of this encounter
--- OUTSIDE RECORDS SUMMARY | 2024-04-15 13:26 | External Medical Summary | Summary of Care ---
Author Name Unknown Organization [facility] Address [address] [place] [address] Phone [phone] Care Team Providers Care Warning Analyst Name Role Phone Charles Jarrett MD Primary Care Provider [phone] Encounter Details Date Type Department Care Team (Late st Contact Info) Description 08/08/2023 Telephone [facility] [address] [place] [address] Tevin Ryan, Janna Power MD [address] [place] [address] Allergies Active Allergy Reactions Criticality Noted Date Comments Proparacaine Hcl Other (Please comment) 016 sensitivity per pt- causes itching, irritation to eyelids Aspirin Low 11/09/2012 Nose bleed; CAN tolerate NSAIDs documented as of this encounter (statuses as of 11/07/2023) Medications Medication Sig Dispensed Refills Start Date End Date Status Ascorbic Acid (VITAMIN C) 1000 MG Tablet 1 tablet by mouth twice daily. Active Nystatin (NYSTOP) 787643 UNIT/GM powder Apply topically to affected area [...] each evening 90 Capsule 3 10/07/2022 10/15/19 24 Discontinued documented as of this encounter (statuses as of 11/07/2023) Active Problems Problem Noted Date Diagnosed Date [...] as of this encounter (statuses as of 11/07/2023) Resolved Problems Problem Noted Date Diagnosed Date [...] as of this encounter (statuses as of 11/07/2023) Immunizations Name Administration Dates Next Due COVID-19 [...] encounter Miscellaneous Notes * Telephone Encounter - Thu Sanford OSA - 08/08/2023 11:34 AM EDT Return in about 6 months (around 02/07/2024) for IOP check. Could someone help me schedule this. 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 [address] [place] [address] Nils Moore MD [address] [place], [place] [address] 12/16/2023 3:06 PM EDT - 12/16/2023 5:10 PM EDT Surgery OR [facility], OPERATING ROOM [facility] [address] [place] [address] Nils Moore MD [address] [place] [address] REVISION OF COLOSTOMY SIMPLE 01/02/2024 11:00 AM EDT Office Visit Dermatology [facility] [address] [place] [address] Lizabeth Shah MD [address] [place] [address] 01/07/2024 1:30 PM EDT Office Visit General Internal Medicine, [facility] [address] [place] [address] Charles Jarrett MD [address] [place] [address] 01/07/2024 3:30 PM EDT Office Visit General Surgery, [place] [address] [place] [address] Edwige Forrest PA-C [address] [place] [address] 03/29/2024 2:30 PM EST Office Visit General Surgery, [place] [address] [place] [address] Cipriano Wyatt DO [address] [place] [address] 04/30/2024 1:30 PM EST Office Visit Cardiology, [facility] [address] [facility] [place] [address] Mayo Cedillo, DO 132 [facility] [place] [address] Scheduled Procedures Name Priority Associated Diagnoses Date/Ti [...] 01/02/2024 01/01/2023, 11/12 CKD HGB USE SMARTSET 25281 05/19/202405/19, 05/19/2023, 01/01/2023, Additional history exists CKD PHOS USE SMARTSET 96006 07/20/202411/2023, 07/05/2022, 12/26/2021, Additional history exists Colonoscopy Discontinued 12/15/2013, 06/2010, 11/14/2010, Additional history exists HPV (Gardasil) Vaccine Aged Out No lo nger eligible based on patient's age to complete this topic MENINGOCOCCAL (MENACTRA/MENVEO) Aged Out No longer eligible based on patient's age to complete this topic documented as of this encounter Medical Devices Implanted Type Area Wall And Floor Tiler Device Identifier Shelf Expiration Date Model / Serial / Lot Graft Jorge Carter18mm [id number] - [id number] Implanted:Qty : 1 on 12/09/[address] [facility] N/A: Aorta ParentPlus 10/11/2017 [id number] / / [id number] Drain Glcm Brvldt [employer] - [id number] - [id number] Implanted:Qty : 1 on 10/19/2020 by Sheryl Narayanan MD at [facility] Left: Eye [employer] [id number] 04/20/2022 VX613-385 / [id number] / LOT NA Graft [place] Cornea Split - [id number] - [id number] Implanted:Qty : 1 on 10/19/2020 by Sheryl Narayanan MD at [facility] Left: Eye [employer] 03/13/2022 HCO-HH1 / [id number] / [id number] Drain Glcm Brvldt [employer] - [id number] - [id number] Implanted:Qty : 1 on 12/03/2021 by Sheryl Narayanan MD at [facility] Left: Eye [employer] [id number] 01/11/2023 [id number] / [id number] / LOT NA Graft [place] Cornea Split - [id number] - [id number] Implanted:Qty : 1 on 12/03/2021 by Sheryl Narayanan MD at [facility] Left: Eye [employer] 09/04/2023 HCO-HH1 / [id number] / [id number] documented as of this encounter Advance [...] of Attor luis m? No Care Teams Warning Analyst Relationship Specialty Start Date End Date Charles Jarrett MD [address] [facility] [address] PCP - General Internal Medicine 10/25/19 documented as of this encounter
--- OUTSIDE RECORDS SUMMARY | 2024-04-15 13:26 | External Medical Summary | Summary of Care ---
Author Name Unknown Organization [facility] Address [address] [place] [address] Phone [phone] Care Team Providers Care Thread Tool Grinder Set Up Operator Name Role Phone Charles Jarrett MD Primary Care Provider [phone] Encounter Details Date Type Department Care Team (Late st Contact Info) Description 07/25/2023 Telephone Nephrology, [address] [address] Anshul Sinha MD [address] [place] [address] Allergies Active Allergy Reactions Criticality Noted Date Comments Proparacaine Hcl Other (Please comment) 016 sensitivity per pt- causes itching, irritation to eyelids Aspirin Low 11/09/2012 Nose bleed; CAN tolerate NSAIDs documented as of this encounter (statuses as of 10/24/2023) Medications Medication Sig Dispensed Refills Start Date End Date Status Ascorbic Acid (VITAMIN C) 1000 MG Tablet 1 tablet by mouth twice daily. Active Nystatin (NYSTOP) 888365 UNIT/GM powder Apply topically to affected area [...] as of this encounter (statuses as of 10/24/2023) Active Problems Problem Noted Date Diagnosed Date Spinal stenosis of lumbar re gion without [...] because he has a neighbor urologist in [place] who recommended against it unless PSA rises [...] as of this encounter (statuses as of 10/24/2023) Resolved Problems Problem Noted Date Diagnosed Date [...] as of this encounter (statuses as of 10/24/2023) Immunizations Name Administration Dates Next Due COVID-19 [...] encounter Miscellaneous Notes * Telephone Encounter - Kelly Dee LPN - 07/25/2023 11:25 AM EDT Please see 24 hour BP monotor reports scanned to chart documented in this encounter Plan of Treatment Upcoming Encounters Date Type Department Care Team (Late st Contact Info) Description 01/02/2024 11:00 AM EDT Office Visit Dermatology [address] [address] Lizabeth Shah MD [address] [place] [address] 01/07/2024 1:30 PM EDT Office Visit General Internal Medicine, [facility] [address] [place], [place] [address] Charles Jarrett MD [address] [place], [place] [address] 03/29/2024 2:30 PM EST Office Visit General Surgery, [place] [address] [place] [address] Cipriano Wyatt DO [address] [place] [address] 04/30/2024 1:30 PM EST Office Visit Cardiology, [facility] [address] [place] [address] Mayo Cedillo DO [address] [place] [address] Health Maintenance Due Date Last Done Comments DTaP,Tdap,and Td Vaccines (1 - Tdap) 1954 Zoster Vaccines (1 of 2) 1987 Pneumococcal Vaccine: 65+ Years (2 of 2 - PCV) 03/31/2004 03/31/2003 COVID-19 Vaccine (3 - season) 2022 08/03/2020, 07/06/2020 Influenza Vaccine (FLU shot) (#1) 2023 01/01/2023, 01/26/2022, 01/30/2021, Additional history exists Albumin/Creatinine Ratio 01/02/2024 01/01/2023, 11/12 CKD HGB USE SMARTSET 37558 05/19/202405/19, 05/19/2023, 01/01/2023, Additional history exists CKD PHOS USE SMARTSET 42536 07/20/202411/2023, 07/05/2022, 12/26/2021, Additional history exists Colonoscopy Discontinued 12/15/2013, 06/2010, 11/14/2010, Additional history exists HPV (Gardasil) Vaccine Aged Out No lo nger eligible based on patient's age to complete this topic MENINGOCOCCAL (MENACTRA/MENVEO) Aged Out No longer eligible based on patient's age to complete this topic documented as of this encounter Medical Devices Implanted Type Area Applied Behavior Specialist Device Identifier Shelf Expiration Date Model / Serial / Lot Graft Jorge Griderit18mm [id number] - [id number] Implanted:Qty : 1 on 12/09/2013 at [place] [facility] N/A: Aorta Fisoc 10/11/2017 [id number] / / [id number] Drain Glcm Brvldt [employer] - [id number] - [id number] Implanted:Qty : 1 on 10/19/2020 by Sheryl Narayanan MD at [facility] Left: Eye [employer] [id number] 04/20/2022 UA644-077 / [id number] / LOT NA Graft [place] Cornea Split - [id number] - [id number] Implanted:Qty : 1 on 10/19/2020 by Sheryl Narayanan MD at [facility] Left: Eye [employer] 03/13/2022 HCO-HH1 / [id number] / [id number] Drain Glcm Brvldt [facility] Imnpl - [id number] - [id number] Implanted:Qty : 1 on 12/03/2021 by Sheryl Narayanan MD at [facility] Left: Eye [employer] [id number] 01/11/2023 DR132-335 / [id number] / LOT NA Graft [place] Cornea Split - [id number] - [id number] Implanted:Qty : 1 on 12/03/2021 by Sheryl Narayanan MD at [facility] Left: Eye [employer] 09/04/2023 HCO-HH1 / [id number] / [id number] documented as of this encounter Advance [...] of Attor luis m? No Care Teams Thread Tool Grinder Set Up Operator Relationship Specialty Start Date End Date Charles Jarrett MD [address] [place] [address] PCP - General Internal Medicine 10/25/19 documented as of this encounter
--- OUTSIDE RECORDS SUMMARY | 2024-04-15 13:26 | External Medical Summary | Summary of Care ---
Author Name Unknown Organization [facility] Address [address] [place] [address] Phone [phone] Care Team Providers Care Head Of English Name Role Phone Charles Jarrett MD Primary Care Provider [phone] Reason for Visit * Reason Onset Date Comments Surgery 11/07/2023 Encounter Details Date Type Department Care Team (Late st Contact Info) Description 11/07/2023 Telephone General Surgery, [place] [address] [place] [address] Services, [facility] [address] [place] [address] Surgery Allergies Active Allergy Reactions Criticality Noted Date [...] by mouth twice daily. Active Nystatin (NYSTOP) 742012 UNIT/GM powder Apply topically to affected area [...] encounter Miscellaneous Notes * Telephone Encounter - Juana Orellana OSA - 11/07/2023 9:34 AM EDT Pt has an upcoming surgery with Dr. Moore on 12/15. Pt states that he was offered a date in mid-Novemberand is wondering if that is still available? Please contact pt documented in this encounter Plan of Treatment Upcoming Encounters Date Type Department Care Team (Late st Contact Info) Description 12/16/2023 3:06 PM EDT Hospital En[place] [facility] [facility] [facility] [address] [place] [address] Nils Moore MD [address] [place] [address] 12/16/2023 3:06 PM EDT - 12/16/2023 5:10 PM EDT Surgery [place] [facility] [facility] [place] [address] [place] [address] Nils Moore MD [address] [place] [address] REVISION OF COLOSTOMY SIMPLE 01/02/2024 11:00 AM EDT Office Visit Dermatology [facility] [address] [place] [address] Lizabeth Shah MD [address] [place] [address] 01/07/2024 1:30 PM EDT Office Visit General Internal Medicine, [facility] [address] [place] [address] Charles Jarrett MD [address] [place] [address] 01/07/2024 3:30 PM EDT Office Visit General Surgery, [place] [address] [place] [address] Edwige Forrest PA-C [address] [place] [address] 03/29/2024 2:30 PM EST Office Visit General Surgery, [place] [address] [place] [address] Cipriano Wyatt DO [address] [place] [address] 04/30/2024 1:30 PM EST Office Visit Cardiology, [facility] [address] [place] [address] Mayo Cedillo DO [address] [facility] [place] [address] Scheduled Procedures Name Priority Associated Diagnoses Date/Ti me REVISION OF COLOSTOMY SIMPLE History of creation of ostomy (HCC) 12/16/2023 3:06 PM EDT Health Maintenance Due Date Last Done Comments DTaP,Tdap,and Td Vaccines (1 - Tdap) 1954 Zoster Vaccines (1 of 2) 1987 Pneumococcal Vaccine: 65+ Years (2 of 2 - PCV) 03/31/2004 03/31/2003 COVID-19 Vaccine ( season) 2022 08/03/2020, 07/06/2020 Influenza Vaccine (FLU shot) (#1) 2023 01/01/2023, 01/26/2022, 01/30/2021, Additional history exists Albumin/Creatinine Ratio 01/02/2024 01/01/2023, 11/12 CKD HGB USE SMARTSET 61142 05/19/202405/19, 05/19/2023, 01/01/2023, Additional history exists CKD PHOS USE SMARTSET 87676 07/20/2024 040 11/2023, 07/05/2022, 12/26/2021, Additional history exists Colonoscopy Discontinued 12/15/2013, 0806/2010, 11/14/2010, Additional history exists HPV (Gardasil) Vaccine Aged Out No lo nger eligible based on patient's age to complete this topic MENINGOCOCCAL (MENACTRA/MENVEO) Aged Out No longer eligible based on patient's age to complete this topic documented as of this encounter Medical Devices Implanted Type Area Graphite Grinder Device Identifier Shelf Expiration Date Model / Serial / Lot Graft Hemashld [id number] - [id number] Implanted:Qty : 1 on 12/09/2013 [place] [facility] [place]A: Aorta FAGUO 10/11/2017 [id number] / / [id number] Drain Glcm Brvldt [employer] - [id number] - [id number] Implanted:Qty : 1 on 10/19/2020 by Sheryl Narayanan MD at [facility] Left: Eye [employer] [id number] 04/20/2022 JK168-886 / [id number] / LOT NA Graft [place] Cornea Split - [id number] - [id number] Implanted:Qty : 1 on 10/19/2020 by Sheryl Narayanan MD at [facility] Left: Eye [employer] 03/13/2022 HCO-HH1 / [id number] / [id number] Drain Glcm Brvldt T[employer] Imnpl - [id number] - [id number] Implanted:Qty : 1 on 12/03/2021 by hSeryl Narayanan MD at [facility] Left: Eye [employer] [id number] 01/11/2023 FP226-034 / [id number] / LOT NA Graft [place] Cornea Split - [id number] - [id number] Implanted:Qty : 1 on 12/03/2021 by Sheryl Narayanan MD at [facility] Left: Eye [employer] 09/04/2023 O-1 / [id number] / [id number] documented as of this encounter Advance [...] of Attor luis m? No Care Teams Head Of English Relationship Specialty Start Date End Date Charles Jarrett MD [address] [place] [address] PCP - General Internal Medicine 10/25/19 documented as of this encounter
--- OUTSIDE RECORDS SUMMARY | 2024-04-15 13:26 | External Medical Summary | Summary of Care ---
Author Name Unknown Organization [facility] Address [address] [place] [address] Phone [phone] Care Team Providers Care Online Banking Specialist Name Role Phone Charles Jarrett MD Primary Care Provider [phone] Reason for Visit * Reason Onset Date Comments Surgery 11/07/2023 Encounter Details Date Type Department Care Team (Late st Contact Info) Description 11/07/2023 Telephone General Surgery, [facility] [address] [place] [address] Services, [facility] [address] [place] [address] Surgery Allergies Active Allergy Reactions Criticality Noted [...] by mouth twice daily. Active Nystatin (NYSTOP) 194180 UNIT/GM powder Apply topically to affected area [...] because he has a neighbor urologist in [place] who recommended against it unless PSA rises [...] Telephone Encounter - Naida Cid LPN - 11/07/2023 9:51 AM EDT Returned call to patient and made him aware that we don't have any openings in November. He said ok I'll keep the 12/16/2023 surgery. * Telephone Encounter - Juana Orellana OSA [...] EDT Hospital Encounter [facility], OPERATING ROOM [facility] [place] [facility] [address] [place] [address] Nils Moore MD [address] [place] [address] 12/16/2023 3:06 PM EDT - 12/16/2023 5:10 PM EDT Surgery [place] [facility] [place] OPERATING ROOM [facility] [place] [address] [place] [address] Nils Moore MD [address] [place] [address] REVISION OF COLOSTOMY SIMPLE 01/02/2024 11:00 AM EDT Office Visit Dermatology [facility] [address] [place] [address] Lizabeth Shah MD [address] [place] [address] 01/07/2024 1:30 PM EDT Office Visit General Internal Medicine, [facility] [address] [place] [address] Charles Jarrett MD [address] [place] [address] 01/07/2024 3:30 PM EDT Office Visit General Surgery, [facility] [address] [place] [address] Edwige Forrest, W[place] [address] [place] [address] 03/29/2024 2:30 PM EST Office Visit General Surgery, [facility] [address] [place] [address] Cipriano Wyatt DO [address] [place] [address] 04/30/2024 1:30 PM EST Office Visit Cardiology, [facility] [address] [facility] [place], [place] [id number] Mayo Cedillo, [address] [place] [address] Scheduled Procedures Name Priority Associated Diagnoses Date/Ti [...] 01/02/2024 01/01/2023, 11/12 CKD HGB USE SMARTSET 71528 05/19/202405/19, 05/19/2023, 01/01/2023, Additional history exists CKD PHOS USE SMARTSET 13471 07/20/202411/2023, 07/05/2022, 12/26/2021, Additional history exists Colonoscopy Discontinued 12/15/2013, 06/2010, 11/14/2010, Additional history exists HPV (Gardasil) Vaccine Aged Out No lo nger eligible based on patient's age to complete this topic MENINGOCOCCAL (MENACTRA/MENVEO) Aged Out No longer eligible based on patient's age to complete this topic documented as of this encounter Medical Devices Implanted Type Area Creative Writer Device Identifier Shelf Expiration Date Model / Serial / Lot Graft Hemashld [id number] - [id number] Implanted:Qty : 1 on 12/09/2013 at [place] [facility] [place] N/A: Aorta [employer] 10/11/2017 [id number] / / [id number] Drain Glcm Brvldt Tami Ac Imnpl - [id number] - [id number] Implanted:Qty : 1 on 10/19/2020 by Sheryl Narayanan MD at [facility] Left: Eye [employer] [id number] 04/20/2022 [id number] / [id number] / LOT NA Graft [place] Cornea Split - [id number] - [id number] Implanted:Qty : 1 on 10/19/2020 by Sheryl Narayanan MD at OR [facility] Left: Eye [employer] 03/13/2022 HCO-HH1 / [id number] / [id number] Drain Glcm Brvldt Tami Ac Imnpl - [id number] - [id number] Implanted:Qty : 1 on 12/03/2021 by Sheryl Narayanan MD at OR [facility] Left: Eye [employer] [id number] 01/11/2023 [id number] / [id number] / LOT NA Graft [place] Cornea Split - [id number] - [id number] Implanted:Qty : 1 on 12/03/2021 by Sheryl Narayanan MD at OR [facility] Left: Eye [employer] 09/04/2023 HCO-1 / [id number] / [id number] documented as of this encounter Advance [...] of Attor luis m? No Care Teams Online Banking Specialist Relationship Specialty Start Date End Date Charles Jarrett MD [address] [place] [address] PCP - General Internal Medicine 10/25/19 documented as of this encounter
--- OUTSIDE RECORDS SUMMARY | 2024-04-15 13:26 | External Medical Summary | Summary of Care ---
Author Name Unknown Organization [facility] Address [address] [place] [address] Phone [phone] Care Team Providers Care Woodworking Machine Operator Name Role Phone Charles Jarrett MD Primary Care Provider [phone] Reason for Visit * Reason Onset Date Comments Appointment 11/13/2023 Reschedule appoi ntment Encounter Details Date Type Department Care Team (Late st Contact Info) Description 11/13/2023 Telephone Dermatology [facility] [address] [place] [address] Services, Scheduling [address] [place] [address] Appointment (Reschedule appointment ) Allergies Active Allergy Reactions Criticality Noted Date Comments Proparacaine Hcl Other (Please comment) 016 sensitivity per pt- causes itching, irritation to eyelids Aspirin Low 11/09/2012 Nose bleed; CAN tolerate NSAIDs documented as of this encounter (statuses as of 11/17/2023) Medications Medication Sig Dispensed Refills Start Date End Date Status Ascorbic Acid (VITAMIN C) 1000 MG Tablet 1 tablet by mouth twice daily. Active Nystatin (NYSTOP) 960181 UNIT/GM powder Apply topically to affected area [...] as of this encounter (statuses as of 11/17/2023) Active Problems Problem Noted Date Diagnosed Date [...] because he has a neighbor urologist in [place] who recommended against it unless PSA rises [...] as of this encounter (statuses as of 11/17/2023) Resolved Problems Problem Noted Date Diagnosed Date [...] as of this encounter (statuses as of 11/17/2023) Immunizations Name Administration Dates Next Due COVID-19 [...] encounter Miscellaneous Notes * Telephone Encounter - Sindy Phelan OSA - 11/17/2023 10:14 AM EDT Could not reach patient by phone. Patient is scheduled and a letter has been sent. When responding, please reply to the [facility] [place] Pool [[id number]]. Thanks! LEONEL Reece * Telephone Encounter - Veronica Roque OSA [...] 12/16/2023 3:06 PM EDT Hospital Encounter [place] [facility] [place], OPERATING ROOM [facility] [address] [place] [facility] [place] [place] [address] Nils Moore MD [address] [place] [address] 12/16/2023 3:06 PM EDT - 12/16/2023 5:10 PM EDT Surgery OR [facility], OPERATING ROOM [facility] [place] [place] [facility] [address] [place] [address] Nils Moore MD [address], [place] [phone] REVISION OF COLOSTOMY SIMPLE 12/29/2023 11:30 AM EDT Office Visit Dermatology [address] [address] Lizabeth Shah MD [address] [place] [address] 01/07/2024 1:30 PM EDT Office Visit General Internal Medicine, [facility] [address] [place], [place] [phone] Charles Jarrett MD [address] [place] [address] 01/07/2024 3:30 PM EDT Office Visit General Surgery, [facility] [address], [place] [phone] Edwige Forrest PA-C [address] [place], [place] [address] 03/29/2024 2:30 PM EST Office Visit General Surgery, [facility] [address] [place], [place] [phone] Cipriano Wyatt DO [address], [place] [address] 04/30/2024 1:30 PM EST Office Visit Cardiology, [facility] [address] [place] [address] Mayo Cedillo, [address] [place] [address] Scheduled Procedures Name Priority Associated Diagnoses Date/Ti [...] 01/02/2024 01/01/2023, 11/12 CKD HGB USE SMARTSET 09203 05/19/202405/19, 05/19/2023, 01/01/2023, Additional history exists CKD PHOS USE SMARTSET 67103 07/20/2024 040 11/2023, 07/05/2022, 12/26/2021, Additional history exists Colonoscopy Discontinued 12/15/2013, 06/2010, 11/14/2010, Additional history exists HPV (Gardasil) Vaccine Aged Out No lo nger eligible based on patient's age to complete this topic MENINGOCOCCAL (MENACTRA/MENVEO) Aged Out No longer eligible based on patient's age to complete this topic documented as of this encounter Medical Devices Implanted Type Area Pupil Personnel Worker Device Identifier Shelf Expiration Date Model / Serial / Lot Graft Jorge Griderit18mm [id number] - [id number] Implanted:Qty : 1 on 12/09/2013 at OR [facility] N/A: Aorta [employer] 10/11/2017 [id number] / / [id number] Drain Glcm Brvldt [facility] Imnpl - [id number] - [id number] Implanted:Qty : 1 on 10/19/2020 by Sheryl Narayanan MD at [facility] Left: Eye [employer] [id number] 04/20/2022 ZQ895-239 / [id number] / LOT NA Graft [place] Cornea Split - [id number] - [id number] Implanted:Qty : 1 on 10/19/2020 by Sheryl Narayanan MD at [facility] Left: Eye [employer] 03/13/2022 HCO-HH1 / [id number] / [id number] Drain Glcm Brvldt [facility] Imnpl - [id number] - [id number] Implanted:Qty : 1 on 12/03/2021 by Sheryl Narayanan MD at [facility] Left: Eye [facility] [employer] [employer] [id number] 01/11/2023 GL501-899 / [id number] / LOT NA Graft [place] Cornea Split - [id number] - [id number] Implanted:Qty : 1 on 12/03/2021 by Sheryl Narayanan MD at [facility] Left: Eye [employer] 09/04/2023 HCO-HH1 / [id number] / [id number] documented as of this encounter Advance [...] patient have Health Care Power of Attor lius m? No * Full Code Date Activated Date Inactivated Comments 01/15/2014 10:06 PM 01/19/2014 9:26 PM This order reflects the patients wishes and were consensually agreed upon. Question Answer Comments Discussion of Advance Directives occurred with: Not Discussed Does the patient have a Living Will? No Does the patient have Health Care Power of Attor luis m? No Care Teams Woodworking Machine Operator Relationship Specialty Start Date End Date Charles Jarrett MD [address] [place] [address] PCP - General Internal Medicine 10/25/19 documented as of this encounter
--- OUTSIDE RECORDS SUMMARY | 2024-04-15 13:26 | External Medical Summary | Summary of Care ---
Author Name Unknown Organization [facility] Address [address] [place] [address] Phone [phone] Care Team Providers Care Senior Operations Manager Name Role Phone Charles Jarrett MD Primary Care Provider [phone] Reason for Visit * Reason Comments Follow Up Encounter Details Date Type Department Care Team (Late st Contact Info) Description 11/05/2023 11:00 AM EDT Nurse Only General Surgery, [place] [address], [place] [address] A6, Wound Ostomy Nurse [address] [place], [place] [address] Follow Up Allergies Active Allergy Reactions Criticality Noted Date Comments Proparacaine Hcl Other (Please comment) 016 sensitivity per pt- causes itching, irritation to eyelids Aspirin Low 11/09/2012 Nose bleed; CAN tolerate NSAIDs documented as of this encounter (statuses as of 11/05/2023) Medications Medication Sig Dispensed Refills Start Date End Date Status Ascorbic Acid (VITAMIN C) 1000 MG Tablet 1 tablet by mouth twice daily. Active Nystatin (NYSTOP) 361428 UNIT/GM powder Apply topically to affected area [...] as of this encounter (statuses as of 11/05/2023) Active Problems Problem Noted Date Diagnosed Date [...] because he has a neighbor urologist in [place] who recommended against it unless PSA rises [...] as of this encounter (statuses as of 11/05/2023) Resolved Problems Problem Noted Date Diagnosed Date [...] as of this encounter (statuses as of 11/05/2023) Immunizations Name Administration Dates Next Due COVID-19 [...] as of this encounter Progress Notes * Giuseppe Brizuela RN - 11/05/2023 12:50 PM EDT Seen for colostomy prolapse Pouching removed from colostomy large prolapse with mucosal changes at distal aspect intact yellow tissue, no surrounding erythema, no discoloration to stoma. Nelson uses a disposable pouch and changes the pouching 2-[address] Heredia in to assess stoma. Transferred to exam table Stoma able to be reduced with us of sugarand manipulation. Reapplied moldable oval shaped wafer/2 3/4" closed end pouch. Plan for local revision of stoma Instructed Nelson on s/s of stomal ischemia. Verbalized understanding documented in this encounter Plan of Treatment Upcoming Encounters Date Type Department Care Team (Late st Contact Info) Description 12/16/2023 3:06 PM EDT Hospital Encounter OR [facility], OPERATING ROOM [facility] [place] [address] [place] [address] Nils Moore MD [address] [place] [address] 12/16/2023 3:06 PM EDT - 12/16/2023 5:10 PM EDT Surgery OR [facility], OPERATING ROOM [facility] [place] [address] [place] [address] Nils Moore MD [address] [place] [address] REVISION OF COLOSTOMY SIMPLE 01/02/2024 11:00 AM EDT Office Visit Dermatology [facility] [address] [place] [address] Lizabeth Shah MD [address] [place] [address] 01/07/2024 1:30 PM EDT Office Visit General Internal Medicine, [facility] [address] [place] [address] Charles Jarrett MD [address] [place] [address] 01/07/2024 3:30 PM EDT Office Visit General Surgery, [place] [address] [place] [address] Edwige Forrest PA-C [address] [place] [address] 03/29/2024 2:30 PM EST Office Visit General Surgery, [facility] [address] [place] [address] Cipriano Wyatt DO [address] [place] [address] 04/30/2024 1:30 PM EST Office Visit Cardiology, [facility] [address] [place] [address] Mayo Cedillo, DO [address] [place] [address] Scheduled Procedures Name Priority Associated Diagnoses Date/Ti [...] 01/02/2024 01/01/2023, 11/12 CKD HGB USE SMARTSET 06249 05/19/202405/19, 05/19/2023, 01/01/2023, Additional history exists CKD PHOS USE SMARTSET 17023 07/20/2024 0411/2023, 07/05/2022, 12/26/2021, Additional history exists Colonoscopy Discontinued 12/15/2013, 06/2010, 11/14/2010, Additional history exists HPV (Gardasil) Vaccine Aged Out No lo nger eligible based on patient's age to complete this topic MENINGOCOCCAL (MENACTRA/MENVEO) Aged Out No longer eligible based on patient's age to complete this topic documented as of this encounter Medical Devices Implanted Type Area Material Hauler Device Identifier Shelf Expiration Date Model / Serial / Lot Graft Hemashld [id number] - [id number] Implanted:Qty : 1 on 12/09/2013 at OR [facility] N/A: Aorta [facility] 10/11/2017 [id number] / / [id number] Drain Glcm Brvldt Tami [employer] - [id number] - [id number] Implanted:Qty : 1 on 10/19/2020 by Sheryl Narayanan MD at [facility] Left: Eye [employer] [id number] 04/20/2022 [id number] / [id number] / LOT NA Graft Tensed Cornea Split - [id number] - [id number] Implanted:Qty : 1 on 10/19/2020 by Sheryl Narayanan MD at [facility] Left: Eye [employer] 03/13/2022 HCO-HH1 / [id number] / [id number] Drain Glcm Brvldt Tami Ac Imnpl - [id number] - [id number] Implanted:Qty : 1 on 12/03/2021 by Sheryl Narayanan MD at [facility] Left: Eye [facility] [employer] [id number] 01/11/2023 HW795-856 / [id number] / LOT NA Graft Tensed Cornea Split - [id number] - [id number] Implanted:Qty : 1 on 12/03/2021 by hSeryl Narayanan MD at OR [facility] Left: Eye [employer] 09/04/2023 HCO-1 / [id number] / [id number] documented as of this encounter Visit Diagnoses Diagnosis History of creation of ostomy (HCC)- Primary History of creation of ostomy (HCC)- Primary History of creation of ostomy (HCC) [...] of Attor luis m? No Care Teams Senior Operations Manager Relationship Specialty Start Date End Date Charles Jarrett MD [address] [place] [address] PCP - General Internal Medicine 10/25/19 documented as of this encounter
--- OUTSIDE RECORDS SUMMARY | 2024-04-15 13:26 | External Medical Summary | Summary of Care ---
Author Name Unknown Organization [facility] Address [address] [place] [address] Phone [phone] Care Team Providers Care Summer School Coordinator Name Role Phone Charles Jarrett MD Primary Care Provider [phone] Reason for Visit * Reason Comments Follow Up Encounter Details Date Type Department Care Team (Late st Contact Info) Description 11/05/2023 11:00 AM EDT Nurse Only General Surgery, [place] [address], [place] [phone] A6, Wound Ostomy Nurse [address], [place] [phone] Follow Up Allergies Active Allergy Reactions Criticality [...] by mouth twice daily. 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 He has an extensive surgical history as detailed below with resultant end transverse colostomy. He has been experiencing prolapse for the last few months and most recently has had prolapse that he was unable to reduce manually. Patient states he is not interested in having any major operative intervention for his stoma that would require laparotomy. 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 This was mild and not a concern. In the descending colon there was one or two areas of a 2-3 mm dark mucosal spot not felt to be transmural. This is consistent with very mild ischemic colitis. Impression: - Mucosal ulceration. Recommendation: - Return patient to hospital [facility] for ongoing care. Solitario Garcia MD Review of Systems: A 12 point review [...] by Sheryl Narayanan MD at [place] [facility] EXPLORATION OF ABDOMEN N/A 08/16/2014 EXPLORATORY LAPAROTOMY performed by Argentina Dumont MD at OR [facility] INJECTION OF EYE DRUG 01/18/13 Lucentis #23 [...] by Brian Allen MD at RADIOLOGY [facility] INSERT AQUEOUS SHUNT, EXTERNAL APPROACH Left 10/19/2020 INSERTION AQUEOUS ANTERIOR DRAINAGE DEVICE W/O EXTRAOCULAR RESERVOIR performed by Sheryl Narayanan MD at OR [facility] IR DRAINAGE ABSCESS/SPECIMEN W CATHETER PLACEMENT 08/31/2014 RADIOLOGICAL GUIDANCE FOR ABSCESS DRAINAGE performed by Yandel Gonzalez MD at RADIOLOGY [facility] VIVIEN FLEX SIGMOID DIAGNOSITIC 12/15/2013 SIGMOIDOSCOPY FLEXIBLE DIAGNOSTIC performed by Solitario Garcia MD at ENDOSCOPY [facility] LASER TRABECULOPLASTY Bilateral 2014 Dr [place], [place] LASER TRABECULOPLASTY Left 07/25/15 SLT OS RANIBIZUMAB [...] IO SOLN 12/25/10 Injection # 5 OD (Vrabec) RANIBIZUMAB 0.5 MG/0.05ML IO SOLN 02/11/11 Injection #6 OD (Vrabec) RANIBIZUMAB 0.5 MG/0.05ML IO SOLN 03/18/2011 Injection # 7 (13) OD (Vrabec) RANIBIZUMAB 0.5 MG/0.05ML IO SOLN 08/27/11 lucentis (16) [place] RANIBIZUMAB 0.5 MG/0.05ML IO SOLN 10/24/11 lucenitis [...] by Brian Allen MD at RADIOLOGY [facility] REMOVAL OF SMALL INTESTINE W/FUSION N/A 08/16/2014 ENTERECTOMY SMALL BOWEL RESECTION performed by Argentina Dumont MD at OR [facility] REPAIR/GRAFT SCLERAL LESION Left 10/19/2020 REPAIR SCLERAL STAPHYLOMA WITH GRAFT performed by Sheryl Narayanan MD at OR [facility] REPAIR/GRAFT SCLERAL LESION Left 12/03/2021 REPAIR SCLERAL STAPHYLOMA WITH GRAFT performed by Sheryl Narayanan MD at OR [facility] RUP ANEUR AORTA INVOL RENAL,ME 12/09/2013 REPAIR ANEURYSM ABDOMINAL AORTA VISCERAL RUPTURED performed by Bishop Bianchi MD at OR [facility] Current Outpatient Medications Medication Sig Dispense Refill Ascorbic Acid (VITAMIN C) 1000 MG Tablet 1 tablet by mouth twice daily. Nystatin (NYSTOP) 655199 UNIT/GM powder Apply topically to affected area [...] date: 02/11/1947 Quit date: 02/11/2010 Years since quittin.7 Passive exposure: Past Smokeless tobacco: Never Tobacco [...] in august Drug use: No Physical Examination: General: alert and oriented, answers questions appropriately Neuro: AxO x3 CV: no JVD Lung: symmetrical chest rise, nonlabored breathing Abdomen: soft, nontender, nondistended, LLQ colostomy edematous and prolapsed, punctate mucosal ischemic changes with beefy red mucosa underneath; reduced with manual pressure Extremities: no edema Integument: warm, dry 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 Plan: -discussed with patient surgical options including stoma reversal and local stoma revision -patient states he is not interested in having any major abdominal surgery but that he would be interested in local revision if possible; should the surgery be unable to be performed safely without alaparotomy incision, the patient would not want to have an operation to fix the prolapse -discussed with patient that he should ideally have a colonoscopy prior to revision, but he is not interested in any surgical intervention even if a mass or cancer is found -informed consent obtained from patient for local stoma revision. Risks discussed including recurrent prolapse, pouching problems, risk of proceeding without colonoscopy, complications from anesthesia -counseled patient on reasons to present to the ED including incarcerated prolapsed stoma and obstructive symptoms Nadeen Heredia DO Colorectal Surgery Fellow * Giuseppe Brizuela RN - 11/05/2023 12:50 [...] EDT Hospital Encounter OR C, OPERATING ROOM [facility] [address] [place] [phone] Nils Moore MD [address] [place], [place] [phone] 12/16/2023 3:06 PM EDT - 12/16/2023 5:10 PM EDT Surgery OR [facility], OPERATING ROOM [facility] [address] [place] [phone] Nils Moore MD [address] [place] [address] REVISION OF COLOSTOMY SIMPLE 01/02/2024 11:00 AM EDT Office Visit Dermatology [facility] [place] [address] [facility] [place], [place] [phone] Lizabeth Shah MD [address] [place] [address] 01/07/2024 1:30 PM EDT Office Visit General Internal Medicine, [facility] [address], [place] [phone] Charles Jarrett MD [address] [place] [address] 01/07/2024 3:30 PM EDT Office Visit General Surgery, [place] [address], [place] [phone] Edwige Forrest PA-C [address], [place] [phone] 03/29/2024 2:30 PM EST Office Visit General Surgery, [place] [address] [place] [address] Cipriano Wyatt DO [address], [place] [phone] 04/30/2024 1:30 PM EST Office Visit Cardiology, [facility] [address] [facility] [place] [address] Mayo Cedillo DO [address] [facility] [address] Scheduled Procedures Name Priority Associated Diagnoses Date/Ti [...] 01/02/2024 01/01/2023, 11/12 CKD HGB USE SMARTSET 41384 05/19/202405/19, 05/19/2023, 01/01/2023, Additional history exists CKD PHOS USE SMARTSET 07703 07/20/202411/2023, 07/05/2022, 12/26/2021, Additional history exists Colonoscopy Discontinued 12/15/2013, 06/2010, 11/14/2010, Additional history exists HPV (Gardasil) Vaccine Aged Out No lo nger eligible based on patient's age to complete this topic MENINGOCOCCAL (MENACTRA/MENVEO) Aged Out No longer eligible based on patient's age to complete this topic documented as of this encounter Medical Devices Implanted Type Area Digester Operator Helper Device Identifier Shelf Expiration Date Model / Serial / Lot Graft Hemashld [id number] - [id number] Implanted:Qty : 1 on 12/09/2013 at OR [facility] N/A: Aorta Tradition Midstream 10/11/2017 [id number] / / [id number] Drain Glcm Brvldt Tami Ac Imnpl - [id number] - [id number] Implanted:Qty : 1 on 10/19/2020 by Sheryl Narayanan MD at [facility] Left: Eye [employer] [id number] 04/20/2022 [id number] / [id number] / LOT NA Graft [place] Cornea Split - [id number] - [id number] Implanted:Qty : 1 on 10/19/2020 by Sheryl Narayanan MD at OR [facility] Left: Eye [employer] 03/13/2022 HCO-HH1 / [id number] / [id number] Drain Glcm Brvldt Tami Ac Imnpl - [id number] - [id number] Implanted:Qty : 1 on 12/03/2021 by Sheryl Narayanan MD at OR [facility] Left: Eye [employer] [id number] 01/11/2023 [id number] / [id number] / LOT NA Graft [place] Cornea Split - [id number] - [id number] Implanted:Qty : 1 on 12/03/2021 by Sheryl Narayanan MD at [facility] Left: Eye [employer] 09/04/2023 HCO-HH1 / [id number] / [id number] documented as of this encounter Visit [...] of Attor luis m? No Care Teams Summer School Coordinator Relationship Specialty Start Date End Date Charles Jarrett MD [address] [place] [address] PCP - General Internal Medicine 10/25/19 documented as of this encounter
[2024-04-15] MEDS: PANTOprazole 80 MG in DEXTROSE 5% 100 ML IV ONE (13:33)
[2024-04-15] MEDS: PANTOprazole 40 MG in DEXTROSE 5% MINI-B 100 ML IV SCH (13:53)
[2024-04-15] MEDS: PANTOPRAZOLE BOLUS/DRIP IV STA (15:18)
[2024-04-15] MEDS ORDERED: SODIUM CHLORIDE 0.9% 50 ML IV PRN (17:31)
[2024-04-15] MEDS ORDERED: PROMETHAZINE 6.25 MG/50.25 ML BAG IV PRN (17:31)
[2024-04-15] MEDS ORDERED: POLYETHYLENE (MIRALAX) 17 GM PACK PO PRN (17:31)
[2024-04-15] MEDS ORDERED: SODIUM CHLORIDE 0.9% 100 ML IV PRN (17:31)
[2024-04-15] MEDS: SODIUM CHLORIDE 0.9% 1,000 ML IV SCH (17:53)
[2024-04-15 18:31] LABS: Hematocrit (blood only) 31.7 % (42.0-52.0); Hemoglobin 10.5 g/dl (14.0-18.0)
[2024-04-15] MEDS: TAMSULOSIN HCL 0.4 MG CAP PO SCH (21:04)
[2024-04-15] MEDS: LORATADINE 10 MG TAB PO SCH (21:04)
[2024-04-15] MEDS: dilTIAZem HCL 180 MG CAPCR PO SCH (21:04)
[2024-04-16] MEDS: traZODone HCL 50 MG TAB PO PRN (02:03)
[2024-04-16 07:03] LABS: Hematocrit (blood only) 31.4 % (42.0-52.0); Hemoglobin 10.2 g/dl (14.0-18.0); Mean Corpuscular Hemoglobin 31.4 pg (25.0-34.0); Mean Corpuscular Hgb Conc 32.5 g/dL (32.0-36.0); Mean Corpuscular Volume 96.6 fL (80.0-100.0); Platelet Count 119 K/uL (130-400); RDW Coefficient of Variation 15.3 % (11.5-14.5); RDW Standard Deviation 54.6 fL (36.4-46.3); Red Blood Count 3.25 M/uL (4.70-6.10); White Blood Count 4.57 K/ul (4.8-10.8)
[2024-04-16 07:13] LABS: BUN Creatinine Ratio 14.9 (10-20); Calcium 8.4 mg/dl (8.6-10.3); Creatinine Clr Calc Pharmacy 39.3 ml/min; Potassium 3.4 mmol/L (3.5-5.1)
[2024-04-16] MEDS: ESCITALOPRAM OXALATE 10 MG TAB PO SCH (08:27)
[2024-04-16] MEDS: ACETAMINOPHEN 325 MG TAB PO PRN (09:02)
--- NOTE | 2024-04-16 09:08 | Hospitalist Progress Note ---
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 4 days ago started with red blood filling his ostomy bag x 3 episodes with since blood mixed with stool. 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 Biopsied. Injected. Clip was placed. 09/03/23 [place], ulcerated mass, biopsy: Ulcerated granulation tissue and inflamed adenoma. Comment: The history of a mass is noted. The vast majority of the specimen consists of ulcerated granulation tissue. One fragment of inflamed adenoma is noted. No diagnostic adenocarcinoma is identified In ER afebrile, vital stable. No leukocytosis. H/H: . (Hgb: 10 on discharge on 09/07/2023). BUN: 30, Cr: 1.65 In ER given Protonix bolus and drip Currently no apparent bright red blood in ostomy bag. H&H and vitals stable. Monitor H&H Type and cross PRBC's. Hold for now. Blood consent was obtained Continue Protonix IV NPO for now GI consult CBC, BMP in am 04/16/2023 Hgb 10.2, 11 yesterday Seen by GI this AM - Discussed options, risks & benefits with patient. While he is certain he wants no further colorectal surgeries moving forward, he does feel it may be beneficial to investigate the source of bleeding with a repeat colonoscopy. Given it's Friday and he's unprepped, would begin a bowel prep this morning with plans to drink as much as he can and then stop drinking at noon. Will add 2 doses of Dulcolax as well. Keep NPO and proceed with colonoscopy this afternoon. (5) CKD (chronic kidney disease), stage III: Plan: Cr: 1.65. 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 Will hold zaleplon DVT Prophylaxis SCDs Admit med/tele Full Code as per discussion with pt, however reports would not want prolonged ventilation Follows with Dr Charles Jarrett for routine care Admission and Anticipated Discharge Date Admission Date: April 15, 2024 Subjective Pt seen in follow up of GI bleed Currently sitting up in bed in NAD Denies any discomfort, no abd. pain Says he has not eaten anything for 2 days d/t bleed, but now he has no visible output in colostomy bag Seen by GI this AM and plan for colostomy Review of Systems Review of Systems: All systems reviewed & are unremarkable except as noted in Subjective Physical Exam Physical Exam: General: no acute distress, WDWN, pleasant elderly male Head: normocephalic, atraumatic Eyes: conjunctiva non-injected, anicteric ENT: normal inspection external ears, nose Neck: supple Lungs: clear, no respiratory distress, no wheezing/rhonchi/rales CV: RRR, no murmur, no pretibial edema Abd: +healed surgical incisions, +ventral hernia, +ostomy left abdomen, currently ostomy bag without noted blood or stool, soft, non-tender to palpation Ext: moves extremities Neuro: A&O x 3, no focal deficits noted, normal affect Skin: warm, dry Results & Data Results & Data Vital Signs (Past 12 Hours) Vital Signs Temp Pulse Pulse Resp BP BP Pulse Ox 04/16/24 07:46 36.8 C 78 20 160/84 H 94 04/16/24 07:41 65 04/16/24 07:32 04/16/24 01:53 36.9 C 72 16 157/85 H 92 04/15/24 23:36 04/15/24 22:43 36.5 C 82 16 177/97 H 94 04/15/24 21:55 79 O2 Del Method 04/16/24 07:46 Room Air 04/16/24 07:41 04/16/24 07:32 Room Air 04/16/24 01:53 Room Air 04/15/24 23:36 Room Air 04/15/24 22:43 Room Air 04/15/24 21:55 Laboratory Results 04/16/24 04/15/24 04/15/24 Range/Units 06:19 18:08 11:06 WBC 4.57 L 5.58 (4.8-10.8) K/ul RBC 3.25 L 3.47 L (4.70-6.10) M/uL Hgb 10.2 L 10.5 L 11.0 L (14.0-18.0) g/dl Hct 31.4 L 31.7 L 33.0 L (42.0-52.0) % MCV 96.6 95.1 (80.0-100.0) fL MCH 31.4 31.7 (25.0-34.0) pg MCHC 32.5 33.3 (32.0-36.0) g/dL RDW Std Deviation 54.6 H 53.9 H (36.4-46.3) fL RDW Coeff of Janeth 15.3 H 15.5 H (11.5-14.5) % Plt Count 119 L 130 (130-400) K/uL MPV 11.0 10.9 (9.4-12.4) fL Immature Gran % (Auto) 0.4 % Neut % (Auto) 79.9 % Lymph % (Auto) 9.3 % Bonner % (Auto) 9.1 % Eos % (Auto) 0.9 % Baso % (Auto) 0.4 % Neut # (Auto) 4.46 (1.40-6.50) K/uL Lymph # (Auto) 0.52 L (1.20-3.40) K/uL Bonner # (Auto) 0.51 (0.11-0.59) K/uL Eos # (Auto) 0.05 (0.00-0.50) K/uL Baso # (Auto) 0.02 (0.00-0.20) K/uL Immature Gran # (Auto) 0.02 (0.01-0.20) K/uL PT 11.0 (9.0-12.0) Seconds INR 1.0 (0.9-1.1) APTT 26 (21-31) Seconds PTT Ratio 1.0 Sodium 141 138 (136-145) mmol/L Potassium 3.4 L 3.8 (3.5-5.1) mmol/L Chloride 108 H 106 (98-107) mmol/L Carbon Dioxide 28 24 (21-32) mmol/L Anion Gap 5 8 (3-11) BUN 22 30 H (6-23) mg/dl Creatinine 1.48 H 1.65 H (0.6-1.4) mg/dl Est Cr Clr Drug Dosing 39.3 Not Reportable eGFR 45.79 40.19 BUN/Creatinine Ratio 14.9 18.2 (10-20) Glucose 95 126 H (70-99(Fasting)) mg/dl Calcium 8.4 L 8.8 (8.6-10.3) mg/dl Total Bilirubin 0.5 (0.2-1.0) mg/dl AST 17 (13-39) U/L ALT 10 (7-52) U/L Alkaline Phosphatase 64 (34-104) U/L Total Protein 6.7 (6.0-8.3) gm/dl Albumin 4.1 (3.4-5.0) gm/dl Globulin 2.6 (2.5-4.0) gm/dl Albumin/Globulin Ratio 1.6 (0.9-2) Blood Type O Positive Antibody Screen NEGATIVE Medications Administered Current Inpatient Medications Acetaminophen (Acetaminophen 325 Mg Tab) 650 mg PO Q4H PRN PRN Reason: Pain or Fever Stop: 05/15/24 17:30 Last Admin: 04/16/24 09:02 Dose: 650 mg Diltiazem HCl (Diltiazem Hcl 180 Mg Capcr) 180 mg PO QPM [facility] Stop: 05/15/24 20:59 Last Admin: 04/15/24 21:04 Dose: 180 mg Escitalopram Oxalate (Escitalopram Oxalate 10 Mg Tab) 10 mg PO QAM [facility] Stop: 05/16/24 08:59 Last Admin: 04/16/24 08:27 Dose: 10 mg Pantoprazole Sodium 40 mg/ (Dextrose) 100 mls @ 20 mls/hr IV Q5H [facility] Stop: 05/15/24 12:44 Last Admin: 04/16/24 04:23 Dose: 8 mg/hr, 20 mls/hr Promethazine HCl (Phenergan) 6.25 mg in 50.25 mls @ 201 mls/hr IV Q6H PRN PRN Reason: Nausea And Vomiting Stop: 05/15/24 17:30 Sodium Chloride (Nss) 1,000 mls @ 80 mls/hr IV .[id number] [facility] Stop: 04/16/24 17:30 Last Admin: 04/16/24 06:56 Dose: 80 mls/hr Loratadine (Loratadine 10 Mg Tab) 10 mg PO PM [facility] Stop: 05/15/24 20:59 Last Admin: 04/15/24 21:04 Dose: 10 mg Polyethylene Glycol (Polyethylene (Miralax) 17 Gm Pack) 17 gm PO DAILY PRN PRN Reason: Constipation Stop: 05/15/24 17:30 Tamsulosin HCl (Tamsulosin Hcl 0.4 Mg Cap) 0.4 mg PO QPM [facility] Stop: 05/15/24 20:59 Last Admin: 04/15/24 21:04 Dose: 0.4 mg Trazodone HCl (Trazodone Hcl 50 Mg Tab) 50 mg PO HS PRN PRN Reason: Insomnia Stop: 05/15/24 17:30 Last Admin: 04/16/24 02:04 Dose: 50 mg (1) GI bleed GI bleed type/associated pathology: melena Qualified Code(s): K92.1 - Melena (4) Anemia Anemia type: unspecified type Qualified Code(s): D64.9 - Anemia, unspecified
[2024-04-16] MEDS: POTASSIUM CHLORIDE CRTAB 20 MEQ TABCR PO STA (09:32)
--- NOTE | 2024-04-16 09:57 | Gastrointestinal Consultation ---
Date of Consultation April 16, 2024 Assessment & Plan (1) GI bleed: Discussed options, risks & benefits with patient. While he is certain he wants no further colorectal surgeries moving forward, he does feel it may be beneficial to investigate the source of bleeding with a repeat colonoscopy. Given it's Friday and he's unprepped, would begin a bowel prep this morning with plans to drink as much as he can and then stop drinking at noon. Will add 2 doses of Dulcolax as well. Keep NPO and proceed with colonoscopy this afternoon. Supervising Physician Co-Signing Physician Notes Patient examined at the bedside. He has done fairly well with his GoLytely having drinking at least half. He has relatively clear return at this point with no blood. The patient states he is not interested in surgical intervention he would like to know what the issue is and wishes to pursue colonoscopy. Will proceed today. Risks including bleeding perforation addressed History of Present Illness Reason for Consultation: GI bleeding Attending Physician: Alphonse Bender MD History of Present Illness Patient is an 88 yo male with PMH of HTN, HLD, GERD, BPH, ischemic colitis, ruptured AAA in 2013 requiring emergency repair with subsequent development of an incarcerated ventral hernia. He notes that during his AAA repair he had an area of blood flow that was lost and this resulting in a ongoing abdominal pain post-op. He notes that ultimately he got very sick and presented to the hospital with ischemic bowel and underwent a small bowel resection with anastomoses and left hemicolectomy. In August 2023, he had a colonoscopy with a mass concerning for colon cancer, though pathology was negative. He notes he saw Dr. Kaplan from colorectal surgery who offered surgery though patient declined further bowel surgery. He apparently also offered to repeat a colonoscopy to re-biopsy the area of concern and patient declined. At that time he was asymptomatic. He now presents to [facility] with 4 days of a mix of bright red and dark red blood from his ostomy. He notes this filled multiple ostomy bags requiring frequent changes. He denies any new abdominal pain. H/H 10.2/31.4. INR 1.0. He does not take anticoagulation or even Aspirin. No abdominal imaging. Allergies Allergy/AdvReac Type Severity Reaction Status Date / Time aspirin AdvReac Intermediate NOSE BLEEDS Verified 09/02/23 23:13 EYE NUMBING AGENT AdvReac Intermediate EYE Uncoded 09/02/23 23:13 IRRITATION Home Medications Medication Instructions Recorded Confirmed Type ascorbic acid (vitamin C) 1,000 mg 1 g PO BID 09/02/23 04/15/24 History tablet (Vitamin C) diltiazem HCl 180 mg 180 mg PO QPM 09/02/23 04/15/24 History capsule,extended release 24 hr escitalopram oxalate 10 mg tablet 10 mg PO QAM 09/02/23 04/15/24 History esomeprazole magnesium 20 mg 20 mg PO QAM 09/02/23 04/15/24 History capsule,delayed release loratadine 10 mg tablet (Claritin) 10 mg PO PM 09/02/23 04/15/24 History tamsulosin 0.4 mg capsule 0.4 mg PO QPM 09/02/23 04/15/24 History trazodone 50 mg tablet 50 - 100 mg PO HS PRN Insomnia 09/02/23 04/15/24 History vit C 250 mg-vit E 90 mg-zinc 40 1 tab PO PM 04/15/24 04/15/24 History mg-copper 1 [id number] capsule (PreserVision AREDS-2) zaleplon 10 mg capsule 10 mg PO HS PRN Insomnia 04/15/24 04/15/24 History Patient History Medical History Insomnia Depression BPH (benign prostatic hyperplasia) CKD (chronic kidney disease), stage III Ischemic colitis Peripheral vascular disease CAD (coronary artery disease) Acute kidney injury Nephrolithiasis Renal cyst Hypertension 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 Diverticulosis Acute GI bleeding Surgical History S/P small bowel resection History of bowel resection with colostomy S/P AAA repair Family History Other Cancer Social History Smoking Status: Former smoker Tobacco Type: Cigarettes Hx Alcohol Use: Yes Alcohol type: hard liquor Hx Substance Use: No Preferred Language: Uzbek Communication Ability: Effective Chancellor Required: No Beliefs That Will Affect Care: None Current Living Situation: Spouse Current Living Situation Comment: [facility] Other Information That Helps Us Care for You: No Feels Safe at Home: Yes Safety Concerns: Feels Safe At This Time Assistive Devices: Cane, Glasses and Walker Review of Systems Constitutional: no fever and no chills Respiratory: no cough and no dyspnea Gastrointestinal: + blood in stools; no abdominal pain Physical Exam Constitutional: well developed Gastrointestinal (Abdomen): normal bowel sounds, soft, nontender, no hepatosplenomegaly Psychiatric: Orientation: alert and oriented x 3 Results & Data Vital Signs (Past 12 Hours) Vital Signs Temp Pulse Pulse Resp BP BP Pulse Ox 04/16/24 07:46 36.8 C 78 20 160/84 H 94 04/16/24 07:41 65 04/16/24 07:32 04/16/24 01:53 36.9 C 72 16 157/85 H 92 04/15/24 23:36 04/15/24 22:43 36.5 C 82 16 177/97 H 94 04/15/24 21:55 79 O2 Del Method 04/16/24 07:46 Room Air 04/16/24 07:41 04/16/24 07:32 Room Air 04/16/24 01:53 Room Air 04/15/24 23:36 Room Air 04/15/24 22:43 Room Air 04/15/24 21:55 PG Care Time/CCT Total # of Minutes Spent Total Time Spent with Patient: Total time spent is greater than 50% in coordination of care (as documented) at patient's floor/unit and/or counseling patient: Coding Level of Care Code 41853 INT INP/OBS CARE 3/75MIN Diagnoses GI bleed K92.1 GI bleed type/associated pathology: melena (1) GI bleed GI bleed type/associated pathology: melena Qualified Code(s): K92.1 - Melena
[2024-04-16] MEDS: bisacodyL 5 MG TABEC PO ONE (10:03)
[2024-04-16] MEDS: LAVAGE SOLUTION 4000ML PO SCH (10:21)
--- NOTE | 2024-04-16 10:29 | Anesthesiology Consultation ---
Date of Service April 16, 2024 Assessment & Plan Chart Review Chart Review: Acceptable Risk for Surgery and Patient NOT seen in Pre Admission Testing Consults Requested none ASA ASA4 Proposed Anesthesia Anesthesia Type: MAC History Surgery Operation Date: 04/16/24 16:30 Proposed Procedures p Colonoscopy Dr. Myron Sanches MD Height/Weight Height: 6 ft Weight: 83.1 kg Allergies Allergy/AdvReac Type Severity Reaction Status Date / Time aspirin AdvReac Intermediate NOSE BLEEDS Verified 09/02/23 23:13 EYE NUMBING AGENT AdvReac Intermediate EYE Uncoded 09/02/23 23:13 IRRITATION Medications Home Medications Medication Instructions Recorded Confirmed Last Taken ascorbic acid (vitamin C) 1,000 mg 1 g PO BID 09/02/23 04/15/24 04/15/24 tablet (Vitamin C) diltiazem HCl 180 mg 180 mg PO QPM 09/02/23 04/15/24 04/14/24 capsule,extended release 24 hr escitalopram oxalate 10 mg tablet 10 mg PO QAM 09/02/23 04/15/24 04/15/24 esomeprazole magnesium 20 mg 20 mg PO QAM 09/02/23 04/15/24 04/15/24 capsule,delayed release loratadine 10 mg tablet (Claritin) 10 mg PO PM 09/02/23 04/15/24 04/14/24 tamsulosin 0.4 mg capsule 0.4 mg PO QPM 09/02/23 04/15/24 04/14/24 trazodone 50 mg tablet 50 - 100 mg PO HS PRN Insomnia 09/02/23 04/15/24 04/13/24 vit C 250 mg-vit E 90 mg-zinc 40 1 tab PO PM 04/15/24 04/15/24 04/14/24 mg-copper 1 [id number] capsule (PreserVision AREDS-2) zaleplon 10 mg capsule 10 mg PO HS PRN Insomnia 04/15/24 04/15/24 Unknown Active Medications Generic Name Dose Route Start Last Admin Trade Name Freq PRN Reason Stop Dose Admin Acetaminophen 650 mg 04/15/24 17:31 04/16/24 09:02 Acetaminophen 325 Mg Tab PO 05/15/24 17:30 650 mg Q4H PRN Administration Pain or Fever Diltiazem HCl 180 mg 04/15/24 21:00 04/15/24 21:04 Diltiazem Hcl 180 Mg Capcr PO 05/15/24 20:59 180 mg QPM SANTHOSH Administration Escitalopram Oxalate 10 mg 04/16/24 09:00 04/16/24 08:27 Escitalopram Oxalate 10 Mg Tab PO 05/16/24 08:59 10 mg QAM SANTHOSH Administration Pantoprazole Sodium 40 mg/ 100 mls @ 20 mls/hr 04/15/24 12:45 04/16/24 09:27 Dextrose IV 05/15/24 12:44 8 mg/hr Q5H SANTHOSH 20 mls/hr Administration 8 MG/HR Sodium Chloride 1,000 mls @ 80 mls/hr 04/15/24 17:31 04/16/24 06:56 Nss IV 04/16/24 17:30 80 mls/hr .[id number] SANTHOSH Administration Loratadine 10 mg 04/15/24 21:00 04/15/24 21:04 Loratadine 10 Mg Tab PO 05/15/24 20:59 10 mg PM SANTHOSH Administration Polyethylene Glycol/Electrolytes 16 dose 04/16/24 10:00 04/16/24 10:21 Lavage Solution 4000ml PO 04/16/24 12:00 16 dose TODAY@1000 SANTHOSH Administration Tamsulosin HCl 0.4 mg 04/15/24 21:00 04/15/24 21:04 Tamsulosin Hcl 0.4 Mg Cap PO 05/15/24 20:59 0.4 mg QPM SANTHOSH Administration Trazodone HCl 50 mg 04/15/24 17:31 04/16/24 02:04 Trazodone Hcl 50 Mg Tab PO 05/15/24 17:30 50 mg HS PRN Administration Insomnia Past Medical History Medical History Insomnia Depression BPH (benign prostatic hyperplasia) CKD (chronic kidney disease), stage III Ischemic colitis Peripheral vascular disease CAD (coronary artery disease) Acute kidney injury Nephrolithiasis Renal cyst Hypertension 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 Diverticulosis Acute GI bleeding HLD ASCVD Aorta Anemia Thrombocytopenia Exercise / Class Metabolic Activity III < 4 Walking/Shop/Light housework Past Family History Family History Other Cancer Past Surgical History Surgical History S/P small bowel resection History of bowel resection with colostomy S/P AAA repair Past Anesthesia History No Hx of Anesthesia Complications and No Family Hx of Anesthesia Complications History of PONV No Hx of PONV and No Hx of Motion Sickness Social History Smoking Status: Former smoker Hx Alcohol Use: Yes Alcohol type: hard liquor alcohol intake frequency: 0-2 drinks per day Hx Substance Use: No Physical Exam Vital Signs Last Vital Signs Temp 36.8 C 04/16/24 07:46 Pulse 78 04/16/24 07:46 Resp 20 04/16/24 07:46 BP 160/84 H 04/16/24 07:46 Pulse Ox 94 04/16/24 07:46 O2 Del Method Room Air 04/16/24 07:46 Testing Laboratory Results 04/16/24 06:19 04/16/24 06:19 PT 11.0 Seconds (9.0-12.0) 04/15/24 11:06 INR 1.0 (0.9-1.1) 04/15/24 11:06 APTT 26 Seconds (21-31) 04/15/24 11:06 Blood Type O Positive 04/15/24 11:06 Antibody Screen NEGATIVE 04/15/24 11:06 Electrocardiogram Date: 09/02/23 Findings: + NSR @ (SR @ 94 w/ occas. PVC's;) and + RBBB
[2024-04-16] MEDS ORDERED: ATROPINE SULFATE 0.1 MG/ML 10ML SYR IV PRN ×2 (10:31→14:31)
[2024-04-16] MEDS ORDERED: ePHEDrine sulfate 50 MG/ML AMP IV PRN ×2 (10:31→14:31)
--- NOTE | 2024-04-16 15:00 | GI REPORT ---
[facility] Patient: ARTUR COSTELLO : 1935 Sex at : Male Age: 88 Years Procedure: Colonoscopy Date: 04/16/2024 Attending Physician: Bruce Sanches MD Referring MD: Referred Self Indications: - Lower GI hemorrhage. History of cecal mass not resect Medications: - Monitored Anesthesia Care Complications: - No immediate complications. Estimated Blood Loss: - Estimated blood loss was minimal. Procedure: - The adult colonoscope was introduced through the descending colostomy and advanced to the cecum, identified by the ileocecal valve. - The colonoscopy was performed without difficulty. - The quality of the bowel preparation was good. Findings: - Patient has a prolapsed colostomy in the left upper quadrant. Left hypogastric area. There is a small area of prolapsed mucosa here that had adherent clot. This is visualizable the colostomy site itself. Scope was advanced all the way to the IC valve area where a 5 cm ulcerated mass was present. Most likely representing a colon cancer. No active bleeding identified. Biopsies performed for histology x 5. Impression: - Patient has a prolapsed colostomy in the left upper quadrant. Left hypogastric area. There is a small area of prolapsed mucosa here that had adherent clot. This is visualizable the colostomy site itself. Scope was advanced all the way to the IC valve area where a 5 cm ulcerated mass was present. Most likely representing a colon cancer. No active bleeding identified. Biopsies performed for histology x 5. - No specimens collected. - Colon cancer, ischemia not excluded. Prolapsing mucosa at the ostomy site potential source for bleed Recommendation: - Await pathology results. Procedure Code(s): - 37806, Colonoscopy through stoma; diagnostic, including collection of specimen(s) by brushing or washing, when performed (separate procedure) CPT(R) - 2023 copyright [employer]. All Rights Reserved. The CPT codes, CCI edits and ICD codes generated are intended as suggestions and were generated based on input data. These codes are preliminary and upon liquor gallery operator review may be revised to meet current compliance and payer requirements. The provider is responsible for the final determination of appropriate codes, and modifiers. Bruce Sanches MD This document has been electronically signed. Note Initiated:04/16/2024 Note Completed:04/16/2024 2:59 PM \\[id number]
--- NOTE | 2024-04-16 15:09 | Anesthesiology Progress Note ---
Date of Service April 16, 2024 Anesthesia Post Procedure Vital Signs Vital Signs: Temp Pulse Pulse Resp BP BP BP 04/16/24 15:02 78 16 111/75 04/16/24 14:31 36.3 C L 87 20 160/105 H 04/16/24 12:05 36.4 C L 87 20 146/77 H 04/16/24 07:46 36.8 C 78 20 160/84 H 04/16/24 07:41 65 04/16/24 07:32 04/16/24 01:53 36.9 C 72 16 157/85 H 04/15/24 23:36 04/15/24 22:43 36.5 C 82 16 177/97 H 04/15/24 21:55 79 04/15/24 19:30 36.5 C 86 18 145/78 H 04/15/24 18:13 86 04/15/24 17:32 04/15/24 17:32 04/15/24 17:17 36.5 C 86 18 143/97 H 04/15/24 16:33 80 17 169/108 H 04/15/24 16:00 82 18 142/100 H 04/15/24 15:23 80 18 119/103 H Pulse Ox O2 Del Method 04/16/24 15:02 98 Room Air 04/16/24 14:31 97 Room Air 04/16/24 12:05 97 Room Air 04/16/24 07:46 94 Room Air 04/16/24 07:41 04/16/24 07:32 Room Air 04/16/24 01:53 92 Room Air 04/15/24 23:36 Room Air 04/15/24 22:43 94 Room Air 04/15/24 21:55 04/15/24 19:30 96 Room Air 04/15/24 18:13 04/15/24 17:32 Room Air 04/15/24 17:32 Room Air 04/15/24 17:17 96 Room Air 04/15/24 16:33 93 Room Air 04/15/24 16:00 95 Room Air 04/15/24 15:23 97 Room Air Transfer of Care Handoff Completed per policy Notes Mental Status: alert / awake / arousable Patient Amnestic to Procedure: Yes Nausea / Vomiting: adequately controlled Pain: adequately controlled Airway Patency, RR, SpO2: stable & adequate BP & HR: stable & adequate Hydration State: stable & adequate Anesthetic Complications: no major complications apparent
[2024-04-16] MEDS: LIDOCAINE 2% 2 ML VIAL/AMP(20MG/ML) INFIL ONE (15:47)
[2024-04-16] MEDS: PROPOFOL IV EMULSION 10 MG/ML 20 ML VIAL IV ONE (15:47)
[2024-04-16 23:32] VITALS: O2SAT 94
[2024-04-17 06:42] LABS: Hematocrit (blood only) 33.3 % (42.0-52.0); Hemoglobin 11.1 g/dl (14.0-18.0); Mean Corpuscular Hemoglobin 31.6 pg (25.0-34.0); Mean Corpuscular Hgb Conc 33.3 g/dL (32.0-36.0); Mean Corpuscular Volume 94.9 fL (80.0-100.0); Mean Platelet Volume 10.4 fL (9.4-12.4); Platelet Count 136 K/uL (130-400); RDW Coefficient of Variation 15.5 % (11.5-14.5); RDW Standard Deviation 53.3 fL (36.4-46.3); Red Blood Count 3.51 M/uL (4.70-6.10); White Blood Count 5.12 K/ul (4.8-10.8)
[2024-04-17 07:05] LABS: BUN Creatinine Ratio 12.8 (10-20); Calcium 8.5 mg/dl (8.6-10.3); Creatinine Clr Calc Pharmacy 37.3 ml/min; Phosphorus 3.2 mg/dl (2.5-4.9); Potassium 3.6 mmol/L (3.5-5.1)
[2024-04-17 07:41] VITALS: TEMP 98.6
--- NOTE | 2024-04-17 07:56 | Hospitalist Progress Note ---
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 4 days ago started with red blood filling his ostomy bag x 3 episodes with since blood mixed with stool. 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 Biopsied. Injected. Clip was placed. 09/03/23 Cecum, ulcerated mass, biopsy: Ulcerated granulation tissue and inflamed adenoma. Comment: The history of a mass is noted. The vast majority of the specimen consists of ulcerated granulation tissue. One fragment of inflamed adenoma is noted. No diagnostic adenocarcinoma is identified In ER afebrile, vital stable. No leukocytosis. H/H: 11/33. (Hgb: 10 on discharge on 09/07/2023). BUN: 30, Cr: 1.65 In ER given Protonix bolus and drip Currently no apparent bright red blood in ostomy bag. H&H and vitals stable. Monitor H&H Type and cross PRBC's. Hold for now. Blood consent was obtained Continued Protonix IV GI consult CBC, BMP in am 04/16/2023 Hgb 11 today , stable / improved Seen by GI - S/p colonoscopy Findings: - Patient has a prolapsed colostomy in the left upper quadrant. Left hypogastric area. There is a small area of prolapsed mucosa here that had adherent clot. This is visualizable the colostomy site itself. Scope was advanced all the way to the IC valve area where a 5 cm ulcerated mass was present. Most likely representing a colon cancer. No active bleeding identified. Biopsies performed for histology x 5. Impression: - Patient has a prolapsed colostomy in the left upper quadrant. Left hypogastric area. There is a small area of prolapsed mucosa here that had adherent clot. This is visualizable the colostomy site itself. Scope was advanced all the way to the IC valve area where a 5 cm ulcerated mass was present. Most likely representing a colon cancer. No active bleeding identified. Biopsies performed for histology x 5. - No specimens collected. - Colon cancer, ischemia not excluded. Prolapsing mucosa at the ostomy site potential source for bleed Recommendation: - Await pathology results. (5) CKD (chronic kidney disease), stage III: Plan: Cr: 1.65. 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 Will hold zaleplon DVT Prophylaxis SCDs Admit med/tele Full Code as per discussion with pt, however reports would not want prolonged ventilation Follows with Dr Charles Jarrett for routine care Admission and Anticipated Discharge Date Admission Date: April 15, 2024 Subjective Pt seen in follow up of GI bleed, now s/p colonoscopy Currently sitting up in bed in NAD Denies any discomfort, no abd. pain No stool output, no more bleeding noted Feels well today, advance diet Review of Systems Review of Systems: All systems reviewed & are unremarkable except as noted in Subjective Physical Exam Physical Exam: General: no acute distress, WDWN, pleasant elderly male Head: normocephalic, atraumatic Eyes: conjunctiva non-injected, anicteric ENT: normal inspection external ears, nose Neck: supple Lungs: clear, no respiratory distress, no wheezing/rhonchi/rales CV: RRR, no murmur, no pretibial edema Abd: +healed surgical incisions, +ventral hernia, +ostomy left abdomen, currently ostomy bag without noted blood or stool, soft, non-tender to palpation Ext: moves extremities Neuro: A&O x 3, no focal deficits noted, normal affect Skin: warm, dry Results & Data Results & Data Vital Signs (Past 12 Hours) Vital Signs Temp Pulse Pulse Resp BP Pulse Ox O2 Del Method 04/17/24 07:40 37.0 C 97 H 20 152/94 H 94 Room Air 04/17/24 05:44 88 04/17/24 00:32 74 04/16/24 23:31 36.9 C 81 20 142/85 H 94 Room Air 04/16/24 19:58 36.7 C 106 H 24 125/83 95 Room Air Laboratory Results 04/17/24 Range/Units 06:20 WBC 5.12 (4.8-10.8) K/ul RBC 3.51 L (4.70-6.10) M/uL Hgb 11.1 L (14.0-18.0) g/dl Hct 33.3 L (42.0-52.0) % MCV 94.9 (80.0-100.0) fL MCH 31.6 (25.0-34.0) pg MCHC 33.3 (32.0-36.0) g/dL RDW Std Deviation 53.3 H (36.4-46.3) fL RDW Coeff of Janeth 15.5 H (11.5-14.5) % Plt Count 136 (130-400) K/uL MPV 10.4 (9.4-12.4) fL Sodium 139 (136-145) mmol/L Potassium 3.6 (3.5-5.1) mmol/L Chloride 106 (98-107) mmol/L Carbon Dioxide 27 (21-32) mmol/L Anion Gap 6 (3-11) BUN 20 (6-23) mg/dl Creatinine 1.56 H (0.6-1.4) mg/dl Est Cr Clr Drug Dosing 37.3 ml/min eGFR 42.99 BUN/Creatinine Ratio 12.8 (10-20) Glucose 101 H (70-99(Fasting)) mg/dl Calcium 8.5 L (8.6-10.3) mg/dl Phosphorus 3.2 (2.5-4.9) mg/dl Magnesium 2.0 (1.7-2.4) mg/dl Medications Administered Current Inpatient Medications Acetaminophen (Acetaminophen 325 Mg Tab) 650 mg PO Q4H PRN PRN Reason: Pain or Fever Stop: 02/01/25 17:30 Last Admin: 04/16/24 09:02 Dose: 650 mg Diltiazem HCl (Diltiazem Hcl 180 Mg Capcr) 180 mg PO QPM SANTHOSH Stop: 05/15/24 20:59 Last Admin: 04/16/24 20:24 Dose: 180 mg Escitalopram Oxalate (Escitalopram Oxalate 10 Mg Tab) 10 mg PO QAM SANTHOSH Stop: 05/16/24 08:59 Last Admin: 04/16/24 08:27 Dose: 10 mg Pantoprazole Sodium 40 mg/ (Dextrose) 100 mls @ 20 mls/hr IV Q5H SANTHOSH Stop: 05/15/24 12:44 Last Admin: 04/17/24 05:52 Dose: 8 mg/hr, 20 mls/hr Promethazine HCl (Phenergan) 6.25 mg in 50.25 mls @ 201 mls/hr IV Q6H PRN PRN Reason: Nausea And Vomiting Stop: 05/15/24 17:30 Loratadine (Loratadine 10 Mg Tab) 10 mg PO PM SANTHOSH Stop: 05/15/24 20:59 Last Admin: 04/16/24 20:24 Dose: 10 mg Polyethylene Glycol (Polyethylene (Miralax) 17 Gm Pack) 17 gm PO DAILY PRN PRN Reason: Constipation Stop: 05/15/24 17:30 Potassium Chloride (Potassium Chloride Crtab 20 Meq Tabcr) 20 meq PO NOW STA Stop: 04/17/24 07:55 Tamsulosin HCl (Tamsulosin Hcl 0.4 Mg Cap) 0.4 mg PO QPM SANTHOSH Stop: 05/15/24 20:59 Last Admin: 04/16/24 20:23 Dose: 0.4 mg Trazodone HCl (Trazodone Hcl 50 Mg Tab) 50 mg PO HS PRN PRN Reason: Insomnia Stop: 05/15/24 17:30 Last Admin: 04/16/24 20:23 Dose: 50 mg (1) GI bleed GI bleed type/associated pathology: melena Qualified Code(s): K92.1 - Melena (4) Anemia Anemia type: unspecified type Qualified Code(s): D64.9 - Anemia, unspecified
[2024-04-17] MEDS: POTASSIUM CHLORIDE CRTAB 20 MEQ TABCR PO STA (08:53)
[2024-04-17 11:32] VITALS: PULSE 93; RESP 16
[2024-04-17] MEDS: PANTOprazole 40 MG/10 ML SYR IV SCH (12:48)
--- NOTE | 2024-04-17 15:23 | Discharge Summary ---
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 Patient states Friday night started with red blood filling his ostomy bag. Patient states had 3 episodes of filling ostomy bag with red blood over the first 24 hours. Since that time he has noticed blood mixed in with stool. Yesterday feeling a little lightheaded and more nauseated than usual so didn't eat much and states hasn't had stool output today. Today did notice some dark looking blood around stoma site. Denies vomiting, fever/chills. History of hospitalization at [facility] 09/02/2023-09/07/2023 for bright red blood from ostomy and had colonoscopy showing partially obstructing bleeding mass and bleeding was clipped during colonoscopy, and also with parastomal hernia. He states since that time had been doing well until 4 days ago[address] Follow[address] with Dr Kaplan colorectal surgery at [facility] [place]. Patient reports that he would not want any major surgeries but would undergo scope if needed. Has nausea upon first awakening in mornings for past 10 years. Has intermittent right flank pain x years. Denies abdominal pain, fever/chills, diaphoresis, VILLEGAS, syncope, CP, SOB, palpitations, cough, rhinorrhea, paresthesias, weakness, extremity edema, rashes, urinary symptoms. Admission Exam Per Admitting Provider General: no acute distress, WDWN, pleasant elderly male Head: normocephalic, atraumatic Eyes: conjunctiva non-injected, anicteric ENT: normal inspection external ears, nose, mucous membranes moist Neck: supple, trachea midline Lungs: clear, no respiratory distress, no wheezing/rhonchi/rales CV: RRR, no murmur, no pretibial edema Abd: +healed surgical incisions, +ventral hernia, +ostomy left abdomen, currently ostomy bag without noted blood or stool, hypoactive BS, soft, non- tender to palpation Ext: no cyanosis, no calf tenderness Neuro: A&O x 3, no focal deficits noted, normal affect Skin: warm, dry Principal Diagnosis GI bleed Ileocecal mass Discharge Exam General: no acute distress, WDWN, pleasant elderly male Head: normocephalic, atraumatic Eyes: conjunctiva non-injected, anicteric ENT: normal inspection external ears, nose Neck: supple Lungs: clear, no respiratory distress, no wheezing/rhonchi/rales CV: RRR, no murmur, no pretibial edema Abd: +healed surgical incisions, +ventral hernia, +ostomy left abdomen, currently ostomy bag without noted blood or stool, soft, non-tender to palpation Ext: moves extremities Neuro: A&O x 3, no focal deficits noted, normal affect Skin: warm, dry Discharge Data Allergies Allergy/AdvReac Type Severity Reaction Status Date / Time aspirin AdvReac Intermediate NOSE BLEEDS Verified 09/02/23 23:13 EYE NUMBING AGENT AdvReac Intermediate EYE Uncoded 09/02/23 23:13 IRRITATION Consultations 04/15/24 12:45 ED Decision to Admit Stat 04/15/24 14:33 Consult Gastroenterology Routine Procedures Performed Operation Date: 04/16/24 16:30 Actual Procedures p Colonoscopy Biopsy Cytology - Bruce Sanches MD Hospital Course (1) GI bleed: (2) Hematochezia: (3) Parastomal hernia: (4) Anemia: Patient is an 88-year-old male with PMH HTN, HLD, GERD, BPH, ischemic colitis, 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 4 days ago started with red blood filling his ostomy bag x 3 episodes with since blood mixed with stool. 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 Biopsied. Injected. Clip was placed. 09/03/23 Cecum, ulcerated mass, biopsy: Ulcerated granulation tissue and inflamed adenoma. Comment: The history of a mass is noted. The vast majority of the specimen consists of ulcerated granulation tissue. One fragment of inflamed adenoma is noted. No diagnostic adenocarcinoma is identified In ER afebrile, vital stable. No leukocytosis. H/H: . (Hgb: 10 on discharge on 09/07/2023). BUN: 30, Cr: 1.65 In ER given Protonix bolus and drip Currently no apparent bright red blood in ostomy bag. H&H and vitals stable. Monitor H&H Type and cross PRBCs. Hold for now. Blood consent was obtained Continued Protonix IV GI consult CBC, BMP in am 04/17/2023 Hgb 11 today , stable / improved Seen by GI - S/p colonoscopy (04/16/2023) Findings: - Patient has a prolapsed colostomy in the left upper quadrant. Left hypogastric area. There is a small area of prolapsed mucosa here that had adherent clot. This is visualizable the colostomy site itself. Scope was advanced all the way to the IC valve area where a 5 cm ulcerated mass was present. Most likely representing a colon cancer. No active bleeding identified. Biopsies performed for histology x 5. Impression: - Patient has a prolapsed colostomy in the left upper quadrant. Left hypogastric area. There is a small area of prolapsed mucosa here that had adherent clot. This is visualizable the colostomy site itself. Scope was advanced all the way to the IC valve area where a 5 cm ulcerated mass was present. Most likely representing a colon cancer. No active bleeding identified. Biopsies performed for histology x 5. - No specimens collected. - Colon cancer, ischemia not excluded. Prolapsing mucosa at the ostomy site potential source for bleed Recommendation: - Await pathology results. Patient feels well. Plans to follow up with colorectal surgeon. Already tried to call their office yesterday.Plans to call again on Friday. Currently no recurrent bleed noted. Hgb stable/ improved from yesterday. (5) CKD (chronic kidney disease), stage III: Cr: 1.65. 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 Will hold zaleplon Follows with Dr Charles Jarrett for routine care Total Time Total Time Spent Total Time Spent (In Minutes): 40 Discharge Plan Discharge Items Patient Disposition: Home - Self-Care Reason For Visit: GI BLEEDING Discharge Diagnosis: GI bleed Ileocecal mass Activity: Per Instructions section Non-emergency contact: Primary Care Provider, Surgeon, Specialist and Radiologist Diagnostic Call non-emergency contact if: you have any medication questions and your symptoms worsen Follow-up/Referrals: Charles Jarrett MD [Primary Care Provider] - Diet: Regular Addtl Attending Provider Instructions: Follow up with primary care doctor, and colorectal surgeon. Pending Studies at Discharge: Yes Studies:: biopsy results from colonoscopy Stand-Alone Forms: My [employer], Smoking Cessation Medications and DC Order Prescriptions: Continued ascorbic acid (vitamin C) [Vitamin C] 1,000 mg Tablet 1 g PO BID trazodone 50 mg tablet 50 - 100 mg PO HS PRN (Reason: Insomnia) diltiazem HCl 180 mg capsule,extended release 24hr 180 mg PO QPM tamsulosin 0.4 mg capsule 0.4 mg PO QPM loratadine [Claritin] 10 mg Tablet 10 mg PO PM esomeprazole magnesium 20 mg capsule,delayed release(DR/EC) 20 mg PO QAM escitalopram oxalate 10 mg tablet 10 mg PO QAM zaleplon 10 mg capsule 10 mg PO HS PRN (Reason: Insomnia) Rx Instructions: usually takes once a week PreserVision AREDS-2 250-90-40-1 mg Capsule 1 tab PO PM Discharge Orders: Discharge Order (Routine); Ordered 04/17/24 Ordered By: Alphonse Bender Admission Data Admit Date/Time: 04/15/24 13:34 Attending Provider: Alphonse Bender Admit Provider: Natalie Tucker Primary Care Provider: Charles Jarrett Other Providers: Bruce Sanches Chloe L Other Interventions: Discharge Summary Assessment (RN) Last Done: 04/16/24 15:32
[2024-04-17 15:38] VITALS: BP 160/84
--- NOTE | 2024-05-06 06:40 | Coding Query ---
PATHOLOGY To promote full compliance with coding requirements relating to patient care, physician participation is requested in all cases of post acute care registered nurse uncertainty. Please assist us with the question(s) below: Please review the Pathology report and please document any relevant diagnosis(es) below: Diagnosis(es): Diffuse large B-cell lymphoma. Thank you OSWALDO Rascon [facility]
--- NOTE | 2024-05-06 06:42 | Coding Query ---
CODING QUERY To promote full compliance with coding requirements relating to patient care, provider participation is requested in all cases of hoist mechanic uncertainty. Please assist us with the question(s) below: Coding Question(s): Pt admitted with GI hemorrhage; ileocecal bx revealing Diffuse Large B-cell Lymphoma. Please document, if known or suspected, the etiology of the GI hemorrhage. Thanks for your help! Ky Hadley [employer] [facility] Physician's Response(s): GI bleed from ileocecal valva mass - from Diffuse Large B-cell lymphoma. Principal Diagnosis: "that condition established after study, to be chiefly responsible for occasioning the admission of the patient to the hospital for care." Co-Existing Principal Diagnosis: "when two or more diagnoses equally meet the criteria for principal diagnosis as determined by the circumstances of admission, diagnostic work up, and/or therapy provided, and the Alphabetic Index, Tabular List, or another coding guideline does not provide sequencing direction, any one of the diagnoses may be sequenced first." "When the physician has documented what appears to be a current diagnosis in the body of the record, but has not included the diagnosis in the final diagnostic statement, the physician should be asked whether the diagnosis should be added." (Source Coding [facility] 2 QTR90. p3-4) DONTA
== END 2024-04-17 16:01 | disposition home or self-care (01) | DRG 841 ==
LOC: ED 09:57 → 2N 13:34 → SUATTDRO 13:34 → 2N 16:33